=== PATIENT | female | born 1975 | race Caucasian/White ===

== ENCOUNTER 2024-04-24 01:15 | Emergency (ER) | payer SELFPAY ==
[2024-04-24 01:18] VITALS: BP 183/123; PULSE 108; RESP 22; TEMP 37; O2SAT 94; BMI 33.6
[2024-04-24 01:28] VITALS: BP 186/123; PULSE 107; RESP 18; O2SAT 96
[2024-04-24] MEDS: ipratropium-albuterol 3 mL Neb INHALATION (01:40)
[2024-04-24 01:41] VITALS: PULSE 102; RESP 18; O2SAT 93
[2024-04-24] MEDS: dexamethasone 10 mg/mL INJ IM (01:41)
--- NOTE | 2024-04-24 01:45 | XRR_ITS ---
PROCEDURE INFORMATION: Exam: XR Chest Exam date and time: 04/24/2024 1:47 AM Age: 49 years old Clinical indication: Shortness of breath; Additional info: Cough TECHNIQUE: Imaging protocol: Radiologic exam of the chest. Views: 1 view. COMPARISON: No relevant prior studies available. FINDINGS: Lungs: Subtle opacities in the right lung base. Pleural spaces: Unremarkable. No pleural effusion. No pneumothorax. Heart/Mediastinum: Unremarkable. No cardiomegaly. Bones/joints: Unremarkable. XR/XR chest 1V portable [id number] IMPRESSION: Subtle opacities in the right lung base.
--- NOTE | 2024-04-24 01:48 | ED_ITS ---
HPI - SOB/Dyspnea 2 General: Chief Complaint: Shortness of Breath/Dyspnea Stated Complaint: SOB\Cough\Fever Time Seen by Provider: 04/24/24 01:18 History of Present Illness: HPI Narrative: Patient is emergency department with complaints of shortness of breath and cough. Patient had the symptoms for couple weeks. She says her son brought home from school and gave it to her. About 1 week ago she went to her PCP was prescribed antibiotics and steroids she says this has not helped. Patient continues to get worse. Related Data Home Medications Medication Instructions Recorded Confirmed citalopram 40 mg tablet (Celexa) 40 mg PO DAILY 11/13/23 04/17/24 levothyroxine 75 mcg capsule 75 mcg PO DAILY 11/13/23 04/17/24 lisinopril 20 1 tab PO DAILY 11/13/23 04/17/24 mg-hydrochlorothiazide 12.5 mg tablet bupropion HCl 300 mg 24 hr tablet, 300 mg PO QAM 12/22/23 04/17/24 extended release (Wellbutrin XL) Previous Rx's Medication Instructions Recorded albuterol sulfate 2.5 mg/3 mL 2.5 mg (3 mL) inhalation Q6H #180 12/22/23 (0.083 %) solution for nebulization mL albuterol sulfate 90 mcg/actuation 2 puff inhalation Q6H PRN 12/22/23 aerosol inhaler shortness of breath or wheezing #8.5 grams guaifenesin 600 mg tablet, 600 mg PO Q12H #20 tabs 01/20/24 extended release 12 hr fluticasone 250 mcg-salmeterol 50 1 - 2 inh inhalation BID #60 ea 02/26/24 mcg/dose blistr powdr for inhalation (Advair Diskus) amoxicillin 875 mg-potassium 1 tab PO BID #14 tabs 04/17/24 clavulanate 125 mg tablet prednisone 50 mg tablet 50 mg PO DAILY #5 tabs 04/24/24 Allergies Allergy/AdvReac Type Severity Reaction Status Date / Time No Known Allergies Allergy Verified 04/24/24 01:21 Review of Systems 2 General: Reports: 10 or more systems reviewed and unremarkable except in HPI and below PFSH ED 2 PFSH: Social History Smoking and tobacco/nicotine status: never used tobacco/nicotine Physical Exam 2 Const: COMMON NORMALS: no acute distress, average body habitus, patient oriented x3, no limitations, healthy appearing, alert and well nourished HENMT: COMMON NORMALS: normocephalic, atraumatic, hearing grossly normal bilaterally, external ears normal, Normal external nose present and moist oral mucous membranes HEAD & SCALP: normocephalic and atraumatic NOSE: Normal external nose present EXTERNAL EAR: Yes external ears normal Neck/C-Spine: COMMON NORMALS: full ROM, no lymphadenopathy, supple, no meningeal signs, no JVD and Thyroid normal THYROID: Thyroid normal Chest: COMMONS NORMALS: normal inspection of the chest and normal palpation of entire chest wall Resp: COMMON NORMALS: normal respiratory effort, No retractions and No use of accessory muscles; negative for clear to auscultation bilaterally (Decreased breath sounds bilaterally with occasional wheeze) AUSCULTATION: not clear to auscultation bilaterally (Decreased breath sounds bilaterally with occasional wheeze) Cardio: COMMON NORMALS: no JVD, regular rate, regular rhythm, S1 normal heart sound present, S2 normal heart sound present, No gallops present (Cardio), No clicks present (Cardio), No murmurs present (Cardio) and No rub (Cardio) R ATE: regular rate RHYTHM: regular rhythm HEART SOUNDS: S1 normal heart sound present and S2 normal heart sound present GI: COMMON NORMALS: Normal to inspection, nondistended, normoactive bowel sounds present, Soft to palpation, non-tender, No hepatosplenomegaly present and no masses PALPATION: Yes Soft to palpation and Yes No hepatosplenomegaly present Neuro: COMMON NORMALS: patient oriented x3 SENSORIUM/ORIENTATION: Yes alert MENINGEAL SIGNS: Yes no meningeal signs Course 2 Vital Signs: Vital signs: Vital Signs Temperature 98.6 F 04/24/24 01:18 Pulse Rate 102 H 04/24/24 01:41 Respiratory Rate 18 04/24/24 01:41 Blood Pressure 186/123 04/24/24 01:28 Pulse Oximetry 93 04/24/24 01:41 Oxygen Delivery Me thod Room Air 04/24/24 01:41 MDM - SOB/Dyspnea Medical Decision Making Physical exam was performed, lab pain as well as chest x-ray and nasal swab. Were essentially benign. White count was slightly elevated 15.68 this may be due to steroids though subtle opacities in the right lung base may be due to viral illness because patient only has 1 day left of her Augmentin. Patient states she feels better after the DuoNeb and Decadron. We will prescribe prednisone 50 mg 1 pill daily and have her follow back up with her PCP. Medical Records I reviewed the patient's medical records. Lab Data I reviewed the patient's lab results. 04/24/24 02:07 04/24/24 01:45 Labs/Radiology: Radiology Impressions Chest X-Ray 04/24/24 01:45 IMPRESSION: Subtle opacities in the right lung base. Laboratory Results WBC 15.68 10^3/uL (3.29-11.43) H 04/24/24 02:07 Corrected WBC Cancelled 04/24/24 01:45 RBC 4.02 10^6/uL (3.85-5.65) 04/24/24 02:07 Hgb 12.00 g/dL (11.27-16.99) 04/24/24 02:07 Hct 37.4 % (36-47) 04/24/24 02:07 MCV 93.0 fl (85-98) 04/24/24 02:07 MCH 29.9 pg (27-33) 04/24/24 02:07 MCHC 32.1 g/dL (30-55) 04/24/24 02:07 RDW 13.8 % (12.1-15.1) 04/24/24 02:07 Plt Count 283 10^3/cmm (157-399) 04/24/24 02:07 MPV 9.8 fL (7.4-10.4) 04/24/24 02:07 Gran % Cancelled 04/24/24 01:45 Neut % (Auto) 86.4 % 04/24/24 02:07 Lymph % (Auto) 3.9 % 04/24/24 02:07 [place] % (Auto) 2.7 % 04/24/24 02:07 Eos % (Auto) 6.1 % 04/24/24 02:07 Baso % (Auto) 0.4 % 04/24/24 02:07 Neut # (Auto) 13.56 10^3/uL (1.8-7.7) H 04/24/24 02:07 Lymph # (Auto) 0.6 10^3/uL (0.8-4.8) L 04/24/24 02:07 [place] # (Auto) 0.4 10^3/uL (0.2-0.9) 04/24/24 02:07 Eos # (Auto) 1.0 10^3/uL (0.0-0.8) H 04/24/24 02:07 Baso # (Auto) 0.1 10^3/uL (0.0-0.1) 04/24/24 02:07 Absolute Gran (auto) Cancelled 04/24/24 01:45 Nucleated RBC % (auto) 0 % 04/24/24 02:07 Nucleated RBCs # 0.0 /100WBC 04/24/24 02:07 Sodium 135 mmol/L (136-145) L 04/24/24 01:45 Potassium 4.3 mmol/L (3.5-5.1) 04/24/24 01:45 Chloride 104 mmol/L (98-107) 04/24/24 01:45 Carbon Dioxide 22 mmol/L (22-29) 04/24/24 01:45 Anion Gap 13.3 (5-19) 04/24/24 01:45 BUN 23 mg/dL (6-20) H 04/24/24 01:45 Creatinine 0.9 mg/dL (0.5-0.9) 04/24/24 01:45 GFR Calculation 66.5 mL/min (90-130) L 04/24/24 01:45 Glucose 154 mg/dL (65-115) H 04/24/24 01:45 Calculated Osmolality 287 mOsm/kg (285-295) 04/24/24 01:45 Calcium 8.7 mg/dL (8.5-10.5) 04/24/24 01:45 Total Bilirubin 0.2 mg/dL (0.15-1.2) 04/24/24 01:45 AST 20 U/L (0-32) 04/24/24 01:45 ALT 10 U/L (0-33) 04/24/24 01:45 Alkaline Phosphatase 110 U/L (35-105) H 04/24/24 01:45 Total Protein 6.3 g/dL (6.6-8.7) L 04/24/24 01:45 Albumin 3.7 g/dL (3.5-5.2) 04/24/24 01:45 Globulin 2.6 g/dL (1.3-4.6) 04/24/24 01:45 Coronavirus (PCR) Negative (Negative) 04/24/24 01:30 Influenza A (PCR) Negative (Negative) 04/24/24 01:30 Influenza Type B (PCR) Negative (Negative) 04/24/24 01:30 RSV (PCR) Negative (Negative) 04/24/24 01:30 All radiology interpretation(s) finalized by discharge Discharge Plan Discharge Patient Disposition: Home Clinical Impression: Shortness of breath Condition: Stable Prescriptions: New prednisone 50 mg tablet 50 mg PO DAILY Qty: 5 0RF Discontinued prednisone 20 mg tablet 20 mg PO DAILY Qty: 5 0RF No Action lisinopril-hydrochlorothiazide 20-12.5 mg tablet 1 tab PO DAILY levothyroxine 75 mcg capsule 75 mcg PO DAILY citalopram [Celexa] 40 mg tablet 40 mg PO DAILY fluticasone propion-salmeterol [Advair Diskus] 250-50 mcg/dose blister with device 1 - 2 inh inhalation BID Qty: 60 1RF amoxicillin-pot clavulanate 875-125 mg tablet 1 tab PO BID Qty: 14 0RF bupropion HCl [Wellbutrin XL] 300 mg tablet extended release 24 hr 300 mg PO QAM albuterol sulfate 90 mcg/actuation HFA aerosol inhaler 2 puff inhalation Q6H PRN (Reason: shortness of breath or wheezing) Qty: 8.5 4RF albuterol sulfate 2.5 mg /3 mL (0.083 %) solution for nebulization 2.5 mg inhalation Q6H Qty: 180 4RF Rx Instructions: Use every 4-6 hours as needed guaifenesin 600 mg tablet extended release 12hr 600 mg PO Q12H Qty: 20 0RF Discharge Orders: Discharge ED (Routine); Ordered 04/24/24 Ordered By: Shayne Rasmussen Patient Instructions: Shortness of Breath (ED) Activity Restrictions/Additional Instructions: Please finish antibiotics you are prescribed previously on a higher dose of prednisone has been called into your pharmacy. Please take it as directed. Please follow-up with your family practitioner in the next 7 days as needed for further evaluation treatment. Coding Level of Care Code ED Quilting Machine Operator for Roxie Juan
[2024-04-24 02:12] LABS: Basophils # 0.1 10^3/uL (0.0-0.1); Basophils % 0.4 %; Eosinophils % 6.1 %; Hematocrit 37.4 % (36-47); Lymphocytes # 0.6 10^3/uL (0.8-4.8); Lymphocytes % 3.9 %; Mean Corpuscular HGB Conc 32.1 g/dL (30-55); Mean Corpuscular Hemoglobin 29.9 pg (27-33); Mean Platelet Volume 9.8 fL (7.4-10.4); Monocytes # 0.4 10^3/uL (0.2-0.9); Monocytes % 2.7 %; Neutrophils # 13.56 10^3/uL (1.8-7.7); Neutrophils % 86.4 %; Nucleated Red Blood Cells % 0 %; Platelet Count 283 10^3/cmm (157-399); Red Blood Count 4.02 10^6/uL (3.85-5.65); Red Cell Distribution Width 13.8 % (12.1-15.1); White Blood Count 15.68 10^3/uL (3.29-11.43)
[2024-04-24 02:13] LABS: Covid PCR NEGATIVE (Negative); Influenza A NEGATIVE (Negative); Influenza B NEGATIVE (Negative); Respiratory Syncytial Virus Ce NEGATIVE (Negative)
[2024-04-24 02:14] LABS: Alanine Aminotransferase 10 U/L (0-33); Albumin Level 3.7 g/dL (3.5-5.2); Alkaline Phosphatase 110 U/L (35-105); Blood Urea Nitrogen 23 mg/dL (6-20); Calcium 8.7 mg/dL (8.5-10.5); Carbon Dioxide 22 mmol/L (22-29); Chloride 104 mmol/L (98-107); Creatinine Clr Calc Pharmacy 78.6788; Globulin 2.6 g/dL (1.3-4.6); Glomerular Filtration Rate 66.5 mL/min (90-130); Glucose 154 mg/dL (65-115); Osmolality Calculated 287 mOsm/kg (285-295); Sodium 135 mmol/L (136-145); Total Bilirubin 0.2 mg/dL (0.15-1.2); Total Protein 6.3 g/dL (6.6-8.7)
[2024-04-24 02:23] LABS: Anion Gap 13.3 (5-19); Aspartate Amino Transferase 20 U/L (0-32); Potassium 4.3 mmol/L (3.5-5.1)
[2024-04-24 02:43] VITALS: BP 148/109; PULSE 98; O2SAT 96
== END 2024-04-24 02:46 | disposition home or self-care (01) ==
PROVIDERS: Emergency Provider Emergency Medicine
DX: R06.02 Shortness of breath (principal); Z11.52 Encounter for screening for COVID-19
CPT/HCPCS: 0241U; 36415; 71045; 80053; 85025; 94640; 96372; 99284; J1100

== ENCOUNTER 2024-05-25 21:45 | Inpatient (IN) | payer SELFPAY ==
[2024-05-25 21:55] VITALS: BP 152/87; PULSE 107; RESP 24; TEMP 36.9; O2SAT 92; BMI 31.8
--- NOTE | 2024-05-25 22:06 | XRR_ITS ---
PROCEDURE INFORMATION: Exam: XR Chest Exam date and time: 05/25/2024 10:11 PM Age: 49 years old Clinical indication: Cough and shortness of breath; Patient HX: Cough with SOB TECHNIQUE: Imaging protocol: Radiologic exam of the chest. Views: 1 view. COMPARISON: CR (CHEST, ) 04/24/2024 1:47 AM FINDINGS: Lungs: Increasing opacities in the bilateral lung bases, right worse than left suspicious for progression of pneumonia. Clinical correlation and follow-up after treatment should be obtained to ensure resolution. Pleural spaces: Unremarkable. No pleural effusion. No pneumothorax. Heart/Mediastinum: No cardiomegaly. Bones/joints: No acute findings. Small faintly sclerotic focus in the right humeral head, measuring 6 mm. This is nonspecific and may represent bone island. However follow-up/comparison prior study should be considered if there is a concern for metastatic disease. XR/XR chest 1V portable [id number] IMPRESSION: 1. Bibasilar opacities as described. 2. Osseous findings as above.
--- NOTE | 2024-05-25 22:06 | ECG_ITS ---
[facility] [employer] Test Date: 2024-05-25 Pat Name: Yen Harding Department: Room: Gender: Female Environmental Adviser: : 1975 Requested By: Noel Pedersen Order Number: [id number] Shaquille MD: Matthew Sahni M.D. Measurements Intervals [place] Rate: 100 P: 45 AL: 116 QRS: 52 QRSD: 72 T: 55 QT: 338 QTc: 437 Interpretive Statements SINUS TACHYCARDIA OTHERWISE NO SIGNIFICANT ABNORMALITY NOTED ABNORMAL RHYTHM ECG No previous ECG available for comparison Electronically Signed On 05-26-2024 14:04:37 SALES REVIEW CLERK by Matthew Sahni M.D. [id number]
[2024-05-25] MEDS: ipratropium 0.5 mg/2.5 mL Neb INHALATION (22:16)
[2024-05-25 22:17] VITALS: PULSE 99; RESP 22; O2SAT 91
[2024-05-25 22:25] VITALS: PULSE 98; RESP 24; O2SAT 96
[2024-05-25 22:29] LABS: ABG PH Result 7.45 (7.35-7.45); Arterial Blood Gas Hematocrit 38.5 % (37-47); Base Excess ABG -0.1 mmol/L (-2.0-2.0); Blood Gas Sample Type Arterial; Carboxyhemoglobin 1.3 %THgb (0.4-20.1); HCO3 ABG 23.5 mmol/L (22-26); HGB O2 Sat 91.6 % (95-100); Methemoglobin 0.4 % (0.4-1.5); PO2 ABG 58.6 mmHg (80.0-100.0); Total Hemoglobin 12.6 g/dL (12-16)
[2024-05-25 22:30] LABS: Blood Gas Operator Identificat ED; Blood Gas Sample Site Brachial, right; Oxygen Device ROOM AIR; PO2 FiO2 Ratio Arterial Blood 279
[2024-05-25 22:31] LABS: Basophils % 0.3 %; Eosinophils # 0.3 10^3/uL (0.0-0.8); Eosinophils % 2.2 %; Lymphocytes # 0.9 10^3/uL (0.8-4.8); Lymphocytes % 6.9 %; Mean Corpuscular HGB Conc 32.1 g/dL (30-55); Mean Corpuscular Hemoglobin 29.2 pg (27-33); Mean Corpuscular Volume 90.9 fl (85-98); Mean Platelet Volume 10.1 fL (7.4-10.4); Monocytes # 0.6 10^3/uL (0.2-0.9); Monocytes % 4.9 %; Neutrophils % 85.3 %; Nucleated Red Blood Cells % 0 %; Platelet Count 303 10^3/cmm (157-399); Red Blood Count 4.18 10^6/uL (3.85-5.65); Red Cell Distribution Width 14.3 % (12.1-15.1)
[2024-05-25 22:49] LABS: D Dimer 1.08 ug/mLFEU (0-0.59)
[2024-05-25] MEDS: methylPREDNISolone sod succ 125 mg/2 mL INJ IVP (22:50)
[2024-05-25 22:55] LABS: Lactic Sepsis W/Reflex 1.6 mmol/L (0.5-2.2)
--- NOTE | 2024-05-25 23:03 | CTR_ITS ---
PROCEDURE INFORMATION: Exam: CTA Chest With Contrast Exam date and time: 05/25/2024 11:15 PM Age: 49 years old Clinical indication: Cough and shortness of breath and other: Tachycardia; Cough with hemorrhage; Patient HX: Hemoptysis with SOB and tachycardia; Additional info: SOB, tachycardia, hemoptysis TECHNIQUE: Imaging protocol: Computed tomographic angiography of the chest with contrast. Exam focused on the arteries. 3D rendering (Not supervised by radiologist): MIP and/or 3D reconstructed images were created by the technologist. Radiation optimization: All CT scans at this facility use at least one of these dose optimization techniques: automated exposure control; mA and/or kV adjustment per patient size (includes targeted exams where dose is matched to clinical indication); or iterative reconstruction. Contrast material: OMNI 350; Contrast volume: 69 ml; Contrast route: INTRAVENOUS (IV); COMPARISON: CR (CHEST, ) 05/25/2024 10:11 PM RADIATION DOSE METRICS: Total DLP (mGy-cm): 419.13 FINDINGS: Pulmonary arteries: There is no pulmonary embolism in the central-proximal segmental branches. Assessment of the peripheral subsegmental small branches is limited. Aorta: No aortic aneurysm. No aortic dissection. Lungs: Bilateral patchy non round ground-glass opacities, some demonstrating crazy paving pattern. No significant peribronchial thickening. Pleural spaces: Unremarkable. No pneumothorax. No pleural effusion. Heart: No cardiomegaly. No pericardial effusion. Lymph nodes: Unremarkable. No enlarged lymph nodes. Diaphragm: Probable small hiatal hernia. Liver: Somewhat low hepatic parenchymal density suggesting steatosis. Bones/joints: No acute fracture. Soft tissues: Unremarkable. CT/CT angio chest PE protcl [id number] IMPRESSION: 1. No acute PE. 2. Bilateral ground-glass opacities as described. Commonly reported imaging features of COVID-19 pneumonia are present. Other processes such as influenza pneumonia and organizing pneumonia, as can be seen with drug toxicity and connective tissue disease, can cause a similar imaging pattern. (Reference: Naveen) additionally, given history of hemoptysis, interval imaging follow-up exam should also be considered. 3. Probable small hiatal hernia and mild hepatic steatosis. REFERENCES: Naveen Vaughn et al., Radiological Society of [place] Expert Consensus Statement on Reporting Chest CT Findings Related to COVID-19. Endorsed by the Society of Thoracic Radiology, the [employer], and RSNA. Published October 16, 2019.
[2024-05-25 23:06] LABS: Alanine Aminotransferase 7 U/L (0-33); Albumin Level 3.8 g/dL (3.5-5.2); Alkaline Phosphatase 108 U/L (35-105); Anion Gap 16.2 (5-19); Aspartate Amino Transferase 21 U/L (0-32); Blood Urea Nitrogen 16 mg/dL (6-20); Calcium 8.9 mg/dL (8.5-10.5); Carbon Dioxide 22 mmol/L (22-29); Chloride 103 mmol/L (98-107); Globulin 2.9 g/dL (1.3-4.6); Glomerular Filtration Rate 66.5 mL/min (90-130); Glucose 133 mg/dL (65-115); NT Pro B Type Natriuretic Pept 1051 pg/mL (0-125); Osmolality Calculated 289 mOsm/kg (285-295); Potassium 3.2 mmol/L (3.5-5.1); Sodium 138 mmol/L (136-145); Total Bilirubin 0.6 mg/dL (0.15-1.2); Total Protein 6.7 g/dL (6.6-8.7)
[2024-05-25] MEDS: iohexol 350 mg/mL 500 mL Btl (per mL) IV (23:19)
[2024-05-25 23:44] LABS: Covid PCR NEGATIVE (Negative); Influenza A NEGATIVE (Negative); Influenza B NEGATIVE (Negative); Respiratory Syncytial Virus Ce NEGATIVE (Negative)
[2024-05-25 23:47] VITALS: BP 162/106; PULSE 103; RESP 30; O2SAT 96
[2024-05-26] VITALS (19 sets, daily range): BP systolic 137–161; BP diastolic 87–97; PULSE 75–106; RESP 15–39; TEMP 36.6–37.2; O2SAT 90–96
[2024-05-26 00:02] LABS: Bilirubin Urine Negative (Negative); Blood Urine Negative (Negative); Glucose Urine UA Negative (Normal); Ketones Urine 1+ (Negative); Leukocyte Esterase Urine Negative (Negative); Nitrate Urine Negative (Negative); Protein Urine 1+ (Negative); Urine Appearance Clear (CLEAR); Urine Color Yellow (Yellow); pH Urine 5.5 (5-7)
[2024-05-26] MEDS: cefTRIAXone 1,000 mg SDV 1000 MG IVP (00:03)
[2024-05-26] MEDS: AZITHROMYCIN ADD-Vantage 500 MG in 0.9% NaCl ADD-Vantage 250 ML 250 MG IV (00:03)
[2024-05-26 00:08] LABS: Add Urine Microscopic? YES; Bacteria Urine None Seen /hpf; RBC Urine 0-2 /hpf (0-2); Squamous Epithelial Cell Urine 0-5 /hpf (0-5); WBC Urine 0-5 /hpf (0-5)
[2024-05-26 00:09] LABS: Amphetamines Screen Urine Positive (Negative); Barbiturates Screen Urine Negative (Negative); Benzodiazepines Screen Urine Negative (Negative); Cocaine Screen Urine Negative (Negative); Opiate Screen Urine Negative (Negative); PCP Screen Urine Negative (Negative); THC Screen Urine Negative (Negative)
[2024-05-26 00:11] LABS: Specific Gravity, Urine 1.033 (1.005-1.030)
--- NOTE | 2024-05-26 00:31 | ED_ITS ---
HPI - SOB/Dyspnea 2 General: Chief Complaint: Shortness of Breath/Dyspnea Stated Complaint: sob, coughing up blood Time Seen by Provider: 05/25/24 22:01 History of Present Illness: HPI Narrative: 49-year-old female with a 4-day history of increasing shortness of breath cough and congestion. She notes that congestion started in her upper airway and is moved down to her lower airway. She is coughed up some blood today which worries her. She has been quite weak and in bed at home the last 2 days she believes she ran a fever today. Related Data Previous Rx's Medication Instructions Recorded albuterol sulfate 2.5 mg/3 mL 2.5 mg (3 mL) inhalation Q6H #180 12/22/23 (0.083 %) solution for nebulization mL albuterol sulfate 90 mcg/actuation 2 puff inhalation Q6H PRN 12/22/23 aerosol inhaler shortness of breath or wheezing #8.5 grams guaifenesin 600 mg tablet, 600 mg PO Q12H #20 tabs 01/20/24 extended release 12 hr Allergies Allergy/AdvReac Type Severity Reaction Status Date / Time No Known Allergies Allergy Verified 04/24/24 01:21 PFS ED 2 PFSH: Medical History (Updated 05/26/24 @ 01:58 CDT by Jay Rodriguez MD) Hypertension Depression Social History Smoking and tobacco/nicotine status: never used tobacco/nicotine Physical Exam 2 Const: GENERAL APPEARANCE: cooperative, anxious and ill appearing; not frail appearing HENMT: COMMON NORMALS: normocephalic, atraumatic and Normal external nose present HEAD & SCALP: normocephalic and atraumatic FACE & SINUS: normal facial exam and face symmetric NOSE: Normal external nose present Eye: COMMON NORMALS: Equal, round and reactive pupils present and EOMs intact bilaterally PUPIL: Yes Equal, round and reactive pupils present Neck/C-Spine: GENERAL: Yes trachea midline Chest: CHEST: Yes Symmetrical chest wall rise Resp: EFFORT & INSPECTION: Yes symmetric chest movement, Yes tachypneic and Yes labored AUSCULTATION: rhonchi and wheezes Cardio: COMMON NORMALS: regular rhythm RATE: tachycardic RHYTHM: regular rhythm GI: COMMON NORMALS: Normal to inspection, nondistended, normoactive bowel sounds present Extremity: COMMON NORMALS: no pedal edema Neuro: [place] COMA SCALE: document GCS findings [place] coma scale eye opening: Spontaneous [place] coma scale verbal response: Orientated [place] coma scale motor response: Obey commands [place] coma scale total score: 15 S ENSORY EXAM: Yes extremities (intact) Psych: COMMON NORMALS: speech normal SPEECH: Yes normal speech Skin: COMMON NORMALS: no rashes or lesions noted GENERAL SKIN EXAM: no rashes or lesions noted Course 2 Vital Signs: Vital signs: Vital Signs Temperature 98.9 F 05/26/24 01:55 CD T Pulse Rate 101 H 05/26/24 01:55 CD T Respiratory Rate 36 H 05/26/24 01:55 CD T Blood Pressure 153/93 05/26/24 01:55 CD T Pulse Oximetry 95 05/26/24 01:55 CD T Oxygen Delivery Me thod Nasal Cannula 05/26/24 01:56 CD T Oxygen Flow Rate 4 05/26/24 01:05 CD T MDM - SOB/Dyspnea Medical Decision Making Patient was hypoxic on arrival. She is placed on nasal cannula oxygen after blood gas shows a pO2 of 58 on room air. pH is 7.45 with a pCO2 of 34. Potassium is 3.2. Chest x-ray shows bilateral infiltrates. D-dimer is elevated, so CTA was completed showing atypical pneumonia features. No PE present. Potassium is repleted. Urine drug screen is positive for amphetamines. Lactic acid is 1.6. Since she is requiring a significant amount of oxygen, she will be admitted. She has received Rocephin and Zithromax after blood cultures in the ER. COVID/flu/RSV PCR is negative. Lab Data 05/25/24 22:23 05/25/24 22:23 Labs/Radiology: Radiology Impressions Chest X-Ray 05/25/24 22:06 IMPRESSION: 1. Bibasilar opacities as described. 2. Osseous findings as above. Chest CTA 05/25/24 23:03 IMPRESSION: 1. No acute PE. 2. Bilateral ground-glass opacities as described. Commonly reported imaging features of COVID-19 pneumonia are present. Other processes such as influenza pneumonia and organizing pneumonia, as can be seen with drug toxicity and connective tissue disease, can cause a similar imaging pattern. (Reference: Naveen) additionally, given history of hemoptysis, interval imaging follow-up exam should also be considered. 3. Probable small hiatal hernia and mild hepatic steatosis. REFERENCES: Naveen S, et al., Radiological Society of [place] Expert Consensus Statement on Reporting Chest CT Findings Related to COVID-19. Endorsed by the Society of Thoracic Radiology, the [place] [employer], and RSNA. Published October 16, 2019. Laboratory Results WBC 12.90 10^3/uL (3.29-11.43) H 05/25/24 22: RBC 4.18 10^6/uL (3.85-5.65) 05/25/24 22:23 Hgb 12.20 g/dL (11.27-16.99) 05/25/24 22: Hct 38.0 % (36-47) 05/25/24: MCV 90.9 fl (85-98) 05/25/24 22: MCH 29.2 pg (27-33) 05/25/24 22: MCHC 32.1 g/dL (30-55) 05/25/24 22: RDW 14.3 % (12.1-15.1) 05/25/24 22: Plt Count 303 10^3/cmm (157-399) 05/25/24 22: MPV 10.1 fL (7.4-10.4) 05/25/24 22: Neut % (Auto) 85.3 % 05/25/24:23 Lymph % (Auto) 6.9 % 05/25/24 22:23 [place] % (Auto) 4.9 % 05/25/24 22:23 Eos % (Auto) 2.2 % 05/25/24 22:23 Baso % (Auto) 0.3 % 05/25/24:23 Neut # (Auto) 11.00 10^3/uL (1.8-7.7) H 05/25/24 22: Lymph # (Auto) 0.9 10^3/uL (0.8-4.8) 05/25/24 22:23 [place] # (Auto) 0.6 10^3/uL (0.2-0.9) 05/25/24 22:23 Eos # (Auto) 0.3 10^3/uL (0.0-0.8) 05/25/24 22:23 Baso # (Auto) 0.0 10^3/uL (0.0-0.1) 05/25/24 22:23 Nucleated RBC % (auto) 0 % 05/25/24 22:23 Nucleated RBCs # 0.0 /100WBC 05/25/24 22:23 D-Dimer 1.08 ug/mLFEU (0-0.59) H 05/25/24 22:23 Specimen Type Arterial 05/25/24 22:19 Sample Site Brachial, right 05/25/24 22:19 ABG pH 7.45 (7.35-7.45) 05/25/24 22:19 ABG pCO2 34.0 mmHg (35-45) L 05/25/24 22:19 ABG pO2 58.6 mmHg (80.0-100.0) L 05/25/24 22:19 ABG PO2/FiO2 Ratio 279 05/25/24 22:19 ABG HCO3 23.5 mmol/L (22-26) 05/25/24 22:19 ABG Base Excess -0.1 mmol/L (-2.0-2.0) 05/25/24 22:19 Sean Test N/a 05/25/24 22:19 Hematocrit 38.5 % (37-47) 05/25/24 22:19 Hgb O2 Saturation 91.6 % (95-100) L 05/25/24 22:19 Carboxyhemoglobin 1.3 %THgb (0.4-20.1) 05/25/24 22:19 Methemoglobin 0.4 % (0.4-1.5) 05/25/24 22:19 Total Hemoglobin 12.6 g/dL (12-16) 05/25/24 22:19 O2 Delivery Device Room air 05/25/24 22:19 FiO2 21.0 % 05/25/24 22:19 Form Grader Operator ID Ed 05/25/24 22:19 Sodium 138 mmol/L (136-145) 05/25/24 22:23 Potassium 3.2 mmol/L (3.5-5.1) L 05/25/24 22:23 Chloride 103 mmol/L (98-107) 05/25/24 22:23 Carbon Dioxide 22 mmol/L (22-29) 05/25/24 22:23 Anion Gap 16.2 (5-19) 05/25/24 22:23 BUN 16 mg/dL (6-20) 05/25/24 22:23 Creatinine 0.9 mg/dL (0.5-0.9) 05/25/24 22:23 GFR Calculation 66.5 mL/min (90-130) L 05/25/24 22:23 Glucose 133 mg/dL (65-115) H 05/25/24 22:23 Calculated Osmolality 289 mOsm/kg (285-295) 05/25/24 22:23 Lactic Acid 1.6 mmol/L (0.5-2.2) 05/25/24 22:23 Calcium 8.9 mg/dL (8.5-10.5) 05/25/24 22:23 Total Bilirubin 0.6 mg/dL (0.15-1.2) 05/25/24 22:23 AST 21 U/L (0-32) 05/25/24 22:23 ALT 7 U/L (0-33) 05/25/24 22:23 Alkaline Phosphatase 108 U/L (35-105) H 05/25/24 22:23 NT-Pro-B Natriuret Pep 1051 pg/mL (0-125) H 05/25/24 22:23 Total Protein 6.7 g/dL (6.6-8.7) 05/25/24 22:23 Albumin 3.8 g/dL (3.5-5.2) 05/25/24 22:23 Globulin 2.9 g/dL (1.3-4.6) 05/25/24 22:23 Urine Color Yellow (Yellow) 05/25/24 23:45 Urine Appearance Clear (CLEAR) 05/25/24 23:45 Urine pH 5.5 (5-7) 05/25/24 23:45 Ur Specific [place] 1.033 (1.005-1.030) H 05/25/24 23:45 Urine Protein 1+ (Negative) A 05/25/24 23:45 Urine Glucose (UA) Negative (Normal) 05/25/24 23:45 Urine Ketones 1+ (Negative) H 05/25/24 23:45 Urine Blood Negative (Negative) 05/25/24 23:45 Urine Nitrate Negative (Negative) 05/25/24 23:45 Urine Bilirubin Negative (Negative) 05/25/24 23:45 Urine Urobilinogen 1.0 mg/dL (Negative) 05/25/24 23:45 Ur Leukocyte Esterase Negative (Negative) 05/25/24 23:45 Urine RBC 0-2 /hpf (0-2) 05/25/24 23:45 Urine WBC 0-5 /hpf (0-5) 05/25/24 23:45 Ur Squamous Epith Cells 0-5 /hpf (0-5) 05/25/24 23:45 Amorphous Sediment Not Reportable 05/25/24 23:45 Urine Bacteria None seen /hpf (NONE) 05/25/24 23:45 Hyaline Casts 0.40 /lpf 05/25/24 23:45 Urine Opiates Screen Negative ng/mL (Negative) 05/25/24 23:45 Ur Barbiturates Screen Negative ng/mL (Negative) 05/25/24 23:45 Ur Phencyclidine Scrn Negative ng/mL (Negative) 05/25/24 23:45 Ur Amphetamines Screen Positive ng/mL (Negative) H 05/25/24 23:45 U Benzodiazepines Scrn Negative ng/mL (Negative) 05/25/24 23:45 Urine Cocaine Screen Negative ng/mL (Negative) 05/25/24 23:45 U Marijuana (THC) Screen Negative ng/mL (Negative) 05/25/24 23:45 Coronavirus (PCR) Negative (Negative) 05/25/24 23:01 Influenza A (PCR) Negative (Negative) 05/25/24 23:01 Influenza Type B (PCR) Negative (Negative) 05/25/24 23:01 RSV (PCR) Negative (Negative) 05/25/24 23:01 All radiology interpretation(s) finalized by discharge Discharge Plan Discharge Patient Disposition: Admitted As Inpatient Admit Provider: Jay Rodriguez Clinical Impression: Community acquired pneumonia, Acute hypoxemic respiratory failure Condition: Stable Coding Level of Care Code ED Bottler for Roxie Juan
[2024-05-26] MEDS: potassium chloride ER 20 mEq Tablet 40 MEQ PO (01:02)
--- NOTE | 2024-05-26 01:07 | P.HP_ITS ---
Providers/Chief Complaint 2 Admitting Physician: Jay Rodriguez MD Chief Complaint: sob, coughing up blood History of Present Illness Yen Harding is a 49 year old female Medications/Allergies Home Medications Medication Instructions Recorded Confirmed Last Taken Type albuterol sulfate 2.5 mg/3 mL 2.5 mg (3 mL) inhalation Q6H #180 12/22/23 05/26/24 Unknown Rx (0.083 %) solution for nebulization mL albuterol sulfate 90 mcg/actuation 2 puff inhalation Q6H PRN 12/22/23 05/26/24 Unknown Rx aerosol inhaler shortness of breath or wheezing #8.5 grams guaifenesin 600 mg tablet, 600 mg PO Q12H #20 tabs 01/20/24 05/26/24 Unknown Rx extended release 12 hr Allergies Allergy/AdvReac Type Severity Reaction Status Date / Time No Known Allergies Allergy Verified 04/24/24 01:21 PFSH Acute 2 PFSH: Medical History (Updated 05/26/24 @ 01:58 CDT by Jay Rodriguez MD) Hypertension Depression Social History Smoking and tobacco/nicotine status: never used tobacco/nicotine Vitals/I&O/Wt Last Vital Signs Temp 98.9 F 05/26/24 01:55 CDT Pulse 101 H 05/26/24 01:55 CDT Resp 36 H 05/26/24 01:55 CDT BP 153/93 05/26/24 01:55 CDT Pulse Ox 95 05/26/24 01:55 CDT O2 Del Method Nasal Cannula 05/26/24 01:55 CDT O2 Flow Rate 4 05/26/24 01:05 CDT 05/25/24 05/25/24 05/26/24 14:59 22:59 05:59 Intake Total 250 / 250 Balance 250 / 250 Weight last 48 hrs Weight 81.647 kg Data 05/25/24 22:23 05/25/24 22:23 Micro: Microbiology 05/25/24 22:26 Blood Culture - Preliminary Blood SPECIMEN COLLECTED 05/25/24 22:23 Blood Culture - Preliminary Blood SPECIMEN COLLECTED Coding Level of Care Code Acute Code for Chg Fwd
[2024-05-26] MEDS: guaiFENesin 600 mg Tablet PO (01:09)
[2024-05-26] MEDS: citalopram 20 mg Tablet 40 MG PO (01:09)
[2024-05-26] MEDS: enoxaparin 40 mg/0.4 mL Syringe SUBCUT (01:09)
--- NOTE | 2024-05-26 01:45 | P.HP_ITS ---
Providers/Chief Complaint 2 Admitting Physician: Jay Rodriguez MD Primary Care Provider: None local Last PCP in [place] Chief Complaint: sob, coughing up blood History of Present Illness Yen Harding is a 49 year old female who has been sick for 3 days with cough and asthma attack. She has been coughing up blood. Patient denies asthma as a child but states that since she developed COVID about 4 years ago contracted just before the vaccine came out she has had reactive airways, asthma attacks exacerbated by communicable respiratory illness and or anxiety. She has typically required steroids to improve. Patient moved here from [place] approximately 1 year ago having met a man and and moved locally. He is a contractor. Patient reports that they have marital problems and he moved out 2 days ago and she is filing for divorce. Patient has no car away into the hospital. He has a 16-year-old son that is being cared for by a friend currently. Patient states that she is distressed and unable to breathe. She has been unable to refill her medications having [place] Medicaid for insurance. She has filed for local insurance in [place] but has not been enrolled or assigned PCP. Patient states that she has recently been depressed and out of her citalopram. She has taken that for years since age 16. She admits that she has developed a tic from that which they told her would not develop but only with taking antipsychotics which she has not been on. I addressed her recurrent respiratory illness and drug screen positive for amphetamines suspicious that she was smoking methamphetamine. Patient states that she has been using methamphetamines for about 1 month she and her were using this for increasing sexual libido. She says that she does not feel well and is also overweight now running out of her medications and he had suggested that she use meth. She states she does not smoke it but is only taking capsules. does smoke meth. 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 or discharge Neuro no seizures or strokes Psychiatric patient admits to depression she has been thinking that her life is over with his divorce but has not been suicidal Medications/Allergies Home Medications Medication Instructions Recorded Confirmed Last Taken Type albuterol sulfate 2.5 mg/3 mL 2.5 mg (3 mL) inhalation Q6H #180 12/22/23 05/26/24 Unknown Rx (0.083 %) solution for nebulization mL albuterol sulfate 90 mcg/actuation 2 puff inhalation Q6H PRN 12/22/23 05/26/24 Unknown Rx aerosol inhaler shortness of breath or wheezing #8.5 grams guaifenesin 600 mg tablet, 600 mg PO Q12H #20 tabs 01/20/24 05/26/24 Unknown Rx extended release 12 hr Allergies Allergy/AdvReac Type Severity Reaction Status Date / Time No Known Allergies Allergy Verified 04/24/24 01:21 PFSH Acute 2 PFSH: Medical History (Updated 05/26/24 @ 01:58 CDT by Jay Rodriguez MD) Hypertension Depression Social History Smoking and tobacco/nicotine status: never used tobacco/nicotine Female Reproductive History: Other female reproductive history: RICARDO/BSO at age 39 not on hormone replacement Vitals/I&O/Wt Last Vital Signs Temp 98.4 F 05/25/24 21:55 Pulse 101 H 05/26/24 01:05 CDT Resp 19 H 05/26/24 01:05 CDT BP 138/97 05/26/24 01:05 CDT Pulse Ox 95 05/26/24 01:05 CDT O2 Del Method Nasal Cannula 05/26/24 01:05 CDT O2 Flow Rate 4 05/26/24 01:05 CDT Weight last 48 hrs Weight 81.647 kg Physical Exam 2 Narrative: General Well-developed well-nourished white female with central obesity she is in mild respiratory distress with tachypnea and anxious mood CV regular rate and rhythm Lungs prolonged respiratory phase with wheezing but good air movement Abdomen positive bowel sounds soft obese nontender Calves no tenderness cords appreciable edema Mood and affect anxious and depressed Skin warm and dry Hygiene some body odor Oral Mallampati 1 dentition intact Neck no bruits Data 05/25/24 22:23 05/25/24 22:23 Micro: Microbiology 05/25/24 22:26 Blood Culture - Preliminary Blood SPECIMEN COLLECTED 05/25/24 22:23 Blood Culture - Preliminary Blood SPECIMEN COLLECTED A&P Assessment and plan (1) Acute hypoxemic respiratory failure: X-ray and CT show bilateral pneumonia. Patient denies methamphetamine smoking just taking orally. Start Decadron 4 mg twice a day continue Rocephin and azithromycin. Patient will be admitted to the hospital and anticipate greater than 2 midnights (2) Community acquired pneumonia: As above (3) Surgical menopause, symptomatic: Patient had surgical menopause at age 39. She is reporting some sexual dysfunction. She should establish with PCP and consider hormone replacement with estrogen progesterone and low-dose testosterone (4) Methamphetamine use disorder, mild: Patient is counseled that methamphetamines unhealthy and appears to be worsening her nervous tic as well as her breathing and anxiety. Patient is agreeable to this evaluation and intends to quit (5) Depression: Resume citalopram and bupropion. Patient denies suicidal ideation. Patient is very concerned about getting her SSRI prescription refilled. I have referred her to social work supervisor for help with enrolling in Medicaid and establishing with a local physician (6) Hypothyroidism: Resume levothyroxine. Patient has been out for 2 weeks (7) Hypertension: Resume lisinopril hold HCTZ portion Attestations 2 Medical Necessity Statement*: Anticipate the patient's hospitalization will cross 2 midnights Coding Level of Care Code 45043 Diagnoses Acute hypoxemic respiratory failure J96.01 Community acquired pneumonia J18.9 Surgical menopause, symptomatic E89.41 Methamphetamine use disorder, mild F15.10 Depression F32.A Hypothyroidism E03.9 Hypertension I10 Time Spent (min) 70
[2024-05-26] MEDS: LORazepam 0.5 mg Tablet PO ×2 (01:48→21:11)
--- NOTE | 2024-05-26 02:25 | PM.HP ---
Providers/Chief Complaint Admitting Physician: Jay Rodriguez MD Primary Care Provider: Physician in [place] none local Chief Complaint: sob, coughing up blood History of Present Illness Yen Harding is a 49 year old female who I saw in the emergency department and dictated a full note which was lost. I think it was lost due to time change and [employer] glitch. I started dictating within the 1 AM to 2 AM time. And saved a full note but when we open none of the boxes were filled in. This will represent a redictation of what I can recall 49-year-old female reports 3 days of progressive respiratory illness. This is characterized by cough wheezing and now productive of blood. She states that 4 years ago she had contracted COVID and since then has been afflicted with reactive airway disease needing steroids and antibiotics. Prior to that illness as a child and adolescent she did not have asthma. The last 6 months the reactive airways seem to be exacerbated also by anxiety. She reports going through anxiety currently due to break-up and starting divorce with her . Patient states she knows her for 2 years but he has proven to be a different person than she a year ago. She has a 16-year-old son that lives with her and currently cared for by a friend while patient is in the hospital. has moved out 2 days ago and declined to drive her to the hospital. Reviewing her cough recurrent ER visits for respiratory illness and amphetamine positive urine I question her regarding methamphetamine smoking and she states she has been taking methamphetamine capsules concomitant with her 's methamphetamine use via smoking to try and improve her sexual libido. She states it is done nothing for that but has caused her anxiety. Patient reports RICARDO/BSO for 18 pound right ovarian mass at age 39 Patient moved here from [place]. 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 She denies tobacco use or weed. She has used meth capsules for a month about 6 times. She wants full CODE STATUS. Review of Systems Narrative: General Positive for weight gain she has been out of her medications for 2 weeks. Patient reports anxiety and depression without suicidal plan or intent she has been feeling hopeless with her life currently. 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 She she says was told that only occurred with antipsychotics but occurred with her SSRI Currently stressed out over separation and intended divorce from her also financially struggling and has no car Medications/Allergies Home Medications Medication Instructions Recorded Confirmed Last Taken Type albuterol sulfate 2.5 mg/3 mL 2.5 mg (3 mL) inhalation Q6H #180 12/22/23 05/26/24 Unknown Rx (0.083 %) solution for nebulization mL albuterol sulfate 90 mcg/actuation 2 puff inhalation Q6H PRN 12/22/23 05/26/24 Unknown Rx aerosol inhaler shortness of breath or wheezing #8.5 grams guaifenesin 600 mg tablet, 600 mg PO Q12H #20 tabs 01/20/24 05/26/24 Unknown Rx extended release 12 hr Allergies Allergy/AdvReac Type Severity Reaction Status Date / Time No Known Allergies Allergy Verified 04/24/24 01:21 PFSH Acute PFSH: Medical History (Updated 05/26/24 @ 01:58 CDT by Jay Rodriguez MD) Hypertension Depression Social History Smoking and tobacco/nicotine status: never used tobacco/nicotine Vitals/I&O/Wt Last Vital Signs Temp 98.9 F 05/26/24 01:55 CDT Pulse 101 H 05/26/24 01:55 CDT Resp 36 H 05/26/24 01:55 CDT BP 153/93 05/26/24 01:55 CDT Pulse Ox 95 05/26/24 01:55 CDT O2 Del Method Nasal Cannula 05/26/24 01:56 CDT O2 Flow Rate 4 05/26/24 01:05 CDT 05/25/24 05/25/24 05/26/24 14:59 22:59 05:59 Intake Total 250 / 250 Balance 250 / 250 Weight last 48 hrs Weight 87.175 kg Weight 81.647 kg Physical Exam Narrative: General Well-developed well-nourished female with central obesity CV regular rate and rhythm Lungs prolong expiratory phase with wheezing air movement is good Abdomen positive bowel sounds soft nontender Calves no tenderness or pedal edema dorsal pedal pulses 2+ Mood and affect depressed and anxious Neuro she has recurrent jerky take like head movements pupils are equally round and reactive speech is clear patient is alert and oriented and pleasant Hygiene diminished with some body odor Data 05/25/24 22:23 05/25/24 22:23 Micro: Microbiology 05/25/24 22:26 Blood Culture - Preliminary Blood SPECIMEN COLLECTED 05/25/24 22:23 Blood Culture - Preliminary Blood SPECIMEN COLLECTED A&P Assessment and plan (1) Acute hypoxemic respiratory failure: Patient with bilateral infiltrates seen on x-ray and very evident on CT scan with some dense stranding infiltrates. Will continue Rocephin and azithromycin started in the emergency department. Start Decadron 4 mg twice a day. He received 1 dose of Solu-Medrol 125 mg in the ER. I was concerned that she might be smoking methamphetamines and having a bad reaction but she denies smoking meth and does admit to oral capsules. She is not a smoker of weed or tobacco. She reports propensity for illness subsequent to COVID infection 4 years ago. (2) Community acquired pneumonia: As above (3) Methamphetamine use disorder, mild: Patient is counseled to discontinue methamphetamines. (4) Surgical menopause, symptomatic: I did not get a chance to address hormone replacement with her and that should be undertaken outpatient but given her decreased libido and sexual function consider estrogen, progesterone and testosterone in hormonal therapy (5) Depression: Patient reports her depression typically well-controlled exacerbated by marital problems and no local insurance to obtain medications and no car. I have consulted psychiatric social worker supervisor. I think she should also be referred to mental health outpatient if not inpatient depending on how she is doing in 1 to 2 days. (6) Hypothyroidism: Patient has been out of levothyroxine 2 weeks. I reinstated that today (7) Hypertension: Hold HCTZ resume lisinopril monitor blood pressure Attestations Medical Necessity Statement*: Anticipate the patient's hospitalization will span greater than 2 midnights. Coding Level of Care Code 07869 Diagnoses Acute hypoxemic respiratory failure J96.01 Community acquired pneumonia J18.9 Methamphetamine use disorder, mild F15.10 Surgical menopause, symptomatic E89.41 Depression F32.A Hypothyroidism E03.9 Hypertension I10 Time Spent (min) 70
[2024-05-26] MEDS: benzonatate 100 mg Capsule 200 MG PO ×3 (02:47→18:10)
[2024-05-26] MEDS: albuterol 2.5 mg/3 mL Neb INHALATION (04:20)
[2024-05-26] MEDS: levothyroxine 75 mcg Tablet PO (05:14)
[2024-05-26] MEDS: ipratropium-albuterol 3 mL Neb INHALATION ×5 (08:11→23:33)
[2024-05-26 09:13] LABS: HIV 1 & 2 Antibody Non-Reactive (Non-Reactiv); HIV 1 & 2 Antigen Non-Reactive (Non-Reactiv)
[2024-05-26 09:17] LABS: Hepatitis A Antibody IgM Non-Reactive (Nonreactive); Hepatitis B Core IgM Non-Reactive (Nonreactive); Hepatitis B Surface Antigen Non-Reactive (Nonreactive); Hepatitis C Virus Antibody Non-Reactive (Nonreactive)
[2024-05-26] MEDS: buPROPion XL (24 HR) 300 mg Tablet PO (10:06)
[2024-05-26] MEDS: BuSPIRONE 10 mg Tablet PO ×2 (10:06→18:11)
[2024-05-26] MEDS: lisinopril 20 mg Tablet PO (10:07)
[2024-05-26] MEDS: fluticasone nasal spray 16gm Btl 1 SPRAY NASAL ×2 (10:09→18:11)
[2024-05-26] MEDS: budesonide 0.5 mg/2 mL Neb INHALATION ×2 (11:24→20:29)
[2024-05-26] MEDS: methylPREDNISolone sod succ 40 mg/mL INJ IVP ×2 (11:41→18:11)
--- NOTE | 2024-05-26 15:13 | P.PN_ITS ---
Subjective 2 Subjective: Was seen this morning, she is actively wheezing, has a nonproductive cough, no fevers, no chills, mild nasal flaring, mild intercostal retractions, tachypnea, short of breath with a few words, denies any chest pain, Vitals/I&O/Wt Last Vital Signs Temp 98.2 F 05/26/24 11:52 Pulse 92 05/26/24 11:52 Resp 21 H 05/26/24 11:52 BP 137/92 05/26/24 11:52 Pulse Ox 96 05/26/24 11:52 O2 Del Method Nasal Cannula 05/26/24 11:52 O2 Flow Rate 2 05/26/24 11:25 05/26/24 05/26/24 05/26/24 06:59 14:59 22:59 Intake Total 480 / 480 Balance 480 / 480 Weight last 48 hrs Weight 87.09 kg Weight 87.175 kg Weight 81.647 kg Physical Exam 2 Const: COMMON NORMALS: no acute distress and patient oriented x3 Resp: OTHER: Wheezing in all lung rehman, tachypnea, tachycardia, mild nasal flaring, mild intercostal retractions Cardio: COMMON NORMALS: regular rhythm, S1 normal heart sound present and S2 normal heart sound present RATE: tachycardic RHYTHM: regular rhythm H EART SOUNDS: S1 normal heart sound present and S2 normal heart sound present GI: COMMON NORMALS: Normal to inspection, nondistended, normoactive bowel sounds present and non-tender Extremity: COMMON NORMALS: no pedal edema Neuro: COMMON NORMALS: patient oriented x3 Psych: COMMON NORMALS: mental status grossly normal Data 05/25/24 22:23 05/25/24 22:23 Micro: Microbiology 05/25/24 22:26 Blood Culture - Preliminary Blood SPECIMEN COLLECTED 05/25/24 22:23 Blood Culture - Preliminary Blood SPECIMEN COLLECTED A&P Assessment and plan (1) Acute hypoxemic respiratory failure: (2) Community acquired pneumonia: (3) Methamphetamine use disorder, mild: Patient is counseled to discontinue methamphetamines. (4) Surgical menopause, symptomatic: (5) Depression: (6) Hypothyroidism: Patient has been out of levothyroxine 2 weeks. I reinstated that today (7) Hypertension: Hold HCTZ resume lisinopril monitor blood pressure (8) Asthma exacerbation: Plan Acute hypoxic respiratory failure -Secondary to pneumonia -Secondary to asthma exacerbation -CTA chest CT/CT angio chest PE protcl [id number] IMPRESSION: 1. No acute PE. 2. Bilateral ground-glass opacities as described. Commonly reported imaging features of COVID-19 pneumonia are present. Other processes such as influenza pneumonia and organizing pneumonia, as can be seen with drug toxicity and connective tissue disease, can cause a similar imaging pattern. (Reference: Naveen) additionally, given history of hemoptysis, interval imaging follow-up exam should also be considered. 3. Probable small hiatal hernia and mild hepatic steatosis. Plan -Monitor respiratory status closely -DuoNeb -Budesonide -Continue Rocephin -Continue azithromycin -Prednisone 40 mg IV push every 8 hours -Sputum cultures -Shiraz Bee for cough -Full code -Lovenox for DVT prophylaxis Attestations 2 Medical Necessity Statement*: Patient requires hospitalization, inpatient, greater than 2 midnights, for acute hypoxic respiratory failure secondary to pneumonia, exacerbation of her asthma exacerbation Diagnoses Acute hypoxemic respiratory failure J96.01 Community acquired pneumonia J18.9 Methamphetamine use disorder, mild F15.10 Surgical menopause, symptomatic E89.41 Depression F32.A Hypothyroidism E03.9 Hypertension I10 Asthma exacerbation J45.901
[2024-05-27] VITALS (12 sets, daily range): BP systolic 140–154; BP diastolic 82–96; PULSE 82–110; RESP 16–28; TEMP 36.6–36.8; O2SAT 92–97
[2024-05-27] MEDS: cefTRIAXone 1,000 mg SDV 1000 MG IVP (00:40)
[2024-05-27] MEDS: benzonatate 100 mg Capsule 200 MG PO ×3 (00:41→22:28)
[2024-05-27] MEDS: enoxaparin 40 mg/0.4 mL Syringe SUBCUT (00:52)
[2024-05-27] MEDS: methylPREDNISolone sod succ 40 mg/mL INJ IVP ×3 (02:16→16:56)
[2024-05-27] MEDS: ipratropium-albuterol 3 mL Neb INHALATION ×5 (03:02→20:41)
[2024-05-27 05:53] LABS: Basophils % 0.1 %; Hematocrit 38.1 % (36-47); Lymphocytes # 0.7 10^3/uL (0.8-4.8); Lymphocytes % 3.9 %; Mean Corpuscular HGB Conc 31.5 g/dL (30-55); Mean Corpuscular Hemoglobin 29.1 pg (27-33); Mean Corpuscular Volume 92.5 fl (85-98); Mean Platelet Volume 10.8 fL (7.4-10.4); Monocytes # 0.3 10^3/uL (0.2-0.9); Monocytes % 1.8 %; Neutrophils # 16.24 10^3/uL (1.8-7.7); Neutrophils % 93.5 %; Nucleated Red Blood Cells % 0 %; Platelet Count 316 10^3/cmm (157-399); Red Blood Count 4.12 10^6/uL (3.85-5.65); Red Cell Distribution Width 14.5 % (12.1-15.1); White Blood Count 17.38 10^3/uL (3.29-11.43)
[2024-05-27 06:18] LABS: Anion Gap 14.8 (5-19); Blood Urea Nitrogen 26 mg/dL (6-20); Calcium 8.9 mg/dL (8.5-10.5); Carbon Dioxide 23 mmol/L (22-29); Chloride 104 mmol/L (98-107); Creatinine Clr Calc Pharmacy 90.6821; Glomerular Filtration Rate 76.2 mL/min (90-130); Glucose 164 mg/dL (65-115); Osmolality Calculated 294 mOsm/kg (285-295); Potassium 3.8 mmol/L (3.5-5.1); Sodium 138 mmol/L (136-145)
[2024-05-27] MEDS: levothyroxine 75 mcg Tablet PO (06:28)
[2024-05-27] MEDS: lisinopril 20 mg Tablet PO (08:32)
[2024-05-27] MEDS: citalopram 20 mg Tablet 40 MG PO (08:32)
[2024-05-27] MEDS: BuSPIRONE 10 mg Tablet PO ×2 (08:32→16:56)
[2024-05-27] MEDS: buPROPion XL (24 HR) 300 mg Tablet PO (08:33)
[2024-05-27] MEDS: azithromycin 250 mg Tablet 500 MG PO (08:33)
[2024-05-27] MEDS: fluticasone nasal spray 16gm Btl 1 SPRAY NASAL ×2 (08:33→16:56)
[2024-05-27] MEDS: budesonide 0.5 mg/2 mL Neb INHALATION ×2 (08:41→20:41)
--- NOTE | 2024-05-27 09:56 | PC.CHAP ---
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 [] Patient/Family/Request visit [] Outpatient visit [] Follow-up visit [] Physician referral [] Code/Alert [x] Routine visit [] Staff referral [] Actively dying [x] Patient sleeping [] Family support [] [] Out of room [] Palliative care [] [] Receiving care in room [] Pre-surgical visit [] Trauma [] Long length of stay [] ICU visit [] Other: Relational/Emotional Strength [] Patient feels connected with others/family/visitors/staff [] Distress [] Loneliness/isolation [] Abandonment Spirituality of Patient [] Person of Manisha [] Attends Judaism of their Manisha [] Believes in Prayer [] Reads Bible or Advent materials [] There are Spiritual issues to be addressed Neurology Nurse Interventions [x] Prayer [] Active listening [] Non-anxious presence [] Spiritual/emotional support [] Crisis/trauma care [] Spiritual counseling [] Bereavement support [] Provided bereavement packet [] Provided Bible/devotional materials [] Provided toy/stuffed animal, coloring book to patient or family member [] Provided Communion [] Anointing/[place] [] Salvation [] Completed spiritual assessment [] Other: Impact on Illness or Injury [] Angry [] Fearful [] Anxious [] Often cries [] Exhaustion [] Unable to work [] Unable to attend zoroastrianism [] Unable to walk/stand [] Unable to read [] Unable to drive [] Unable to eat/drink [] Unable to sleep [] Unable to be with family [] Patient intubated [] Other: Summary Time spent with patient
--- NOTE | 2024-05-27 16:20 | P.PN_ITS ---
Subjective 2 Subjective: Patient was seen this morning, continues to complain of wheezing, shortness of breath, tachypnea, but overall she tells me that she is better compared to yesterday she is able to speak a full sentence without feeling short of breath, does have a cough, no fevers Vitals/I&O/Wt Last Vital Signs Temp 98.1 F 05/27/24 16:00 Pulse 110 H 05/27/24 16:00 Resp 18 05/27/24 16:00 BP 154/89 05/27/24 16:00 Pulse Ox 96 05/27/24 16:00 O2 Del Method Nasal Cannula 05/27/24 16:00 O2 Flow Rate 2 05/27/24 15:32 05/27/24 05/27/24 05/27/24 06:59 14:59 22:59 Intake Total 720 / 720 Balance 720 / 720 Weight last 48 hrs Weight 90.22 kg Weight 87.09 kg Weight 87.175 kg Weight 81.647 kg Physical Exam 2 Const: COMMON NORMALS: no acute distress and patient oriented x3 Resp: COMMON NORMALS: normal respiratory effort and No use of accessory muscles AUSCULTATION: wheezes OTHER: Tachypnea Cardio: COMMON NORMALS: regular rhythm, S1 normal heart sound present and S2 normal heart sound present RATE: tachycardic RHYTHM: regular rhythm H EART SOUNDS: S1 normal heart sound present and S2 normal heart sound present GI: COMMON NORMALS: Normal to inspection, nondistended, normoactive bowel sounds present and non-tender Extremity: COMMON NORMALS: no pedal edema Neuro: COMMON NORMALS: patient oriented x3 Psych: COMMON NORMALS: mental status grossly normal Data 05/27/24 04:50 05/27/24 04:50 Micro: Microbiology 05/25/24 22:26 Blood Culture - Preliminary Blood NEGATIVE TO DATE 05/25/24 22:23 Blood Culture - Preliminary Blood NEGATIVE TO DATE A&P Assessment and plan (1) Acute hypoxemic respiratory failure: (2) Community acquired pneumonia: (3) Methamphetamine use disorder, mild: Patient is counseled to discontinue methamphetamines. (4) Surgical menopause, symptomatic: (5) Depression: (6) Hypothyroidism: Patient has been out of levothyroxine 2 weeks. I reinstated that today (7) Hypertension: Hold HCTZ resume lisinopril monitor blood pressure (8) Asthma exacerbation: Plan Acute hypoxic respiratory failure -Secondary to pneumonia -Secondary to asthma exacerbation -CTA chest CT/CT angio chest PE protcl [id number] IMPRESSION: 1. No acute PE. 2. Bilateral ground-glass opacities as described. Commonly reported imaging features of COVID-19 pneumonia are present. Other processes such as influenza pneumonia and organizing pneumonia, as can be seen with drug toxicity and connective tissue disease, can cause a similar imaging pattern. (Reference: Naveen) additionally, given history of hemoptysis, interval imaging follow-up exam should also be considered. 3. Probable small hiatal hernia and mild hepatic steatosis. Plan -Monitor respiratory status closely -DuoNeb -Budesonide -Continue Rocephin -Continue azithromycin -Prednisone 40 mg IV push every 8 hours -Sputum cultures -Tessalon Cristal for cough -Full code -Lovenox for DVT prophylaxis Patient appears to be in mild respiratory distress, still active wheezing, tachypnea, tachycardia, continue to monitor closely IV antibiotics, steroids Attestations 2 Medical Necessity Statement*: Patient requires hospitalization for acute hypoxic respiratory failure, secondary to pneumonia, asthma Diagnoses Acute hypoxemic respiratory failure J96.01 Community acquired pneumonia J18.9 Methamphetamine use disorder, mild F15.10 Surgical menopause, symptomatic E89.41 Depression F32.A Hypothyroidism E03.9 Hypertension I10 Asthma exacerbation J45.901
[2024-05-27] MEDS: acetaminophen 325 mg Tablet 650 MG PO (19:41)
[2024-05-27] MEDS: LORazepam 0.5 mg Tablet PO (21:52)
[2024-05-28] VITALS (20 sets, daily range): BP systolic 147–169; BP diastolic 85–110; PULSE 89–114; RESP 15–20; TEMP 36.7–36.8; O2SAT 91–98
[2024-05-28] MEDS: ipratropium-albuterol 3 mL Neb INHALATION ×7 (00:38→23:48)
[2024-05-28] MEDS: enoxaparin 40 mg/0.4 mL Syringe SUBCUT (00:58)
[2024-05-28] MEDS: cefTRIAXone 1,000 mg SDV 1000 MG IVP ×2 (00:58→23:18)
[2024-05-28] MEDS: guaiFENesin 600 mg Tablet PO (01:01)
[2024-05-28] MEDS: methylPREDNISolone sod succ 40 mg/mL INJ IVP ×3 (01:46→16:51)
[2024-05-28] MEDS: levothyroxine 75 mcg Tablet PO (05:26)
[2024-05-28 06:01] LABS: Basophils % 0.2 %; Lymphocytes # 0.7 10^3/uL (0.8-4.8); Lymphocytes % 3.7 %; Mean Corpuscular HGB Conc 31.1 g/dL (30-55); Mean Corpuscular Hemoglobin 29.2 pg (27-33); Mean Corpuscular Volume 94.1 fl (85-98); Mean Platelet Volume 10.8 fL (7.4-10.4); Monocytes # 0.6 10^3/uL (0.2-0.9); Monocytes % 3.1 %; Neutrophils # 17.62 10^3/uL (1.8-7.7); Neutrophils % 91.6 %; Nucleated Red Blood Cells % 0 %; Platelet Count 347 10^3/cmm (157-399); Red Blood Count 4.04 10^6/uL (3.85-5.65); Red Cell Distribution Width 14.7 % (12.1-15.1); White Blood Count 19.24 10^3/uL (3.29-11.43)
[2024-05-28 06:18] LABS: Alanine Aminotransferase 8 U/L (0-33); Albumin Level 3.7 g/dL (3.5-5.2); Alkaline Phosphatase 102 U/L (35-105); Anion Gap 16.7 (5-19); Aspartate Amino Transferase 14 U/L (0-32); Blood Urea Nitrogen 27 mg/dL (6-20); Calcium 8.9 mg/dL (8.5-10.5); Carbon Dioxide 24 mmol/L (22-29); Chloride 103 mmol/L (98-107); Creatinine Clr Calc Pharmacy 80.1298; Globulin 2.7 g/dL (1.3-4.6); Glomerular Filtration Rate 66.5 mL/min (90-130); Glucose 174 mg/dL (65-115); Osmolality Calculated 299 mOsm/kg (285-295); Potassium 3.7 mmol/L (3.5-5.1); Sodium 140 mmol/L (136-145); Total Bilirubin 0.2 mg/dL (0.15-1.2); Total Protein 6.4 g/dL (6.6-8.7)
[2024-05-28 06:27] LABS: NT Pro B Type Natriuretic Pept 446 pg/mL (0-125)
[2024-05-28] MEDS: azithromycin 250 mg Tablet 500 MG PO (08:27)
[2024-05-28] MEDS: lisinopril 20 mg Tablet PO (08:27)
[2024-05-28] MEDS: citalopram 20 mg Tablet 40 MG PO (08:27)
[2024-05-28] MEDS: BuSPIRONE 10 mg Tablet PO ×2 (08:27→16:51)
[2024-05-28] MEDS: fluticasone nasal spray 16gm Btl 1 SPRAY NASAL ×2 (08:28→16:51)
[2024-05-28] MEDS: buPROPion XL (24 HR) 300 mg Tablet PO (08:34)
[2024-05-28] MEDS: budesonide 0.5 mg/2 mL Neb INHALATION ×2 (08:38→20:08)
[2024-05-28] MEDS: benzonatate 100 mg Capsule 200 MG PO ×2 (09:14→19:02)
--- NOTE | 2024-05-28 12:28 | USCV_ITS ---
Yen Harding Age: 49 Gender: F : 1975 Exam Date: 05/28/2024 14:12 Ordering Phys: Tavo Negrete MD Technologist: Exam Location: [facility] – [place], [place] Indication: chf BP: 134 / 75 HR: 96 Rhythm: Sinus Technical Quality: Adequate MEASUREMENTS (Male / Female) Normal Values 2D ECHO LV Diastolic Diameter PLAX 4.0 cm 4.2 - 5.9 / 3.9 - 5.3 cm IVS Diastolic Thickness 1.2 cm 0.6 - 1.0 / 0.6 - 0.9 cm IVS Systolic Thickness 1.6 cm LVPW Diastolic Thickness 0.9 cm 0.6 - 1.0 / 0.6 - 0.9 cm LVPW Systolic Thickness 1.9 cm LVOT Diameter 2.0 cm LV Ejection Fraction 2D Teich 67.3 % LV Ejection Fraction MOD 4C 69.2 % LV Ejection Fraction MOD 2C 70.7 % LV Ejection Fraction 2C AL 71.2 % LA Diameter 2.7 cm RA Systolic Volume 4C AL 59.6 ml RA Systolic Volume 4C MOD 57.3 ml Aorta at Sinotubular Diameter 2.7 cm IVC Diameter 1.4 cm M-MODE LA Ao Ratio MM 1.2 AV Cusp Separation MM 2.2 cm DOPPLER AV Peak Velocity 145.0 cm/s LVOT Peak Velocity 127.0 cm/s AV Area Cont Eq vti 3.2 cm squared AV Area Cont Eq pk 2.8 cm squared MV Area PHT 7.9 cm squared TV Peak Velocity 124.0 cm/s TR Peak Velocity 141.0 cm/s TR Peak Gradient 8.0 mmHg TV Peak E Velocity 98.0 cm/s Right Atrial Pressure 3.0 mmHg Pulmonary Artery Systolic Pressu 11.0 mmHg PV Peak Velocity 101.0 cm/s FINDINGS Left Ventricle Normal left ventricular size, systolic function and wall thickness, with no regional wall motion abnormalities. Left ventricular ejection fraction is estimated at 60 %. Normal left ventricular filling pressure. Right Ventricle The right ventricle is normal in size and function. Right Atrium The right atrium is normal in size. Left Atrium The left atrium is normal in size. Mitral Valve Structurally normal mitral valve. No mitral valve stenosis. Mild mitral valve regurgitation. Aortic Valve Moderate aortic valve calcification. Aortic valve sclerosis without stenosis, trace regurgitation. Tricuspid Valve Structurally normal tricuspid valve without significant stenosis or regurgitation. Pulmonary artery systolic pressure is normal. Pulmonic Valve Structurally normal pulmonic valve without significant stenosis. There is no pulmonic regurgitation. Pericardium Normal pericardium without effusion. Aorta Normal ascending aorta dimension. IVC The inferior vena cava appears normal. CONCLUSIONS Normal left ventricular size, systolic function and wall thickness, with no regional wall motion abnormalities. Left ventricular ejection fraction is estimated at 60 %. Normal left ventricular filling pressure. Structurally normal mitral valve. No mitral valve stenosis. Mild mitral valve regurgitation. Moderate aortic valve calcification. Aortic valve sclerosis without stenosis, trace regurgitation. There is no pericardial effusion. Right atrial pressure is around 5 mm of mercury. Oswaldo Mendez MD (Electronically Signed) Final Date: 28 May 2024 21:32 S
[2024-05-28] MEDS: chlorthalidone 25 mg Tablet 12.5 MG PO (13:43)
--- NOTE | 2024-05-28 14:02 | P.PN_ITS ---
Subjective 2 Subjective: Patient was seen this morning, she continues to have wheezing, does have a cough, no fevers, no chills, Vitals/I&O/Wt Last Vital Signs Temp 98.3 F 05/28/24 11:30 Pulse 100 05/28/24 11:53 Resp 18 05/28/24 11:43 BP 162/104 05/28/24 11:30 Pulse Ox 95 05/28/24 11:43 O2 Del Method Nasal Cannula 05/28/24 11:43 O2 Flow Rate 2 05/28/24 11:43 05/27/24 05/28/24 05/28/24 22:59 06:59 14:59 Intake Total 360 / 1080 236 / 236 Balance 360 / 1080 236 / 236 Weight last 48 hrs Weight 89.222 kg Weight 90.22 kg Physical Exam 2 Const: COMMON NORMALS: no acute distress and patient oriented x3 Resp: COMMON NORMALS: normal respiratory effort, No retractions and No use of accessory muscles AUSCULTATION: wheezes Cardio: COMMON NORMALS: regular rate, regular rhythm, S1 normal heart sound present and S2 normal heart sound present RATE: regular rate RHYTHM: r egular rhythm HEART SOUNDS: S1 normal heart sound present and S2 normal heart sound present GI: COMMON NORMALS: Normal to inspection, nondistended, normoactive bowel sounds present and non-tender Extremity: COMMON NORMALS: no pedal edema Neuro: COMMON NORMALS: patient oriented x3 Psych: COMMON NORMALS: mental status grossly normal Data 05/28/24 04:29 05/28/24 04:29 A&P Assessment and plan (1) Acute hypoxemic respiratory failure: (2) Community acquired pneumonia: (3) Methamphetamine use disorder, mild: Patient is counseled to discontinue methamphetamines. (4) Surgical menopause, symptomatic: (5) Depression: (6) Hypothyroidism: Patient has been out of levothyroxine 2 weeks. I reinstated that today (7) Hypertension: Hold HCTZ resume lisinopril monitor blood pressure (8) Asthma exacerbation: Plan Acute hypoxic respiratory failure -Secondary to pneumonia -Secondary to asthma exacerbation -CTA chest CT/CT angio chest PE protcl [id number] IMPRESSION: 1. No acute PE. 2. Bilateral ground-glass opacities as described. Commonly reported imaging features of COVID-19 pneumonia are present. Other processes such as influenza pneumonia and organizing pneumonia, as can be seen with drug toxicity and connective tissue disease, can cause a similar imaging pattern. (Reference: Naveen) additionally, given history of hemoptysis, interval imaging follow-up exam should also be considered. 3. Probable small hiatal hernia and mild hepatic steatosis. Plan -Monitor respiratory status closely -DuoNeb -Budesonide -Continue Rocephin -Continue azithromycin -solumedrol 40 mg IV push every 8 hours -Sputum cultures -Tessalon Cristal for cough -Full code -Lovenox for DVT prophylaxis Will order echo, continue IV steroids, IV antibiotics Attestations 2 Medical Necessity Statement*: Patient requires hospitalization for pneumonia, asthma exacerbation, with active wheezing, will do cardiac echocardiogram given complaints of lower extremity edema Diagnoses Acute hypoxemic respiratory failure J96.01 Community acquired pneumonia J18.9 Methamphetamine use disorder, mild F15.10 Surgical menopause, symptomatic E89.41 Depression F32.A Hypothyroidism E03.9 Hypertension I10 Asthma exacerbation J45.901
[2024-05-28] MEDS: cloNIDine 0.1 mg Tablet PO (16:51)
[2024-05-28] MEDS: LORazepam 0.5 mg Tablet PO (16:54)
[2024-05-29] VITALS (19 sets, daily range): BP systolic 148–171; BP diastolic 90–120; PULSE 84–106; RESP 16–20; TEMP 36.4–37.3; O2SAT 93–99
[2024-05-29] MEDS: LORazepam 0.5 mg Tablet PO ×2 (01:57→22:32)
[2024-05-29] MEDS: enoxaparin 40 mg/0.4 mL Syringe SUBCUT (01:57)
[2024-05-29] MEDS: guaiFENesin 600 mg Tablet PO (01:57)
[2024-05-29] MEDS: methylPREDNISolone sod succ 40 mg/mL INJ IVP (01:57)
[2024-05-29 03:54] LABS: C.Diff PCR (Lab) NEGATIVE (Negative)
[2024-05-29] MEDS: benzonatate 100 mg Capsule 200 MG PO ×3 (04:53→15:29)
[2024-05-29] MEDS: levothyroxine 75 mcg Tablet PO (04:59)
[2024-05-29 05:25] LABS: Basophils % 0.2 %; Hematocrit 39.2 % (36-47); Lymphocytes # 0.8 10^3/uL (0.8-4.8); Lymphocytes % 4.1 %; Mean Corpuscular HGB Conc 31.1 g/dL (30-55); Mean Corpuscular Volume 93.1 fl (85-98); Mean Platelet Volume 10.8 fL (7.4-10.4); Monocytes # 1.1 10^3/uL (0.2-0.9); Monocytes % 5.8 %; Neutrophils % 87.8 %; Nucleated Red Blood Cells % 0 %; Platelet Count 312 10^3/cmm (157-399); Red Blood Count 4.21 10^6/uL (3.85-5.65); Red Cell Distribution Width 14.5 % (12.1-15.1)
[2024-05-29 05:48] LABS: Alanine Aminotransferase 11 U/L (0-33); Albumin Level 3.6 g/dL (3.5-5.2); Alkaline Phosphatase 90 U/L (35-105); Blood Urea Nitrogen 22 mg/dL (6-20); Calcium 8.9 mg/dL (8.5-10.5); Carbon Dioxide 26 mmol/L (22-29); Chloride 100 mmol/L (98-107); Creatinine Clr Calc Pharmacy 90.4871; Globulin 2.2 g/dL (1.3-4.6); Glomerular Filtration Rate 76.2 mL/min (90-130); Glucose 148 mg/dL (65-115); Osmolality Calculated 290 mOsm/kg (285-295); Sodium 137 mmol/L (136-145); Total Bilirubin 0.2 mg/dL (0.15-1.2); Total Protein 5.8 g/dL (6.6-8.7)
[2024-05-29 05:50] LABS: Anion Gap 15.4 (5-19); Aspartate Amino Transferase 17 U/L (0-32); Potassium 4.4 mmol/L (3.5-5.1)
[2024-05-29 05:53] LABS: NT Pro B Type Natriuretic Pept 434 pg/mL (0-125)
[2024-05-29] MEDS: azithromycin 250 mg Tablet 500 MG PO (08:11)
[2024-05-29] MEDS: BuSPIRONE 10 mg Tablet PO ×2 (08:12→17:21)
[2024-05-29] MEDS: buPROPion XL (24 HR) 300 mg Tablet PO (08:12)
[2024-05-29] MEDS: chlorthalidone 25 mg Tablet 12.5 MG PO ×2 (08:13→09:50)
[2024-05-29] MEDS: cloNIDine 0.1 mg Tablet PO ×2 (08:15→17:21)
[2024-05-29] MEDS: citalopram 20 mg Tablet 40 MG PO (08:15)
[2024-05-29] MEDS: fluticasone nasal spray 16gm Btl 1 SPRAY NASAL ×2 (08:16→17:21)
[2024-05-29] MEDS: lisinopril 20 mg Tablet PO ×2 (08:16→17:21)
[2024-05-29] MEDS: budesonide 0.5 mg/2 mL Neb INHALATION ×2 (08:59→20:39)
[2024-05-29] MEDS: ipratropium-albuterol 3 mL Neb INHALATION ×5 (09:00→23:51)
[2024-05-29 11:28] LABS: Glucose Point of Care 167 mg/dL (70-110)
--- NOTE | 2024-05-29 15:59 | P.PN_ITS ---
Subjective 2 Subjective: Patient was seen this morning, she feels better but continues to have diffuse wheezing, has a nonproductive cough, no fevers, no chills Vitals/I&O/Wt Last Vital Signs Temp 97.5 F L 05/29/24 15:42 Pulse 90 05/29/24 15:42 Resp 19 H 05/29/24 15:42 BP 153/104 05/29/24 15:42 Pulse Ox 93 05/29/24 15:42 O2 Del Method Nasal Cannula 05/29/24 15:42 O2 Flow Rate 1 05/29/24 15:17 05/29/24 05/29/24 05/29/24 06:59 14:59 22:59 Intake Total 1200 / 1200 Balance 1200 / 1200 Weight last 48 hrs Weight 89.857 kg Weight 89.222 kg Physical Exam 2 Const: COMMON NORMALS: no acute distress and patient oriented x3 Resp: COMMON NORMALS: normal respiratory effort, No retractions and No use of accessory muscles AUSCULTATION: crackles and wheezes Cardio: COMMON NORMALS: regular rate, regular rhythm, S1 normal heart sound present and S2 normal heart sound present RATE: regular rate RHYTHM: r egular rhythm HEART SOUNDS: S1 normal heart sound present and S2 normal heart sound present GI: COMMON NORMALS: Normal to inspection, nondistended, normoactive bowel sounds present and non-tender Extremity: COMMON NORMALS: no pedal edema Neuro: COMMON NORMALS: patient oriented x3 Psych: COMMON NORMALS: mental status grossly normal Data 05/29/24 04:38 05/29/24 04:38 Micro: Microbiology 05/29/24 00:30 Gram Stain - Final Sputum - Expectorated Sputum Sputum Culture - Preliminary A&P Assessment and plan (1) Acute hypoxemic respiratory failure: (2) Community acquired pneumonia: (3) Methamphetamine use disorder, mild: Patient is counseled to discontinue methamphetamines. (4) Surgical menopause, symptomatic: (5) Depression: (6) Hypothyroidism: Patient has been out of levothyroxine 2 weeks. I reinstated that today (7) Hypertension: Hold HCTZ resume lisinopril monitor blood pressure (8) Asthma exacerbation: Plan Acute hypoxic respiratory failure -Secondary to pneumonia -Secondary to asthma exacerbation -CTA chest CT/CT angio chest PE protcl [id number] IMPRESSION: 1. No acute PE. 2. Bilateral ground-glass opacities as described. Commonly reported imaging features of COVID-19 pneumonia are present. Other processes such as influenza pneumonia and organizing pneumonia, as can be seen with drug toxicity and connective tissue disease, can cause a similar imaging pattern. (Reference: Naveen) additionally, given history of hemoptysis, interval imaging follow-up exam should also be considered. 3. Probable small hiatal hernia and mild hepatic steatosis. Plan -Monitor respiratory status closely -DuoNeb -Budesonide -Continue Rocephin -Continue azithromycin -De-escalate to prednisone 40 mg daily -Sputum cultures -Tessalon Perles for cough -Full code -Lovenox for DVT prophylaxis Hypertension ? Add clonidine 0.1 twice daily # Chlorthalidone 25 mg daily # Lisinopril 20 twice daily Attestations 2 Medical Necessity Statement*: Patient requires hospitalization for acute hypoxic respiratory failure sec to pneumonia, asthma, with persistent wheezing, requiring inpatient monitoring Diagnoses Acute hypoxemic respiratory failure J96.01 Community acquired pneumonia J18.9 Methamphetamine use disorder, mild F15.10 Surgical menopause, symptomatic E89.41 Depression F32.A Hypothyroidism E03.9 Hypertension I10 Asthma exacerbation J45.901
[2024-05-29 16:47] LABS: Estmated Average Glucose 123; Hemoglobin A1C 5.9 % (4.0-6.0)
[2024-05-30] VITALS (14 sets, daily range): BP systolic 125–150; BP diastolic 77–92; PULSE 81–102; RESP 16–22; TEMP 36.4–36.8; O2SAT 90–98
[2024-05-30] MEDS: cefTRIAXone 1,000 mg SDV 1000 MG IVP (01:00)
[2024-05-30] MEDS: enoxaparin 40 mg/0.4 mL Syringe SUBCUT (01:01)
[2024-05-30] MEDS: benzonatate 100 mg Capsule 200 MG PO ×2 (02:22→21:01)
[2024-05-30] MEDS: guaiFENesin 600 mg Tablet PO ×2 (02:22→13:56)
[2024-05-30] MEDS: ipratropium-albuterol 3 mL Neb INHALATION ×5 (03:08→21:09)
[2024-05-30] MEDS: loperamide 2 mg Capsule PO ×3 (04:02→21:01)
[2024-05-30] MEDS: levothyroxine 75 mcg Tablet PO (05:06)
[2024-05-30 05:37] LABS: Basophils # 0.1 10^3/uL (0.0-0.1); Basophils % 0.4 %; Eosinophils # 0.3 10^3/uL (0.0-0.8); Eosinophils % 2.2 %; Hematocrit 40.7 % (36-47); Lymphocytes # 3.2 10^3/uL (0.8-4.8); Lymphocytes % 23.4 %; Mean Corpuscular HGB Conc 31.4 g/dL (30-55); Mean Corpuscular Hemoglobin 29.1 pg (27-33); Mean Corpuscular Volume 92.5 fl (85-98); Mean Platelet Volume 10.4 fL (7.4-10.4); Monocytes # 1.4 10^3/uL (0.2-0.9); Monocytes % 9.9 %; Neutrophils # 8.33 10^3/uL (1.8-7.7); Neutrophils % 61.3 %; Nucleated Red Blood Cells % 0 %; Platelet Count 326 10^3/cmm (157-399); Red Cell Distribution Width 14.2 % (12.1-15.1); White Blood Count 13.61 10^3/uL (3.29-11.43)
[2024-05-30 06:09] LABS: NT Pro B Type Natriuretic Pept 139 pg/mL (0-125); Procalcitonin 0.05 ng/mL (0-0.5)
[2024-05-30 06:20] LABS: Alanine Aminotransferase 9 U/L (0-33); Albumin Level 3.5 g/dL (3.5-5.2); Alkaline Phosphatase 88 U/L (35-105); Anion Gap 16.4 (5-19); Aspartate Amino Transferase 14 U/L (0-32); Blood Urea Nitrogen 21 mg/dL (6-20); C Reactive Protein 5.9 mg/L (0.0-4.9); Calcium 8.4 mg/dL (8.5-10.5); Carbon Dioxide 25 mmol/L (22-29); Chloride 98 mmol/L (98-107); Creatinine Clr Calc Pharmacy 79.3282; Globulin 2.5 g/dL (1.3-4.6); Glomerular Filtration Rate 66.5 mL/min (90-130); Glucose 129 mg/dL (65-115); Osmolality Calculated 287 mOsm/kg (285-295); Potassium 3.4 mmol/L (3.5-5.1); Sodium 136 mmol/L (136-145); Total Bilirubin 0.2 mg/dL (0.15-1.2)
--- NOTE | 2024-05-30 07:00 | XR_ITS ---
WS: [id number] XR chest 1V portable [id number] REASON FOR EXAM: sob FINDINGS: Compared to the examination of 05/25/2024, the interstitial lung opacities in both lower lung rehman a re undergoing resolution. Some residual abnormality remains. There are no new findings compared to the previous examination. XR/XR chest 1V portable [id number] IMPRESSION: Improving abnormal chest with no new findings.
[2024-05-30] MEDS: budesonide 0.5 mg/2 mL Neb INHALATION ×2 (07:45→21:09)
[2024-05-30] MEDS: citalopram 20 mg Tablet 40 MG PO (09:00)
[2024-05-30] MEDS: BuSPIRONE 10 mg Tablet PO ×2 (09:00→16:57)
[2024-05-30] MEDS: buPROPion XL (24 HR) 300 mg Tablet PO (09:00)
[2024-05-30] MEDS: azithromycin 250 mg Tablet 500 MG PO (09:00)
[2024-05-30] MEDS: cloNIDine 0.1 mg Tablet PO ×2 (09:00→16:58)
[2024-05-30] MEDS: potassium chloride ER 20 mEq Tablet 40 MEQ PO (09:00)
[2024-05-30] MEDS: predniSONE 20 mg Tablet 40 MG PO (09:01)
[2024-05-30] MEDS: lisinopril 20 mg Tablet PO ×2 (09:01→16:57)
[2024-05-30] MEDS: chlorthalidone 25 mg Tablet PO (09:01)
--- NOTE | 2024-05-30 15:34 | P.PN_ITS ---
Subjective 2 Subjective: Patient was seen this morning, she reports persistent wheezing, Vitals/I&O/Wt Last Vital Signs Temp 97.7 F 05/30/24 11:29 Pulse 89 05/30/24 15:13 Resp 16 05/30/24 15:13 BP 133/86 05/30/24 11:29 Pulse Ox 90 05/30/24 15:13 O2 Del Method Room Air 05/30/24 15:13 O2 Flow Rate 1 05/30/24 11:27 05/30/24 05/30/24 05/30/24 06:59 14:59 22:59 Intake Total 1160 / 1160 Balance 1160 / 1160 Weight last 48 hrs Weight 87.543 kg Weight 89.857 kg Physical Exam 2 Const: COMMON NORMALS: no acute distress and patient oriented x3 Resp: COMMON NORMALS: normal respiratory effort, No retractions and No use of accessory muscles AUSCULTATION: wheezes Cardio: COMMON NORMALS: regular rate, regular rhythm, S1 normal heart sound present and S2 normal heart sound present RATE: regular rate RHYTHM: r egular rhythm HEART SOUNDS: S1 normal heart sound present and S2 normal heart sound present GI: COMMON NORMALS: Normal to inspection, nondistended, normoactive bowel sounds present and non-tender Extremity: COMMON NORMALS: no pedal edema Neuro: COMMON NORMALS: patient oriented x3 Psych: COMMON NORMALS: mental status grossly normal Data 05/30/24 04:52 05/30/24 04:52 Micro: Microbiology 05/29/24 00:30 Gram Stain - Final Sputum - Expectorated Sputum Sputum Culture - Final A&P Assessment and plan (1) Acute hypoxemic respiratory failure: (2) Community acquired pneumonia: (3) Methamphetamine use disorder, mild: Patient is counseled to discontinue methamphetamines. (4) Surgical menopause, symptomatic: (5) Depression: (6) Hypothyroidism: Patient has been out of levothyroxine 2 weeks. I reinstated that today (7) Hypertension: Hold HCTZ resume lisinopril monitor blood pressure (8) Asthma exacerbation: Plan Acute hypoxic respiratory failure -Secondary to pneumonia -Secondary to asthma exacerbation -CTA chest CT/CT angio chest PE protcl [id number] IMPRESSION: 1. No acute PE. 2. Bilateral ground-glass opacities as described. Commonly reported imaging features of COVID-19 pneumonia are present. Other processes such as influenza pneumonia and organizing pneumonia, as can be seen with drug toxicity and connective tissue disease, can cause a similar imaging pattern. (Reference: Naveen) additionally, given history of hemoptysis, interval imaging follow-up exam should also be considered. 3. Probable small hiatal hernia and mild hepatic steatosis. Plan -Monitor respiratory status closely -DuoNeb -Budesonide -Continue Rocephin -Continue azithromycin -De-escalate to prednisone 40 mg daily -Sputum cultures -Tessalon Cristal for cough -Full code -Lovenox for DVT prophylaxis Hypertension ? Add clonidine 0.1 twice daily # Chlorthalidone 25 mg daily # Lisinopril 20 twice daily Patient requires hospitalization for persistent wheezing, asthma exacerbation, pneumonia current IV antibiotics Attestations 2 Medical Necessity Statement*: Patient requires hospitalization for asthma exacerbation, pneumonia Diagnoses Acute hypoxemic respiratory failure J96.01 Community acquired pneumonia J18.9 Methamphetamine use disorder, mild F15.10 Surgical menopause, symptomatic E89.41 Depression F32.A Hypothyroidism E03.9 Hypertension I10 Asthma exacerbation J45.901
[2024-05-30] MEDS: fluticasone nasal spray 16gm Btl 1 SPRAY NASAL (16:57)
[2024-05-30] MEDS: LORazepam 0.5 mg Tablet PO (21:01)
[2024-05-31] VITALS (12 sets, daily range): BP systolic 118–143; BP diastolic 77–98; PULSE 79–102; RESP 16–18; TEMP 36.5–36.8; O2SAT 91–95
[2024-05-31] MEDS: ipratropium-albuterol 3 mL Neb INHALATION ×3 (00:47→12:08)
[2024-05-31] MEDS: enoxaparin 40 mg/0.4 mL Syringe SUBCUT (00:48)
[2024-05-31] MEDS: benzonatate 100 mg Capsule 200 MG PO (02:07)
[2024-05-31] MEDS: loperamide 2 mg Capsule PO (03:12)
[2024-05-31 04:57] LABS: Basophils # 0.1 10^3/uL (0.0-0.1); Basophils % 0.5 %; Eosinophils # 0.4 10^3/uL (0.0-0.8); Eosinophils % 2.4 %; Lymphocytes # 3.5 10^3/uL (0.8-4.8); Lymphocytes % 20.6 %; Mean Corpuscular HGB Conc 31.9 g/dL (30-55); Mean Corpuscular Hemoglobin 28.8 pg (27-33); Mean Corpuscular Volume 90.5 fl (85-98); Monocytes # 1.4 10^3/uL (0.2-0.9); Monocytes % 8.6 %; Neutrophils # 10.69 10^3/uL (1.8-7.7); Nucleated Red Blood Cells % 0 %; Platelet Count 358 10^3/cmm (157-399); Red Blood Count 4.75 10^6/uL (3.85-5.65); Red Cell Distribution Width 14.1 % (12.1-15.1); White Blood Count 16.71 10^3/uL (3.29-11.43)
[2024-05-31] MEDS: levothyroxine 75 mcg Tablet PO (05:10)
[2024-05-31 05:17] LABS: Anion Gap 13.8 (5-19); Blood Urea Nitrogen 27 mg/dL (6-20); Carbon Dioxide 27 mmol/L (22-29); Chloride 99 mmol/L (98-107); Creatinine Clr Calc Pharmacy 64.9049; Glomerular Filtration Rate 52.8 mL/min (90-130); Glucose 133 mg/dL (65-115); Osmolality Calculated 289 mOsm/kg (285-295); Potassium 3.8 mmol/L (3.5-5.1); Sodium 136 mmol/L (136-145)
[2024-05-31 05:20] LABS: C Reactive Protein 5.2 mg/L (0.0-4.9)
[2024-05-31 05:22] LABS: Procalcitonin 0.06 ng/mL (0-0.5)
--- NOTE | 2024-05-31 07:34 | XR_ITS ---
WS: [id number] XR chest 1V portable [id number] REASON FOR EXAM: increase cough FINDINGS: Compared to the examination of the previous day, the reticular interstitial lung opacities in the low er lung rehman, most notably the right have partially resolved. Residual abnormality remains. No other interval change or new finding. XR/XR chest 1V portable [id number] IMPRESSION: Improvement in lower lung field lung opacities. No new findings.
[2024-05-31] MEDS: budesonide 0.5 mg/2 mL Neb INHALATION (07:59)
[2024-05-31] MEDS: acetaminophen 325 mg Tablet 650 MG PO (09:34)
[2024-05-31] MEDS: predniSONE 20 mg Tablet 40 MG PO (09:35)
[2024-05-31] MEDS: cloNIDine 0.1 mg Tablet PO (09:35)
[2024-05-31] MEDS: chlorthalidone 25 mg Tablet PO (09:35)
[2024-05-31] MEDS: azithromycin 250 mg Tablet 500 MG PO (09:35)
[2024-05-31] MEDS: lisinopril 20 mg Tablet PO (09:35)
[2024-05-31] MEDS: buPROPion XL (24 HR) 300 mg Tablet PO (09:35)
[2024-05-31] MEDS: potassium chloride ER 20 mEq Tablet 40 MEQ PO (09:36)
[2024-05-31] MEDS: citalopram 20 mg Tablet 40 MG PO (09:37)
[2024-05-31] MEDS: BuSPIRONE 10 mg Tablet PO (09:37)
[2024-05-31] MEDS: guaiFENesin 100 mg/5 mL UDC 10 mL 200 MG PO (09:37)
[2024-05-31] MEDS: fluticasone nasal spray 16gm Btl 1 SPRAY NASAL (09:38)
[2024-05-31 10:03] LABS: Adenovirus Not Detected (NOT DETECT); Chlamydia Pneumoniae Not Detected (NOT DETECT); Coronavirus 229E,HKU1,NL63,OC4 Not Detected (NOT DETECT); Human Metapneumovirus Not Detected (NOT DETECT); Human Rhinovirus/Enterovirus Detected (NOT DETECT); Influenza A Not Detected (NOT DETECT); Influenza A H1 Not Detected (NOT DETECT); Influenza A H1-2009 Not Detected (NOT DETECT); Influenza A H3 Not Detected (NOT DETECT); Influenza B Not Detected (NOT DETECT); Mycoplasma Pneumoniae Not Detected (NOT DETECT); Parainfluenza Virus Type 1 Not Detected (NOT DETECT); Parainfluenza Virus Type 2 Not Detected (NOT DETECT); Parainfluenza Virus Type 3 Not Detected (NOT DETECT); Parainfluenza Virus Type 4 Not Detected (NOT DETECT); Respiratory Syncytial Virus A Not Detected (NOT DETECT); Respiratory Syncytial Virus B Not Detected (NOT DETECT); SARS-COV-2 Not Detected (NOT DETECT)
--- NOTE | 2024-05-31 10:31 | PM.DCS ---
Discharge Providers Date of Admission: 05/26/24 00:35 Date of Discharge: May 31, 2024 Attending Provider at Admission: Jay Rodriguez MD Attending Provider at Discharge: Tavo Negrete MD Diagnoses at Discharge Discharge Diagnosis (1) Acute hypoxemic respiratory failure: Status: Acute (2) Community acquired pneumonia: Status: Acute (3) Methamphetamine use disorder, mild: Status: Acute (4) Surgical menopause, symptomatic: Status: Acute (5) Depression: Status: Acute (6) Hypothyroidism: Status: Acute (7) Hypertension: Status: Acute (8) Asthma exacerbation: Status: Acute Reason for Visit Reason for Visit: sob, coughing up blood Hospital Course Hospital Course This is a 49-year-old female, with a past medical history of hypothyroidism, depression, hypertension, possible asthma who presents [facility] for shortness of breath and wheezing Patient was admitted to [facility] for acute hypoxic respiratory failure secondary to asthma exacerbation, community-acquired pneumonia. Patient required prolonged hospitalization to control her wheezing and her shortness of breath required IV antibiotics, IV steroids, oxygen therapy. Overall patient clinically improved, discharge she does not have any wheezing, no shortness of breath complaint is on room air. Will be discharged on Levaquin for 5 days, a long steroid taper, albuterol, she has Symbicort at home, follow-up with primary care provider as outpatient, follow-up with pulmonary in 1 month For her hypertension, she was discharged on chlorthalidone 25 mg daily, lisinopril 20 mg twice daily, clonidine 0.1 mg twice daily For her depression, advised her to follow-up with primary care provider as outpatient, she can walk-in to [facility], continue her home medications, she needed refills of her medication so I provided them to her Advised to abstain from methamphetamine use Physical Exam Const: COMMON NORMALS: no acute distress and patient oriented x3 Resp: COMMON NORMALS: normal respiratory effort, No retractions, No use of accessory muscles and clear to auscultation bilaterally AUSCULTATION: clear to auscultation bilaterally Cardio: COMMON NORMALS: regular rate, regular rhythm, S1 normal heart sound present and S2 normal heart sound present RATE: regular rate RHYTHM: regular rhythm HEART SOUNDS: S1 normal heart sound present and S2 normal heart sound present GI: COMMON NORMALS: Normal to inspection, nondistended, normoactive bowel sounds present and non-tender Extremity: COMMON NORMALS: no pedal edema Neuro: COMMON NORMALS: patient oriented x3 Psych: COMMON NORMALS: mental status grossly normal Discharge Data Studies Completed and Pending Completed Studies During Hospitalization Category Date Time Status CT angio chest PE protcl [id number] Urgent Cat Scan 05/25/24 23:03 Completed XR chest 1V portable [id number] Routine Exams 05/30/24 07:00 Completed XR chest 1V portable [id number] Stat Exams 05/25/24 22:06 Completed XR chest 1V portable [id number] Urgent Exams 05/31/24 07:34 Completed CV. echo complete* [id number] Routine Ultrasound 05/28/24 12:28 Completed Pending at discharge Category Date Time Status Basic Metabolic Panel AM LABS Lab 06/01/24 04:00 Ordered Basic Metabolic Panel AM LABS Lab 06/02/24 04:00 Ordered C Reactive Protein AM LABS Lab 06/01/24 04:00 Ordered Complete Blood Count w/Auto AM LABS Lab 06/01/24 04:00 Ordered Complete Blood Count w/Auto AM LABS Lab 06/02/24 04:00 Ordered Procalcitonin AM LABS Lab 06/01/24 04:00 Ordered Respiratory Panel 2 Routine Lab 05/31/24 07:45 Received Radiology Impressions Chest CTA 05/25/24 23:03 IMPRESSION: 1. No acute PE. 2. Bilateral ground-glass opacities as described. Commonly reported imaging features of COVID-19 pneumonia are present. Other processes such as influenza pneumonia and organizing pneumonia, as can be seen with drug toxicity and connective tissue disease, can cause a similar imaging pattern. (Reference: Naveen) additionally, given history of hemoptysis, interval imaging follow-up exam should also be considered. 3. Probable small hiatal hernia and mild hepatic steatosis. REFERENCES: Naveen Vaughn et al., Radiological Society of [place] Expert Consensus Statement on Reporting Chest CT Findings Related to COVID-19. Endorsed by the Society of Thoracic Radiology, the [place] [employer], and RSNA. Published October 16, 2019. Chest X-Ray 05/31/24 07:34 IMPRESSION: Improvement in lower lung field lung opacities. No new findings. Laboratory Results WBC 16.71 10^3/uL (3.29-11.43) H 05/31/24 04:28 RBC 4.75 10^6/uL (3.85-5.65) 05/31/24 04: Hgb 13.70 g/dL (11.27-16.99) 05/31/24 04: Hct 43.0 % (36-47) 05/31/24 04: MCV 90.5 fl (85-98) 05/31/24 04: MCH 28.8 pg (27-33) 05/31/24 04: MCHC 31.9 g/dL (30-55) 05/31/24 04: RDW 14.1 % (12.1-15.1) 05/31/24 04: Plt Count 358 10^3/cmm (157-399) 05/31/24: MPV 10.0 fL (7.4-10.4) 05/31/24 04: Neut % (Auto) 64.0 % 05/31/24 04: Lymph % (Auto) 20.6 % 05/31/24 04: [place] % (Auto) 8.6 % 05/31/24 04: Eos % (Auto) 2.4 % 05/31/24 04: Baso % (Auto) 0.5 % 05/31/24 04: Neut # (Auto) 10.69 10^3/uL (1.8-7.7) H 05/31/24 04: Lymph # (Auto) 3.5 10^3/uL (0.8-4.8) 05/31/24 04: [place] # (Auto) 1.4 10^3/uL (0.2-0.9) H 05/31/24: Eos # (Auto) 0.4 10^3/uL (0.0-0.8) 05/31/24 04: Baso # (Auto) 0.1 10^3/uL (0.0-0.1) 05/31/24 04: Nucleated RBC % (auto) 0 % 05/31/24 04: Nucleated RBCs # 0.0 /100WBC 05/31/24 04: D-Dimer 1.08 ug/mLFEU (0-0.59) H 05/25/24 22:23 Specimen Type Arterial 05/25/24 22:19 Sample Site Brachial, right 05/25/24 22:19 ABG pH 7.45 (7.35-7.45) 05/25/24 22:19 ABG pCO2 34.0 mmHg (35-45) L 05/25/24 22:19 ABG pO2 58.6 mmHg (80.0-100.0) L 05/25/24 22:19 ABG PO2/FiO2 Ratio 279 05/25/24 22:19 ABG HCO3 23.5 mmol/L (22-26) 05/25/24 22:19 ABG Base Excess -0.1 mmol/L (-2.0-2.0) 05/25/24 22:19 Sean Test N/a 05/25/24 22:19 Hematocrit 38.5 % (37-47) 05/25/24 22:19 Hgb O2 Saturation 91.6 % (95-100) L 05/25/24 22:19 Carboxyhemoglobin 1.3 %THgb (0.4-20.1) 05/25/24 22:19 Methemoglobin 0.4 % (0.4-1.5) 05/25/24 22:19 Total Hemoglobin 12.6 g/dL (12-16) 05/25/24 22:19 O2 Delivery Device Room air 05/25/24 22:19 FiO2 21.0 % 05/25/24 22:19 Typesetting Supervisor ID Ed 05/25/24 22:19 Sodium 136 mmol/L (136-145) 05/31/24 04:28 Potassium 3.8 mmol/L (3.5-5.1) 05/31/24 04:28 Chloride 99 mmol/L (98-107) 05/31/24 04:28 Carbon Dioxide 27 mmol/L (22-29) 05/31/24 04:28 Anion Gap 13.8 (5-19) 05/31/24 04:28 BUN 27 mg/dL (6-20) H 05/31/24 04:28 Creatinine 1.1 mg/dL (0.5-0.9) H 05/31/24 04:28 GFR Calculation 52.8 mL/min (90-130) L 05/31/24 04:28 Glucose 133 mg/dL (65-115) H 05/31/24 04:28 POC Glucose 167 mg/dL (70-110) H 05/29/24 10:52 Estimat Average Glucose 123 05/29/24 04:38 Hemoglobin A1c 5.9 % (4.0-6.0) 05/29/24 04:38 Calculated Osmolality 289 mOsm/kg (285-295) 05/31/24 04:28 Lactic Acid 1.6 mmol/L (0.5-2.2) 05/25/24 22:23 Calcium 9.0 mg/dL (8.5-10.5) 05/31/24 04:28 Magnesium 2.0 mg/dL (1.7-2.3) 05/27/24 04:50 Total Bilirubin 0.2 mg/dL (0.15-1.2) 05/30/24 04:52 AST 14 U/L (0-32) 05/30/24 04:52 ALT 9 U/L (0-33) 05/30/24 04:52 Alkaline Phosphatase 88 U/L (35-105) 05/30/24 04:52 C-Reactive Protein 5.2 mg/L (0.0-4.9) H 05/31/24 04:28 NT-Pro-B Natriuret Pep 139 pg/mL (0-125) H 05/30/24 04:52 NT-Pro-B Natriuret Pep Cancelled 05/30/24 04:52 Total Protein 6.0 g/dL (6.6-8.7) L 05/30/24 04:52 Albumin 3.5 g/dL (3.5-5.2) 05/30/24 04:52 Globulin 2.5 g/dL (1.3-4.6) 05/30/24 04:52 Procalcitonin 0.06 ng/mL (0-0.5) 05/31/24 04:28 Urine Color Yellow (Yellow) 05/25/24 23:45 Urine Appearance Clear (CLEAR) 05/25/24 23:45 Urine pH 5.5 (5-7) 05/25/24 23:45 Ur Specific [place] 1.033 (1.005-1.030) H 05/25/24 23:45 Urine Protein 1+ (Negative) A 05/25/24 23:45 Urine Glucose (UA) Negative (Normal) 05/25/24 23:45 Urine Ketones 1+ (Negative) H 05/25/24 23:45 Urine Blood Negative (Negative) 05/25/24 23:45 Urine Nitrate Negative (Negative) 05/25/24 23:45 Urine Bilirubin Negative (Negative) 05/25/24 23:45 Urine Urobilinogen 1.0 mg/dL (Negative) 05/25/24 23:45 Ur Leukocyte Esterase Negative (Negative) 05/25/24 23:45 Urine RBC 0-2 /hpf (0-2) 05/25/24 23:45 Urine WBC 0-5 /hpf (0-5) 05/25/24 23:45 Ur Squamous Epith Cells 0-5 /hpf (0-5) 05/25/24 23:45 Amorphous Sediment Not Reportable 05/25/24 23:45 Urine Bacteria None seen /hpf (NONE) 05/25/24 23:45 Hyaline Casts 0.40 /lpf 05/25/24 23:45 Urine Opiates Screen Negative ng/mL (Negative) 05/25/24 23:45 Ur Barbiturates Screen Negative ng/mL (Negative) 05/25/24 23:45 Ur Phencyclidine Scrn Negative ng/mL (Negative) 05/25/24 23:45 Ur Amphetamines Screen Positive ng/mL (Negative) H 05/25/24 23:45 U Benzodiazepines Scrn Negative ng/mL (Negative) 05/25/24 23:45 Urine Cocaine Screen Negative ng/mL (Negative) 05/25/24 23:45 U Marijuana (THC) Screen Negative ng/mL (Negative) 05/25/24 23:45 C. difficile (PCR) Negative (Negative) 05/29/24 03:00 Coronavirus (PCR) Negative (Negative) 05/25/24 23:01 Hepatitis A IgM Ab Non-reactive (Nonreactive) 05/25/24 02:23 Hep Bs Antigen Non-reactive (Nonreactive) 05/25/24 02:23 Hep B Core IgM Ab Non-reactive (Nonreactive) 05/25/24 02:23 Hepatitis C Antibody Non-reactive (Nonreactive) 05/25/24 02:23 HIV 1&2 Ab & HIV 1 Ag Non-reactive (Non-Reactiv) 05/25/24 02:23 HIV 1&2 Antibody Non-reactive (Non-Reactiv) 05/25/24 02:23 Influenza A (PCR) Negative (Negative) 05/25/24 23:01 Influenza Type B (PCR) Negative (Negative) 05/25/24 23:01 RSV (PCR) Negative (Negative) 05/25/24 23:01 Vitals Last Vital Signs Temp 98.2 F 05/31/24 08:00 Pulse 95 05/31/24 08:01 Resp 16 05/31/24 08:00 BP 134/98 05/31/24 09:35 Pulse Ox 91 05/31/24 08:00 O2 Del Method Room Air 05/31/24 08:00 O2 Flow Rate 1 05/30/24 11:27 Discharge Plan Discharge Patient Disposition: Home Condition: Stable Prescriptions: New clonidine HCl 0.1 mg Tablet 0.1 mg PO BID 30 Days Qty: 60 0RF lisinopril 20 mg Tablet 20 mg PO BID 30 Days Qty: 60 0RF chlorthalidone 25 mg Tablet 25 mg PO DAILY 30 Days Qty: 30 0RF levothyroxine 75 mcg Tablet 75 mcg PO QAM 30 Days Qty: 30 0RF citalopram 20 mg Tablet 40 mg PO DAILY 30 Days Qty: 60 0RF buspirone 10 mg Tablet 10 mg PO BID 30 Days Qty: 60 0RF bupropion HCl 300 mg Tablet Extended Release 24 Hr 300 mg PO DAILY 30 Days Qty: 30 0RF levofloxacin 750 mg tablet 750 mg PO DAILY 5 Days Qty: 5 0RF prednisone 10 mg tablet See Rx Instructions .ROUTE .COMPLEX Qty: 53 0RF Rx Instructions: 4tabs(40mg) for 5 days, 3tabs(30mg) for 5 days, 2tabs(20mg) for 5 days, 1tab(10mg) for 5, 0.5mg(5mg) for 5 days Continued albuterol sulfate 2.5 mg /3 mL (0.083 %) solution for nebulization 2.5 mg inhalation Q6H Qty: 75 0RF Rx Instructions: Use every 4-6 hours as needed Changed albuterol sulfate 90 mcg/actuation HFA aerosol inhaler 1 puff inhalation Q6H PRN (Reason: shortness of breath or wheezing) 30 Days Qty: 8.5 0RF guaifenesin 600 mg tablet extended release 12hr 600 mg PO Q12H PRN (Reason: congestion) 7 Days Qty: 14 0RF Discharge Orders: Discharge Order (Routine); Ordered 05/31/24 Ordered By: Tavo Negrete Referrals: Cynthia Glvoer FNP [Nurse Practitioner] - 06/04/24 1:00 pm Leonard Martinez MD, MBBS, MPH [Referring] - 2 weeks Discharge Diet: Cardiac Discharge Activity: Resume usual activity Patient Instructions: Opioid Safety Activity Restrictions/Additional Instructions: - Please continue to hydrate well, -Please abstain from drug use -Please take steroids and antibiotics as prescribed -See primary care provider in the next few weeks Discharge Attestations Time Spent in Discharge Care*: greater than 30 min Quality Metrics Clinical Quality Measures [ No reported AMI, CVA or VTE this stay] Coding Level of Care Code 44675 Total time (in minutes) for Discharge: 45 Diagnoses Acute hypoxemic respiratory failure J96.01 Community acquired pneumonia J18.9 Methamphetamine use disorder, mild F15.10 Surgical menopause, symptomatic E89.41 Depression F32.A Hypothyroidism E03.9 Hypertension I10 Asthma exacerbation J45.901
== END 2024-05-31 15:00 | disposition home or self-care (01) | DRG 193 ==
LOC: ER 05-26 00:35 → MEDSURG 05-26 00:50
PROVIDERS: Internal Medicine; Admitting Provider Internal Medicine; Emergency Provider Emergency Medicine; Visit Provider Family Medicine
DX: J18.9 Pneumonia, unspecified organism (principal); J96.01 Acute respiratory failure with hypoxia; J45.901 Unspecified asthma with (acute) exacerbation; I47.10 Supraventricular tachycardia, unspecified; F32.A Depression, unspecified; T43.226A Underdosing of selective serotonin reuptake inhibitors, initial encounter; F15.90 Other stimulant use, unspecified, uncomplicated; E66.3 Overweight; R68.82 Decreased libido; E03.9 Hypothyroidism, unspecified; B97.10 Unspecified enterovirus as the cause of diseases classified elsewhere; Z68.34 Body mass index [BMI] 34.0-34.9, adult; Z86.16 Personal history of COVID-19; Z79.51 Long term (current) use of inhaled steroids; Z78.0 Asymptomatic menopausal state; Z11.52 Encounter for screening for COVID-19; Z90.710 Acquired absence of both cervix and uterus; Z91.128 Patient's intentional underdosing of medication regimen for other reason
CPT/HCPCS: 0241U; 36415; 36416; 36600; 71045; 71275; 80048; 80053; 80074; 80306; 81001; 82805; 82962; 83036; 83605; 83735; 83880; 84145; 85025; 85378; 86140; 87040; 87070; 87205; 87486; 87493; 87581; 87633; 87806; 93005; 93306; 94640; 94664; 96365; 96372; 96375; 99285; J0456; J0696; J1650; J1940; J2919; J7050; J7512; J7613; J7626; J7644; Q0144

== ENCOUNTER 2024-07-16 19:00 | Emergency (ER) | payer SELFPAY ==
[2024-07-16] VITALS (8 sets, daily range): BP systolic 129–154; BP diastolic 81–101; PULSE 89–107; RESP 18–32; TEMP 36.9; O2SAT 87–97
--- NOTE | 2024-07-16 19:03 | ECG_ITS ---
[facility] 2024[facility]16 Pat Name: Yen Harding Department: Room: Gender: Female Cw Operator: : 1975 Requested By: Martine Landin Order Number: [id number] Shaquille MD: Gonzales Monge M.D. Measurements Intervals [place] Rate: 106 P: 13 MN: 131 QRS: 48 QRSD: 78 T: 56 QT: 333 QTc: 444 Interpretive Statements SINUS TACHYCARDIA LOW QRS VOLTAGE IN PRECORDIAL LEADS [QRS DEFLECTION < 1.0 mV IN CHEST LEADS] poor R wave progression Compared to ECG 05/25/2024 22:05:27 Low QRS voltage now present Myocardial infarct finding now present Electronically Signed On 07-16-2024 21:44:39 BUZZSAW OPERATOR by Gonzales Monge M.D. [email or web address]
--- NOTE | 2024-07-16 19:03 | XRR_ITS ---
PROCEDURE INFORMATION: Exam: XR Chest Exam date and time: 07/16/2024 7:29 PM Age: 49 years old Clinical indication: Shortness of breath; Additional info: SOB TECHNIQUE: Imaging protocol: Radiologic exam of the chest. Views: 1 view. COMPARISON: CR XR chest 1V portable [id number] 05/31/2024 8:07 AM FINDINGS: Lungs: Patchy areas of infiltrate involve both lung bases. The upper lung rehman are clear. Pleural spaces: Unremarkable. No pleural effusion. No pneumothorax. Heart/Mediastinum: Unremarkable. No cardiomegaly. Bones/joints: Unremarkable. XR/XR chest 1V portable [id number] IMPRESSION: Bibasilar pneumonia
--- NOTE | 2024-07-16 19:25 | PC.NURSE ---
Patients spo2 sats on ra 80% post ambulation. Placed on 2lnc. Sat improvement to 94% on 2lnc less than 5mins.
[2024-07-16] MEDS: methylPREDNISolone sod succ 125 mg/2 mL INJ IVP (19:36)
--- NOTE | 2024-07-16 19:40 | W.ED.SOB ---
Documented by User: [email or web address] Lucia 07/16/24 21:06 HPI - SOB/Dyspnea General: Chief Complaint: Shortness of Breath/Dyspnea Stated Complaint: sob Time Seen by Provider: 07/16/24 19:15 Source: patient Mode of arrival: ambulatory Limitations: no limitations History of Present Illness: HPI Narrative: Patient is a 49-year-old female with past medical history of asthma who presents to the emergency department complaining of shortness of breath for the past 4 days. States it is specifically worsened over the past day, she has used numerous albuterol inhalers as well as nebulized breathing treatments. She arrives actively wheezing and 87% SpO2 on room air, she does not use oxygen at home and denies history of COPD. She also states that she has been coughing, states that in the past she has felt like this after hitting sick with an upper respiratory infection, and eventually was diagnosed with asthma exacerbations. She is stating this feels identical. She is denying any fever, chest pain, urinary symptoms, or other symptoms at this time. She does specifically note that her breathing is worse with movement or exertion of any kind, does not state that it is specifically positionally exacerbated other than she feels better with sitting up. She does state that it is worse with the eating. Patient states that she gets tired after breathing hard and when she wakes up she feels like she cannot catch her breath, and this is when she uses a breathing treatment. MD elicited complaint: shortness of breath and cough Pertinent past history: asthma Onset (ago): day(s) (4) Context: recent illness Timing: constant and progressively worsening Severity: severe Exacerbating factors: exertion and movement Relieving factors: rest Known history of: asthma Associated symptoms: Deny abdominal pain, chest pain, fever(s), lightheadedness, nausea, palpitations or vomiting Treatment prior to arrival: bronchodilator Related Data Previous Rx's Medication Instructions Recorded albuterol sulfate 2.5 mg/3 mL 2.5 mg (3 mL) inhalation Q6H #75 mL 05/31/24 (0.083 %) solution for nebulization albuterol sulfate 90 mcg/actuation 1 puff inhalation Q6H PRN 05/31/24 aerosol inhaler shortness of breath or wheezing 30 days #8.5 grams guaifenesin 600 mg tablet, 600 mg PO Q12H PRN congestion 7 05/31/24 extended release 12 hr days #14 tabs prednisone 10 mg tablet See Rx Instructions .Route 05/31/24 .COMPLEX #53 tabs doxycycline hyclate 100 mg tablet 100 mg PO BID 9 days #18 tabs 07/16/24 prednisone 20 mg tablet 60 mg (3 x 20 mg) PO ONCE 4 days 07/16/24 #12 tabs Allergies Allergy/AdvReac Type Severity Reaction Status Date / Time No Known Allergies Allergy Verified 07/16/24 19:14 Review of Systems General: Reports: 10 or more systems reviewed and unremarkable except in HPI and below Const: Denies: fever(s), chills or fatigue Eyes: Denies: change in vision ENMT: Denies: throat pain, ear or mastoid pain or nasal discharge Card: Denies: chest pain, palpitations, swelling of feet/ankles or lightheadedness Resp: Reports: dyspnea, productive cough and wheezing GI: Denies: abdominal pain, nausea, vomiting, diarrhea or constipation : Denies: flank pain, difficulty voiding, dysuria or urinary frequency Musc: Denies: neck pain, back pain or joint pain Skin/Breast: Denies: rash Neuro: Denies: headache(s), numbness in extremities or weakness in extremities PFSH ED PFSH: Medical History Asthma Hypertension Depression Social History Smoking and tobacco/nicotine status: never used tobacco/nicotine Physical Exam Const: COMMON NORMALS: no acute distress, patient oriented x3 and no limitations GENERAL APPEARANCE: cooperative, comfortable and well developed ORIENTATION/CONSCIOUSNESS: Yes awake, Yes oriented to person, Yes oriented to place and Yes oriented to time HENMT: COMMON NORMALS: normocephalic, atraumatic, hearing grossly normal bilaterally, external ears normal, EAC's normal and TM's normal bilaterally HEAD & SCALP: normocephalic and atraumatic EXTERNAL EAR: Yes external ears normal EXTERNAL AUDITORY CANAL: EAC's normal TYMPANIC MEMBRANE: TM's normal bilaterally THROAT: posterior oropharynx normal and tonsils normal OTHER: Dry oral mucosa Eye: COMMON NORMALS: Equal, round and reactive pupils present, EOMs intact bilaterally and conjunctivae normal CONJUNCTIVA: Yes conjunctivae normal PUPIL: Yes Equal, round and reactive pupils present Neck/C-Spine: COMMON NORMALS: full ROM, supple and no JVD Chest: COMMONS NORMALS: normal inspection of the chest Resp: COMMON NORMALS: No retractions EFFORT & INSPECTION: Yes respiratory distress, Yes Actively coughing, Yes uses accessory muscles and Yes audible wheezes AUSCULTATION: wheezes expiratory wheezes, inspiratory wheezes and throughout Cardio: COMMON NORMALS: no JVD, regular rate, regular rhythm, No clicks present (Cardio), No murmurs present (Cardio) and No rub (Cardio) RATE: regular rate RHYTHM: regular rhythm GI: COMMON NORMALS: Normal to inspection, nondistended, normoactive bowel sounds present, Soft to palpation and non-tender AUSCULTATION: Yes normoactive bowel sounds PALPATION: Yes Soft to palpation RECTAL EXAM: deferred Extremity: COMMON NORMALS: normal to inspection, full ROM and capillary refill normal Neuro: COMMON NORMALS: patient oriented x3, CN's II-XII intact bilaterally, moves all extremities, no focal motor deficits and no sensory deficits noted SENSORIUM/ORIENTATION: Yes oriented to person, Yes oriented to place and Yes oriented to time Psych: COMMON NORMALS: mental status grossly normal and Normal thought process present THOUGHT PROCESS: Normal thought process present Skin: COMMON NORMALS: no rashes or lesions noted GENERAL SKIN EXAM: no rashes or lesions noted Course Vital Signs: Vital signs: Vital Signs Temperature 98.4 F 07/16/24 21:19 Pulse Rate 101 H 07/16/24 21:19 Respiratory Rate 18 07/16/24 21:19 Blood Pressure 134/81 07/16/24 21:19 Pulse Oximetry 96 07/16/24 21:19 Oxygen Delivery Me thod Nasal Cannula 07/16/24 20:35 Oxygen Flow Rate 2 07/16/24 20:35 MDM - SOB/Dyspnea Medical Decision Making Patient has history of asthma presented to the emergency department complaining of shortness of breath for the past 4 days. In May she was here and admitted to the hospital after being diagnosed with COVID-pneumonia. She arrived 87% on room air, was placed on 2 L of oxygen. After 2 DuoNeb treatments and Solu-Medrol through IV, she was weaned off of oxygen and has maintained 94 to 96% and states that she is feeling much better. All of her lab work compared to prior, seems to be improved as her white count was unremarkable and metabolic panel essentially unchanged from prior labs. COVID and flu swab was negative. Chest x-ray did show evidence of a by basilar pneumonia for which we will begin treating with doxycycline. I did offer the patient admission for observation and to continue monitoring her oxygen, however is adamant that she wants to treat at home and does state that she will come back if her breathing worsens. She is stating that she feels much better now and is ready to go home. Will give her first doses here in the emergency department. Discussed case briefly with Dr. Sumner. Lab Data 07/16/24 19:23 07/16/24 19:23 Labs/Radiology: Radiology Impressions Chest X-Ray 07/16/24 19:03 IMPRESSION: Bibasilar pneumonia Laboratory Results WBC 11.59 10^3/uL (3.29-11.43) H 07/16/24 19:23 RBC 4.18 10^6/uL (3.85-5.65) 07/16/24 19:23 Hgb 12.30 g/dL (11.27-16.99) 07/16/24 19:23 Hct 38.5 % (36-47) 07/16/24 19:23 MCV 92.1 fl (85-98) 07/16/24 19:23 MCH 29.4 pg (27-33) 07/16/24 19:23 MCHC 31.9 g/dL (30-55) 07/16/24 19:23 RDW 13.8 % (12.1-15.1) 07/16/24 19:23 Plt Count 301 10^3/cmm (157-399) 07/16/24 19:23 MPV 10.0 fL (7.4-10.4) 07/16/24 19:23 Neut % (Auto) 73.2 % 07/16/24 19:23 Lymph % (Auto) 10.9 % 07/16/24 19:23 Linn % (Auto) 6.3 % 07/16/24 19:23 Eos % (Auto) 8.8 % 07/16/24 19:23 Baso % (Auto) 0.5 % 07/16/24 19:23 Neut # (Auto) 8.48 10^3/uL (1.8-7.7) H 07/16/24 19:23 Lymph # (Auto) 1.3 10^3/uL (0.8-4.8) 07/16/24 19:23 Linn # (Auto) 0.7 10^3/uL (0.2-0.9) 07/16/24 19:23 Eos # (Auto) 1.0 10^3/uL (0.0-0.8) H 07/16/24 19:23 Baso # (Auto) 0.1 10^3/uL (0.0-0.1) 07/16/24 19:23 Nucleated RBC % (auto) 0 % 07/16/24 19:23 Nucleated RBCs # 0.0 /100WBC 07/16/24 19:23 Sodium 134 mmol/L (136-145) L 07/16/24 19:23 Potassium 4.0 mmol/L (3.5-5.1) 07/16/24 19:23 Chloride 96 mmol/L (98-107) L 07/16/24 19:23 Carbon Dioxide 29 mmol/L (22-29) 07/16/24 19:23 Anion Gap 13.0 (5-19) 07/16/24 19:23 BUN 19 mg/dL (6-20) 07/16/24 19:23 Creatinine 0.9 mg/dL (0.5-0.9) 07/16/24 19:23 GFR Calculation 66.5 mL/min (90-130) L 07/16/24 19:23 Glucose 148 mg/dL (65-115) H 07/16/24 19:23 Calculated Osmolality 283 mOsm/kg (285-295) L 07/16/24 19:23 Calcium 9.8 mg/dL (8.5-10.5) 07/16/24 19:23 Total Bilirubin 0.4 mg/dL (0.15-1.2) 07/16/24 19:23 AST 19 U/L (0-32) 07/16/24 19:23 ALT 7 U/L (0-33) 07/16/24 19:23 Alkaline Phosphatase 108 U/L (35-105) H 07/16/24 19:23 NT-Pro-B Natriuret Pep 399 pg/mL (0-125) H 07/16/24 19:23 Total Protein 7.2 g/dL (6.6-8.7) 07/16/24 19:23 Albumin 3.9 g/dL (3.5-5.2) 07/16/24 19:23 Globulin 3.3 g/dL (1.3-4.6) 07/16/24 19:23 Coronavirus (PCR) Negative (Negative) 07/16/24 19:19 Influenza A (PCR) Negative (Negative) 07/16/24 19:19 Influenza Type B (PCR) Negative (Negative) 07/16/24 19:19 RSV (PCR) Negative (Negative) 07/16/24 19:19 All radiology interpretation(s) finalized by discharge EKG Data EKG 1: I personally reviewed and interpreted this EKG as follows: EKG Interpretation Date: 07/16/24 EKG interpretation time: 19:21 Prior EKG tracings: available for review Interpretation: 192: Sinus tachycardia. No significant change from prior EKG on 05/25 of this year. No STEMI. Discharge Plan Discharge Patient Disposition: Home Clinical Impression: Pneumonia Qualifiers: Pneumonia type: due to unspecified organism Laterality: bilateral Lung location: lower lobe of lung Qualified Code(s): J18.9 - Pneumonia, unspecified organism Acute asthma exacerbation Qualifiers: Asthma severity: unspecified severity Asthma persistence: unspecified Qualified Code(s): J45.901 - Unspecified asthma with (acute) exacerbation Condition: Stable Prescriptions: New prednisone 20 mg tablet 60 mg PO ONCE 4 Days Qty: 12 0RF doxycycline hyclate 100 mg tablet 100 mg PO BID 9 Days Qty: 18 0RF No Action albuterol sulfate 2.5 mg /3 mL (0.083 %) solution for nebulization 2.5 mg inhalation Q6H Qty: 75 0RF Rx Instructions: Use every 4-6 hours as needed albuterol sulfate 90 mcg/actuation HFA aerosol inhaler 1 puff inhalation Q6H PRN (Reason: shortness of breath or wheezing) 30 Days Qty: 8.5 0RF prednisone 10 mg tablet See Rx Instructions .ROUTE .COMPLEX Qty: 53 0RF Rx Instructions: 4tabs(40mg) for 5 days, 3tabs(30mg) for 5 days, 2tabs(20mg) for 5 days, 1tab(10mg) for 5, 0.5mg(5mg) for 5 days guaifenesin 600 mg tablet extended release 12hr 600 mg PO Q12H PRN (Reason: congestion) 7 Days Qty: 14 0RF Discharge Orders: Discharge ED (Routine); Ordered 07/16/24 Ordered By: Geronimo Woodall Patient Instructions: Pneumonia (ED) Activity Restrictions/Additional Instructions: Please take antibiotics and steroids as prescribed. Continue using your inhaler and nebulized albuterol treatments at home. Please note that if your breathing worsens or you develop any other new concerning symptoms, return to the emergency department as we discussed. See attached patient instructions for further education. Please follow-up with your primary care provider later this week as discussed. Coding Level of Care Code ED [employer] Book Writer for [employer]g Fwd Documented by User: Noel Sumner, 07/17/24 00:00 HPI - SOB/Dyspnea General: Chief Complaint: Shortness of Breath/Dyspnea Stated Complaint: sob Time Seen by Provider: 07/16/24 19:15 Related Data Previous Rx's Medication Instructions Recorded albuterol sulfate 2.5 mg/3 mL 2.5 mg (3 mL) inhalation Q6H #75 mL 05/31/24 (0.083 %) solution for nebulization albuterol sulfate 90 mcg/actuation 1 puff inhalation Q6H PRN 05/31/24 aerosol inhaler shortness of breath or wheezing 30 days #8.5 grams guaifenesin 600 mg tablet, 600 mg PO Q12H PRN congestion 7 05/31/24 extended release 12 hr days #14 tabs prednisone 10 mg tablet See Rx Instructions .Route 05/31/24 .COMPLEX #53 tabs doxycycline hyclate 100 mg tablet 100 mg PO BID 9 days #18 tabs 07/16/24 prednisone 20 mg tablet 60 mg (3 x 20 mg) PO ONCE 4 days 07/16/24 #12 tabs Allergies Allergy/AdvReac Type Severity Reaction Status Date / Time No Known Allergies Allergy Verified 07/16/24 19:14 [facility] ED [facility]: Medical History Asthma Hypertension Depression Social History Smoking and tobacco/nicotine status: never used tobacco/nicotine Course Vital Signs: Vital signs: Vital Signs Temperature 98.4 F 07/16/24 21:19 Pulse Rate 101 H 07/16/24 21:19 Respiratory Rate 18 07/16/24 21:19 Blood Pressure 134/81 07/16/24 21:19 Pulse Oximetry 96 07/16/24 21:19 Oxygen Delivery Me thod Nasal Cannula 07/16/24 20:35 Oxygen Flow Rate 2 07/16/24 20:35 MDM - SOB/Dyspnea Medical Decision Making Patient has history of asthma presented to the emergency department complaining of shortness of breath for the past 4 days. In May she was here and admitted to the hospital after being diagnosed with COVID-pneumonia. She arrived 87% on room air, was placed on 2 L of oxygen. After 2 DuoNeb treatments and Solu-Medrol through IV, she was weaned off of oxygen and has maintained 94 to 96% and states that she is feeling much better. All of her lab work compared to prior, seems to be improved as her white count was unremarkable and metabolic panel essentially unchanged from prior labs. COVID and flu swab was negative. Chest x-ray did show evidence of a by basilar pneumonia for which we will begin treating with doxycycline. I did offer the patient admission for observation and to continue monitoring her oxygen, however is adamant that she wants to treat at home and does state that she will come back if her breathing worsens. She is stating that she feels much better now and is ready to go home. Will give her first doses here in the emergency department. Discussed case briefly with Dr. Sumner. This patient was originally seen by Mr. Talisha PA-C.? I agree with his history, evaluation, and treatment. Lab Data 07/16/24 19:23 07/16/24 19:23 Labs/Radiology: Radiology Impressions Chest X-Ray 07/16/24 19:03 IMPRESSION: Bibasilar pneumonia Laboratory Results WBC 11.59 10^3/uL (3.29-11.43) H 07/16/24 19:23 RBC 4.18 10^6/uL (3.85-5.65) 07/16/24 19:23 Hgb 12.30 g/dL (11.27-16.99) 07/16/24 19:23 Hct 38.5 % (36-47) 07/16/24 19:23 MCV 92.1 fl (85-98) 07/16/24 19:23 MCH 29.4 pg (27-33) 07/16/24 19:23 MCHC 31.9 g/dL (30-55) 07/16/24 19:23 RDW 13.8 % (12.1-15.1) 07/16/24 19:23 Plt Count 301 10^3/cmm (157-399) 07/16/24 19:23 MPV 10.0 fL (7.4-10.4) 07/16/24 19:23 Neut % (Auto) 73.2 % 07/16/24 19:23 Lymph % (Auto) 10.9 % 07/16/24 19:23 Linn % (Auto) 6.3 % 07/16/24 19:23 Eos % (Auto) 8.8 % 07/16/24 19:23 Baso % (Auto) 0.5 % 07/16/24 19:23 Neut # (Auto) 8.48 10^3/uL (1.8-7.7) H 07/16/24 19:23 Lymph # (Auto) 1.3 10^3/uL (0.8-4.8) 07/16/24 19:23 Linn # (Auto) 0.7 10^3/uL (0.2-0.9) 07/16/24 19:23 Eos # (Auto) 1.0 10^3/uL (0.0-0.8) H 07/16/24 19:23 Baso # (Auto) 0.1 10^3/uL (0.0-0.1) 07/16/24 19:23 Nucleated RBC % (auto) 0 % 07/16/24 19:23 Nucleated RBCs # 0.0 /100WBC 07/16/24 19:23 Sodium 134 mmol/L (136-145) L 07/16/24 19:23 Potassium 4.0 mmol/L (3.5-5.1) 07/16/24 19:23 Chloride 96 mmol/L (98-107) L 07/16/24 19:23 Carbon Dioxide 29 mmol/L (22-29) 07/16/24 19:23 Anion Gap 13.0 (5-19) 07/16/24 19:23 BUN 19 mg/dL (6-20) 07/16/24 19:23 Creatinine 0.9 mg/dL (0.5-0.9) 07/16/24 19:23 GFR Calculation 66.5 mL/min (90-130) L 07/16/24 19:23 Glucose 148 mg/dL (65-115) H 07/16/24 19:23 Calculated Osmolality 283 mOsm/kg (285-295) L 07/16/24 19:23 Calcium 9.8 mg/dL (8.5-10.5) 07/16/24 19:23 Total Bilirubin 0.4 mg/dL (0.15-1.2) 07/16/24 19:23 AST 19 U/L (0-32) 07/16/24 19:23 ALT 7 U/L (0-33) 07/16/24 19:23 Alkaline Phosphatase 108 U/L (35-105) H 07/16/24 19:23 NT-Pro-B Natriuret Pep 399 pg/mL (0-125) H 07/16/24 19:23 Total Protein 7.2 g/dL (6.6-8.7) 07/16/24 19:23 Albumin 3.9 g/dL (3.5-5.2) 07/16/24 19:23 Globulin 3.3 g/dL (1.3-4.6) 07/16/24 19:23 Coronavirus (PCR) Negative (Negative) 07/16/24 19:19 Influenza A (PCR) Negative (Negative) 07/16/24 19:19 Influenza Type B (PCR) Negative (Negative) 07/16/24 19:19 RSV (PCR) Negative (Negative) 07/16/24 19:19 Discharge Plan Discharge Patient Disposition: Home Clinical Impression: Pneumonia Qualifiers: Pneumonia type: due to unspecified organism Laterality: bilateral Lung location: lower lobe of lung Qualified Code(s): J18.9 - Pneumonia, unspecified organism Acute asthma exacerbation Qualifiers: Asthma severity: unspecified severity Asthma persistence: unspecified Qualified Code(s): J45.901 - Unspecified asthma with (acute) exacerbation Condition: Stable Prescriptions: New prednisone 20 mg tablet 60 mg PO ONCE 4 Days Qty: 12 0RF doxycycline hyclate 100 mg tablet 100 mg PO BID 9 Days Qty: 18 0RF No Action albuterol sulfate 2.5 mg /3 mL (0.083 %) solution for nebulization 2.5 mg inhalation Q6H Qty: 75 0RF Rx Instructions: Use every 4-6 hours as needed albuterol sulfate 90 mcg/actuation HFA aerosol inhaler 1 puff inhalation Q6H PRN (Reason: shortness of breath or wheezing) 30 Days Qty: 8.5 0RF prednisone 10 mg tablet See Rx Instructions .ROUTE .COMPLEX Qty: 53 0RF Rx Instructions: 4tabs(40mg) for 5 days, 3tabs(30mg) for 5 days, 2tabs(20mg) for 5 days, 1tab(10mg) for 5, 0.5mg(5mg) for 5 days guaifenesin 600 mg tablet extended release 12hr 600 mg PO Q12H PRN (Reason: congestion) 7 Days Qty: 14 0RF Discharge Orders: Discharge ED (Routine); Ordered 07/16/24 Ordered By: Geronimo Woodall Patient Instructions: Pneumonia (ED) Activity Restrictions/Additional Instructions: Please take antibiotics and steroids as prescribed. Continue using your inhaler and nebulized albuterol treatments at home. Please note that if your breathing worsens or you develop any other new concerning symptoms, return to the emergency department as we discussed. See attached patient instructions for further education. Please follow-up with your primary care provider later this week as discussed. Coding Level of Care Code ED Sports Book Writer for Roxie Juan
[2024-07-16 19:51] LABS: Basophils # 0.1 10^3/uL (0.0-0.1); Basophils % 0.5 %; Eosinophils % 8.8 %; Hematocrit 38.5 % (36-47); Lymphocytes # 1.3 10^3/uL (0.8-4.8); Lymphocytes % 10.9 %; Mean Corpuscular HGB Conc 31.9 g/dL (30-55); Mean Corpuscular Hemoglobin 29.4 pg (27-33); Mean Corpuscular Volume 92.1 fl (85-98); Monocytes # 0.7 10^3/uL (0.2-0.9); Monocytes % 6.3 %; Neutrophils # 8.48 10^3/uL (1.8-7.7); Neutrophils % 73.2 %; Nucleated Red Blood Cells % 0 %; Platelet Count 301 10^3/cmm (157-399); Red Blood Count 4.18 10^6/uL (3.85-5.65); Red Cell Distribution Width 13.8 % (12.1-15.1); White Blood Count 11.59 10^3/uL (3.29-11.43)
[2024-07-16 19:58] LABS: Alanine Aminotransferase 7 U/L (0-33); Albumin Level 3.9 g/dL (3.5-5.2); Alkaline Phosphatase 108 U/L (35-105); Aspartate Amino Transferase 19 U/L (0-32); Blood Urea Nitrogen 19 mg/dL (6-20); Calcium 9.8 mg/dL (8.5-10.5); Carbon Dioxide 29 mmol/L (22-29); Chloride 96 mmol/L (98-107); Creatinine Clr Calc Pharmacy 77.5959; Globulin 3.3 g/dL (1.3-4.6); Glomerular Filtration Rate 66.5 mL/min (90-130); Glucose 148 mg/dL (65-115); NT Pro B Type Natriuretic Pept 399 pg/mL (0-125); Osmolality Calculated 283 mOsm/kg (285-295); Sodium 134 mmol/L (136-145); Total Bilirubin 0.4 mg/dL (0.15-1.2); Total Protein 7.2 g/dL (6.6-8.7)
[2024-07-16] MEDS: ipratropium-albuterol 3 mL Neb INHALATION ×2 (20:00→20:35)
[2024-07-16 20:05] LABS: Covid PCR NEGATIVE (Negative); Influenza A NEGATIVE (Negative); Influenza B NEGATIVE (Negative); Respiratory Syncytial Virus Ce NEGATIVE (Negative)
[2024-07-16] MEDS: predniSONE 20 mg Tablet 60 MG PO (21:10)
[2024-07-16] MEDS: doxycycline 100 mg Tablet PO ×3 (21:11)
== END 2024-07-16 21:21 | disposition home or self-care (01) ==
PROVIDERS: Emergency Medicine; Emergency Provider Physician Assistant
DX: J18.9 Pneumonia, unspecified organism (principal); J45.901 Unspecified asthma with (acute) exacerbation; Z11.52 Encounter for screening for COVID-19; I10 Essential (primary) hypertension
CPT/HCPCS: 71045; 80053; 83880; 85025; 87637; 93005; 94640; 96374; 99285; J2919; J7512

== ENCOUNTER 2024-11-05 09:51 | Inpatient (IN) | payer SELFPAY ==
[2024-11-05] VITALS (88 sets, daily range): BP systolic 133–185; BP diastolic 78–142; PULSE 55–122; RESP 16–35; TEMP 36.6; O2SAT 93–100; BMI 30.9
--- NOTE | 2024-11-05 10:01 | ECG_ITS ---
[facility]: [facility]24[facility]05 Pat Name: Yen Harding Department: Room: Gender: Female Care Management Associate: : 1975 Requested By: Arnel Cherry Order Number: [id number] Shaquille MD: Gonzales Monge M.D. Measurements Intervals Mcneal Rate: 97 P: 6 NM: 126 QRS: 55 QRSD: 80 T: 46 QT: 351 QTc: 447 Interpretive Statements SINUS RHYTHM Compared to ECG 07/16/2024 19:20:21 Sinus tachycardia no longer present Poor R-wave progression no longer present Electronically Signed On 11-06-2024 21:35:24 CDT by Gonzales Monge M.D. [email or web address]
[2024-11-05 10:04] LABS: ABG PCO2 46.8 mmHg (35-45); ABG PH Result 7.35 (7.35-7.45); Alveolar-Arterial Oxygen Gradi 64.5 mmHg (5-10); Arterial Blood Gas Hematocrit 39.5 % (37-47); Base Excess ABG -0.2 mmol/L (-2.0-2.0); Blood Gas Allen Test Pos; Blood Gas Operator Identificat MONRO; Blood Gas Sample Site Radial, right; Blood Gas Sample Type Arterial; Carboxyhemoglobin 0.8 %THgb (0.4-20.1); HCO3 ABG 25.9 mmol/L (22-26); HGB O2 Sat 97.8 % (95-100); Ionized Calcium Level - ABG 1.2 mmol/L (1.1-1.4); Methemoglobin 1.1 % (0.4-1.5); Oxygen Device NRB; Oxygen Saturation ABG > 99.1; PO2 FiO2 Ratio Arterial Blood 163; Potassium Level - ABG 3.7 mmol/L (3.5-5.0); Total Hemoglobin 12.9 g/dL (12-16)
--- NOTE | 2024-11-05 10:09 | ED_ITS ---
HPI - SOB/Dyspnea 2 General: Chief Complaint: Shortness of Breath/Dyspnea Stated Complaint: Resp Distress Time Seen by Provider: 11/05/24 10:00 History of Present Illness: HPI Narrative: 49-year-old female presents to the emerg ency room with complaint of shortness of breath difficulty breathing. She arrives by EMS. Patient reports a history of asthma she was given multiple breathing treatments and route as well as epinephrine. She is also been given a sublingual nitro. She denies any chest pain at this time. Symptoms have been getting progressively worse over the last 3 to 4 days. No vomiting no diarrhea cough nonproductive. On arrival patient is on a nonrebreather mask at 12 L/min satting in the upper 90s. Associated symptoms: Deny abdominal pain, chest pain or fever(s) Related Data Home Medications ?Medication ?Instructions ?Recorded ?Confirmed albuterol sulfate 2.5 mg/3 mL 2.5 mg inhalation .Q4-6H PRN 11/05/24 11/05/24 (0.083 %) solution for nebulization Shortness Of Breat h Previous Rx's ?Medication ?Instructions ?Recorded albuterol sulfate 90 mcg/actuation 1 puff inhalation Q 6H PRN 05/31/24 aerosol inhaler shortness of breath or wheez ing 30 days #8.5 grams guaifenesin 600 mg tablet, 600 mg PO Q12H PRN congesti on 7 05/31/24 extended release 12 hr days #14 tabs Allergies Allergy/AdvReac Type Severity Reaction Status Date / Time No Known Allergies Allergy Verified 07/16/24 19:14 Review of Systems 2 Const: Denies: fever(s) or chills Card: Denies: chest pain Resp: Denies: dyspnea GI: Denies: abdominal pain : Denies: dysuria, urinary frequency or urinary urgency Musc: Denies: neck pain or back pain Skin/Breast: Denies: rash PFSH ED 2 PFSH: Medical History Asthma Hypertension Depression Social History Smoking and tobacco/nicotine status: never used tobacco/nicotine Physical Exam 2 Const: GENERAL APPEARANCE: cooperative ORIENTATION/CONSCIOUSNESS: Yes awake, Yes oriented to person, Yes oriented to place and Yes oriented to time HENMT: COMMON NORMALS: normocephalic, atraumatic and hearing grossly normal bilaterally HEAD & SCALP: normocephalic and atraumatic Resp: EFFORT & INSPECTION: Yes tachypneic and Yes audible wheezes A USCULTATION: wheezes and diminished lung sounds Cardio: COMMON NORMALS: regular rhythm and No murmurs present (Cardio) R ATE: tachycardic RHYTHM: regular rhythm GI: COMMON NORMALS: Soft to palpation and No hepatosplenomegaly present A USCULTATION: Yes normoactive bowel sounds PALPATION: Yes Soft to palpation, No Tenderness to palpation present (GI), No Guarding due to palpation present (GI) and Yes No hepatosplenomegaly present Extremity: COMMON NORMALS: normal to inspection, capillary refill normal, no clubbing, cyanosis or edema, no calf tenderness and no pedal edema Neuro: SENSORIUM/ORIENTATION: Yes oriented to person, Yes oriented to place and Yes oriented to time Skin: COMMON NORMALS: no rashes or lesions noted GENERAL SKIN EXAM: no rashes or lesions noted Course 2 Vital Signs: Vital signs: Vital Signs Pulse Rate 101 H 11/05/24 11:55 Respiratory Rate 24 H 11/05/24 10:29 Blood Pressure 171/108 11/05/24 11:55 Pulse Oximetry 97 11/05/24 11:55 Oxygen Delivery Me thod Nasal Cannula 11/05/24 10:29 Oxygen Flow Rate 6 11/05/24 10:29 MDM - SOB/Dyspnea Medical Decision Making Acute asthma exacerbation improved with nebulizers and steroids here. Chest x- ray questionable right lower lobe pneumonia and started on antibiotics and her white count is elevated. She did get some albuterol which may have caused some peripheral demargination. She does states she is feeling much better discussed with the patient she would be willing to undergo intubation if her situation worsening in the past she states she is responded well to steroids. Discussed with hospitalist orders written Medical Records I reviewed the patient's medical records. Lab Data I reviewed the patient's lab results. 11/05/24 10:12 11/05/24 10:12 Labs/Radiology: Radiology Impressions Chest X-Ray 11/05/24 11:36 IMPRESSION: 1. Linear atelectasis or scarring suspected at the lung bases worse on the right. No definite consolidation noted. Laboratory Results WBC 15.48 10^3/uL (3.29-11.43) H 11/05/24 10:12 RBC 4.21 10^6/uL (3.85-5.65) 11/05/24 10:12 Hgb 12.20 g/dL (11.27-16.99) 11/05/24 10:12 Hct 38.9 % (36-47) 11/05/24 10:12 MCV 92.4 fl (85-98) 11/05/24 10:12 MCH 29.0 pg (27-33) 11/05/24 10:12 MCHC 31.4 g/dL (30-55) 11/05/24 10:12 RDW 14.4 % (12.1-15.1) 11/05/24 10:12 Plt Count 301 10^3/cmm (157-399) 11/05/24 10:12 MPV 10.2 fL (7.4-10.4) 11/05/24 10:12 Neut % (Auto) 76.4 % 11/05/24 10:12 Lymph % (Auto) 7.2 % 11/05/24 10:12 Dickens % (Auto) 5.1 % 11/05/24 10:12 Eos % (Auto) 10.3 % 11/05/24 10:12 Baso % (Auto) 0.5 % 11/05/24 10:12 Neut # (Auto) 11.84 10^3/uL (1.8-7.7) H 11/05/24 10:12 Lymph # (Auto) 1.1 10^3/uL (0.8-4.8) 11/05/24 10:12 Dickens # (Auto) 0.8 10^3/uL (0.2-0.9) 11/05/24 10:12 Eos # (Auto) 1.6 10^3/uL (0.0-0.8) H 11/05/24 10:12 Baso # (Auto) 0.1 10^3/uL (0.0-0.1) 11/05/24 10:12 Nucleated RBC % (auto) 0 % 11/05/24 10:12 Nucleated RBCs # 0.0 /100WBC 11/05/24 10:12 Specimen Type Arterial 11/05/24 09:50 Sample Site Radial, right 11/05/24 09:50 ABG pH 7.35 (7.35-7.45) 11/05/24 09:50 ABG pCO2 46.8 mmHg (35-45) H 11/05/24 09:50 ABG pO2 163.0 mmHg (80.0-100.0) H 11/05/24 09:50 ABG PO2/FiO2 Ratio 163 11/05/24 09:50 ABG HCO3 25.9 mmol/L (22-26) 11/05/24 09:50 ABG O2 Saturation > 99.1 11/05/24 09:50 ABG Base Excess -0.2 mmol/L (-2.0-2.0) 11/05/24 09:50 Sean Test Pos 11/05/24 09:50 A-a O2 Gradient 64.5 mmHg (5-10) H 11/05/24 09:50 Hematocrit 39.5 % (37-47) 11/05/24 09:50 Hgb O2 Saturation 97.8 % (95-100) 11/05/24 09:50 Carboxyhemoglobin 0.8 %THgb (0.4-20.1) 11/05/24 09:50 Methemoglobin 1.1 % (0.4-1.5) 11/05/24 09:50 Total Hemoglobin 12.9 g/dL (12-16) 11/05/24 09:50 Sodium 139.0 mmol/L (131-143) 11/05/24 09:50 Potassium 3.7 mmol/L (3.5-5.0) 11/05/24 09:50 Glucose 175.0 mg/dL (70-115) H 11/05/24 09:50 Ionized Calcium 1.2 mmol/L (1.1-1.4) 11/05/24 09:50 O2 Delivery Device Nrb 11/05/24 09:50 O2 Liters/Min 12.0 % 11/05/24 09:50 FiO2 100.0 % 11/05/24 09:50 Urogynaecologist ID Monro 11/05/24 09:50 Sodium 138 mmol/L (136-145) 11/05/24 10:12 Potassium 3.9 mmol/L (3.5-5.1) 11/05/24 10:12 Chloride 102 mmol/L (98-107) 11/05/24 10:12 Carbon Dioxide 24 mmol/L (22-29) 11/05/24 10:12 Anion Gap 15.9 (5-19) 11/05/24 10:12 BUN 13 mg/dL (6-20) 11/05/24 10:12 Creatinine 0.9 mg/dL (0.5-0.9) 11/05/24 10:12 GFR Calculation 66.5 mL/min (90-130) L 11/05/24 10:12 Glucose 169 mg/dL (65-115) H 11/05/24 10:12 Calculated Osmolality 290 mOsm/kg (285-295) 11/05/24 10:12 Lactic Acid 1.2 mmol/L (0.5-2.2) 11/05/24 10:12 Calcium 9.3 mg/dL (8.5-10.5) 11/05/24 10:12 Magnesium 1.6 mg/dL (1.7-2.3) L 11/05/24 10:12 Total Bilirubin 0.4 mg/dL (0.15-1.2) 11/05/24 10:12 AST 15 U/L (0-32) 11/05/24 10:12 ALT 6 U/L (0-33) 11/05/24 10:12 Alkaline Phosphatase 112 U/L (35-105) H 11/05/24 10:12 Troponin T Baseline 34 ng/L (0-10) H 11/05/24 10:12 Total Protein 6.6 g/dL (6.6-8.7) 11/05/24 10:12 Albumin 4.1 g/dL (3.5-5.2) 11/05/24 10:12 Globulin 2.5 g/dL (1.3-4.6) 11/05/24 10:12 Influenza A (PCR) Negative (Negative) 11/05/24 11:05 Influenza Type B (PCR) Negative (Negative) 11/05/24 11:05 RSV (PCR) Negative (Negative) 11/05/24 11:05 SARS-CoV-2 (PCR) Negative (Negative) 11/05/24 11:05 All radiology interpretation(s) finalized by discharge Discharge Plan Discharge Patient Disposition: Admitted As Inpatient Admit Provider: Liborio Crawford Clinical Impression: Asthma with exacerbation, RLL pneumonia Condition: Stable Coding Level of Care Code ED Still Operator for Roxie Juan
[2024-11-05] MEDS: ipratropium-albuterol 3 mL Neb 6 ML INHALATION (10:16)
[2024-11-05 10:19] LABS: Basophils # 0.1 10^3/uL (0.0-0.1); Basophils % 0.5 %; Eosinophils # 1.6 10^3/uL (0.0-0.8); Eosinophils % 10.3 %; Hematocrit 38.9 % (36-47); Lymphocytes # 1.1 10^3/uL (0.8-4.8); Lymphocytes % 7.2 %; Mean Corpuscular HGB Conc 31.4 g/dL (30-55); Mean Corpuscular Volume 92.4 fl (85-98); Mean Platelet Volume 10.2 fL (7.4-10.4); Monocytes # 0.8 10^3/uL (0.2-0.9); Monocytes % 5.1 %; Neutrophils # 11.84 10^3/uL (1.8-7.7); Neutrophils % 76.4 %; Nucleated Red Blood Cells % 0 %; Platelet Count 301 10^3/cmm (157-399); Red Blood Count 4.21 10^6/uL (3.85-5.65); Red Cell Distribution Width 14.4 % (12.1-15.1); White Blood Count 15.48 10^3/uL (3.29-11.43)
--- NOTE | 2024-11-05 10:19 | PC.PHAR ---
Addendum entered by Amanda Torres 11/05/24 10:22: Pt in resp distress and working with PT. verified current med list with Marlene. Original Note: Pts' most recent medications verified with Marlene Flores. [facility] states pt has several rx's on hold-never picked up. All approximately 6 months old. I asked what type of meds and he stated Lisinopril, Citalopram, Bupropion, etc.
[2024-11-05 10:35] LABS: Lactic Sepsis W/Reflex 1.2 mmol/L (0.5-2.2)
[2024-11-05 10:42] LABS: Alanine Aminotransferase 6 U/L (0-33); Albumin Level 4.1 g/dL (3.5-5.2); Alkaline Phosphatase 112 U/L (35-105); Anion Gap 15.9 (5-19); Aspartate Amino Transferase 15 U/L (0-32); Blood Urea Nitrogen 13 mg/dL (6-20); Calcium 9.3 mg/dL (8.5-10.5); Carbon Dioxide 24 mmol/L (22-29); Chloride 102 mmol/L (98-107); Creatinine Clr Calc Pharmacy 75.4301; Globulin 2.5 g/dL (1.3-4.6); Glomerular Filtration Rate 66.5 mL/min (90-130); Glucose 169 mg/dL (65-115); Magnesium 1.6 mg/dL (1.7-2.3); Osmolality Calculated 290 mOsm/kg (285-295); Potassium 3.9 mmol/L (3.5-5.1); Sodium 138 mmol/L (136-145); Total Bilirubin 0.4 mg/dL (0.15-1.2); Total Protein 6.6 g/dL (6.6-8.7)
[2024-11-05] MEDS: dexamethasone 10 mg/mL INJ IM (10:45)
[2024-11-05 10:59] LABS: Troponin(5th) Baseline 34 ng/L (0-10)
--- NOTE | 2024-11-05 11:36 | XRR_ITS ---
PROCEDURE INFORMATION: Exam: XR Chest Exam date and time: 11/05/2024 11:37 AM Age: 49 years old Clinical indication: Cough and dyspnea; Additional info: Dyspnea/cough TECHNIQUE: Imaging protocol: Radiologic exam of the chest. Views: 1 view. COMPARISON: CR XR chest 1V portable [id number] 07/16/2024 7:29 PM FINDINGS: Lungs: There are linear type opacities at the lung bases worse on the right than on the left. Findings may reflect areas of scarring or atelectasis. No consolidated infiltrates are appreciated. Pleural spaces: Unremarkable. No pleural effusion. No pneumothorax. Heart/Mediastinum: Unremarkable. No cardiomegaly. Bones/joints: Unremarkable. XR/XR chest 1V portable [id number] IMPRESSION: 1. Linear atelectasis or scarring suspected at the lung bases worse on the right. No definite consolidation noted.
[2024-11-05] MEDS: magnesium sulfate premix 2 GM/50 ML PIGGYBACK IV ×2 (11:44→16:17)
--- NOTE | 2024-11-05 12:08 | ECG_ITS ---
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 Measurements Intervals [place] Rate: 95 P: 22 LA: 128 QRS: 56 QRSD: 98 T: 61 QT: 354 QTc: 446 Interpretive Statements SINUS RHYTHM Compared to ECG 11/05/2024 10:25:10 No significant changes Electronically Signed On 11-06-2024 21:50:08 CDT by Gonzales Monge M.D. [email or web address] [id number]
[2024-11-05] MEDS: methylPREDNISolone sod succ 125 mg/2 mL INJ 60 MG IVP ×3 (12:11→23:59)
[2024-11-05 12:13] LABS: Influenza A NEGATIVE (Negative); Influenza B NEGATIVE (Negative); Respiratory Syncytial Virus Ce NEGATIVE (Negative); SARS-CoV-2 PCR NEGATIVE (Negative)
[2024-11-05] MEDS: piperacillin-tazobactam 3.375 GM in sodium chloride 0.9% (plus) 50 ML IV (12:15)
[2024-11-05] MEDS: ipratropium-albuterol 3 mL Neb INHALATION ×3 (12:20→20:59)
[2024-11-05] MEDS: acetaminophen 325 mg Tablet 650 MG PO ×2 (12:39→18:20)
[2024-11-05] MEDS: citalopram 20 mg Tablet PO (12:39)
[2024-11-05] MEDS: lisinopril 20 mg Tablet PO (12:39)
[2024-11-05] MEDS: enoxaparin 40 mg/0.4 mL Syringe SUBCUT (12:40)
[2024-11-05 12:42] LABS: Troponin 5 2HR 50.95 ng/L (0-10)
--- NOTE | 2024-11-05 12:44 | P.HP_ITS ---
Providers/Chief Complaint 2 Admitting Physician: Liborio Crawford Chief Complaint: Resp Distress History of Present Illness The patient with a history of asthma, hypertension, depression, and hypothyroidism presents with an acute exacerbation of asthma over the past few days. They report increased shortness of breath accompanied by a dry cough (without phlegm), wheezing, and chest tightness that worsened last night. The patient also experienced fever, chills, sore throat, and a runny nose. Mild nausea (likely related to nitroglycerin administration in the ambulance) and a current mild headache were noted. The patient mentioned that such exacerbations occur about three to four times a year and recalled a hospital admission for pneumonia in April. At home, they use an albuterol inhaler and a nebulizer but are now out of several patel medications. On evaluation in ER she is found to be in respiratory failure, respiratory in the 30s, saturations down to 87, was started on nonrebreather oxygen, ABG pO2 163 on 12 L on nonrebreather. Review of Systems 2 Const: Denies: fever(s), chills or body aches ENMT: Denies: throat pain Card: Denies: chest pain, edema, pre-syncope or dyspnea on exertion Resp: Reports: dyspnea, non-productive cough and wheezing; Denies: productive cough, change in phlegm color or hemoptysis GI: Reports: nausea; Denies: abdominal pain, vomiting, diarrhea, constipation, hematochezia or melena : Denies: flank pain, urinary frequency or hematuria Musc: Denies: back pain, joint swelling or joint redness Skin/Breast: Denies: rash or new lesions Neuro: Denies: headache(s) or confusion Medications/Allergies Home Medications ?Medication ?Instructions ?Recorded ?Confirmed ?Last Taken ?Type albuterol sulfate 90 mcg/actuation 1 puff inhalation Q 6H PRN 05/31/24 11/05/24 Unknown Rx aerosol inhaler shortness of breath or wheez ing 30 days #8.5 grams guaifenesin 600 mg tablet, 600 mg PO Q12H PRN congesti on 7 05/31/24 11/05/24 Unknown Rx extended release 12 hr days #14 tabs albuterol sulfate 2.5 mg/3 mL 2.5 mg inhalation .Q4-6H PRN 11/05/24 11/05/24 Unknown History (0.083 %) solution for nebulization Shortness Of Breat h Allergies Allergy/AdvReac Type Severity Reaction Status Date / Time No Known Allergies Allergy Verified 07/16/24 19:14 PFSH Acute 2 PFSH: Medical History RLL pneumonia Oct Hypothyroidism Asthma Hypertension Depression Surgical History H/O thyroidectomy Social History (Updated 11/05/24 @ 15:37 by Liborio Crawford MD) Smoking and tobacco/nicotine status: never used tobacco/nicotine Alcohol intake: never Substance/Drug Use: current Substance/Drug use frequency: few times a month Substance/Drug use type: Amphetamines Vitals/I&O/Wt Last Vital Signs Pulse 100 11/05/24 12:19 Resp 23 H 11/05/24 12:10 BP 171/108 11/05/24 11:55 Pulse Ox 98 11/05/24 12:10 O2 Del Method Nasal Cannula 11/05/24 12:10 O2 Flow Rate 4 11/05/24 12:10 Weight last 48 hrs Weight 79.379 kg Physical Exam 2 Narrative: Accompanied by her . Const: COMMON NORMALS: patient oriented x3 and alert GENERAL APPEARANCE: c ooperative ORIENTATION/CONSCIOUSNESS: Yes awake HENMT: COMMON NORMALS: oropharynx normal Neck/C-Spine: COMMON NORMALS: no JVD Resp: AUSCULTATION: wheezes (mild-mod) and diminished lung sounds (mild-mod) Cardio: COMMON NORMALS: no JVD, regular rhythm, S1 normal heart sound present, S2 normal heart sound present and No murmurs present (Cardio) RHYTHM: regular rhythm HEART SOUNDS: S1 normal heart sound present and S2 normal heart sound present GI: COMMON NORMALS: Normal to inspection, nondistended, normoactive bowel sounds present, Soft to palpation and non-tender PALPATION: Yes Soft to palpation Extremity: COMMON NORMALS: no joint enlargement and no pedal edema Neuro: COMMON NORMALS: patient oriented x3 and moves all extremities S ENSORIUM/ORIENTATION: Yes alert Skin: COMMON NORMALS: no rashes or lesions noted GENERAL SKIN EXAM: no rashes or lesions noted Data 11/05/24 10:12 11/05/24 10:12 Micro: Microbiology 11/05/24 10:12 Blood Culture - Preliminary Blood SPECIMEN COLLECTED 11/05/24 10:10 Blood Culture - Preliminary Blood SPECIMEN COLLECTED A&P Assessment and plan (1) Acute respiratory failure with hypoxia: Acute respiratory failure with new hypoxia, saturation down to 87%, requiring oxygen with nonrebreather support, with treatment with breathing treatment, magnesium, was able to wean down to 6 L nasal cannula. Reviewed vitals, CBC, D- dimer, ABG 7.35/46.8/163. Reviewed CMP, troponin, EKG, chest x-ray, ER provider note, discussed with ER provider. Moderate to severe asthma exacerbation, initial admission to ICU. Continue oxygen support. Intravenous corticosteroids with Solu-Medrol 60 mg every 6 hours, breathing treatments, scheduled and as needed DuoNebs, as well as every 2 hours as needed albuterol as per discussion with respiratory therapist. With leukocytosis noted on CBC review, although chest x-ray without suggestion of pneumonia, with linear atelectasis or scarring suspected at the lung bases. Reviewed respiratory panel with influenza RSV and COVID, negative. D-dimer requested, noted abnormal, 0.88, discussed with her as well, discussed additional assessment with CT angiogram, including risk of complications including allergy, contrast nephropathy. She is agreeable to proceed. Has had a CTA in the past without issues. Receiving breathing treatment prior to CT angiogram, advancing additional dose of Solu-Medrol, will repeat magnesium 2 g. (2) Asthma with exacerbation: As above. Moderate to severe asthma exacerbation with tachypnea, hypoxia, diminished air entry, wheezing, respiratory failure. She has ran out of her Advair about 2 weeks ago. As well as has ran out of her rescue inhaler. She denies symptomatic environmental allergies, although it has been high pollen recently. She denies febrile illness or any sick contacts recently at home. 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 She will benefit from Advair refill if possible at discharge. Initially avoiding benzodiazepine, however, with significant anxiety associated with the asthma exacerbation respiratory failure, cautiously adding 0.5 mg Xanax as needed every 6 hours until symptoms start improving. Dose may need to be increased depending on response, discussed with nursing -avoid if any somnolence. Plan Trop elevation: Troponin with mild to moderate elevation, with positive delta. EKG on my interpretation with sinus rhythm without evidence of ischemia. May have some underlying undiagnosed coronary disease. Complete troponin EKG series. Obtain TTE. Suspect demand ischemia secondary to respiratory failure, but may benefit from further risk stratification. 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 He is in the process of quitting. Her has been in rehabilitation as well and states has not had any use in the last 90 days having achieved the milestone. Patient currently using intermittently states about every 2 weeks. Denies any IV use. Discussed with her additional assessment with hepatitis panel and HIV, she is agreeable. Encouraged cessation, discussed severe risks associated with use and she verbalized understanding. Hypothyroidism: She has run out of levothyroxine at home. Normally used 75 mcg daily. Resume. Depression: She has run out of citalopram and in the past also was on Wellbutrin. Resume citalopram. PDMP PDMP Reviewed: Not Reviewed Attestations 2 Medical Necessity Statement*: Admission over 2 midnights at this bed for assessment and management of respiratory failure with moderate to severe asthma exacerbation. Coding Level of Care Code Critical Care >/= 30 minutes Critical care time (in minutes): 35 The high probability of a clinically significant, sudden or life threatening deterioration, as referenced in this documentation, required my full and direct attention, intervention and personal management. The critical care time shown is in addition to time spent performing any reported separately billable procedures and includes the following: [x] Data and vital sign review and interpretation [x ] Patient assessment, examination and intervention [x] Medication orders and management [x] Patient/Family updates as able [x] Care Coordination and Documentation. Diagnoses Acute respiratory failure with hypoxia J96.01 Asthma with exacerbation J45.901
[2024-11-05 12:50] LABS: Troponin 5 2HR Delta 16.95 ABS# (0-10)
[2024-11-05 13:14] LABS: D Dimer 0.88 ug/mLFEU (0-0.59)
--- NOTE | 2024-11-05 13:22 | PC.NURSE ---
Received patient form ER staff at 1200. patient is alert, oriented to person, place, time, and situation. BP: 162/99, HR: 96, RR: 30, SPO2: 97% on 4L NC. Inspiratory and expiratory wheezing present, still present but decreased after a breathing treatment given by RT. Patient complains of a headache for which tylenol was given. APpears anxious, started on citalopram.
[2024-11-05 13:29] LABS: HIV 1 & 2 Antibody Non-Reactive (Non-Reactiv); HIV 1 & 2 Antigen Non-Reactive (Non-Reactiv)
[2024-11-05 13:31] LABS: Hepatitis A Antibody IgM Non-Reactive (Nonreactive); Hepatitis B Core IgM Non-Reactive (Nonreactive); Hepatitis B Surface Antigen Non-Reactive (Nonreactive); Hepatitis C Virus Antibody Non-Reactive (Nonreactive)
--- NOTE | 2024-11-05 13:59 | CTR_ITS ---
PROCEDURE INFORMATION: Exam: CTA Chest With Contrast Exam date and time: 11/05/2024 4:01 PM Age: 49 years old Clinical indication: Shortness of breath; Additional info: Resp fail. Assess for pe TECHNIQUE: Imaging protocol: Computed tomographic angiography of the chest with contrast. Exam focused on the arteries. 3D rendering (Not supervised by radiologist): MIP and/or 3D reconstructed images were created by the technologist. Radiation optimization: All CT scans at this facility use at least one of these dose optimization techniques: automated exposure control; mA and/or kV adjustment per patient size (includes targeted exams where dose is matched to clinical indication); or iterative reconstruction. Contrast material: OMNI 350; Contrast volume: 100 ml; Contrast route: INTRAVENOUS (IV); COMPARISON: CT angio chest PE protcl [id number] 05/25/2024 11:15 PM RADIATION DOSE METRICS: Total DLP (mGy-cm): 409.91 FINDINGS: Pulmonary arteries: Normal. No pulmonary emboli. Aorta: Unremarkable. No aortic aneurysm. No aortic dissection. Lungs: Patchy areas of infiltrate are scattered throughout both lungs. No lung mass noted. Pleural spaces: Unremarkable. No pneumothorax. No pleural effusion. Heart: Unremarkable. No cardiomegaly. No pericardial effusion. Lymph nodes: Unremarkable. No enlarged lymph nodes. Bones/joints: There is a healing rib fracture involving the right 6th rib. Soft tissues: Unremarkable. CT/CT angio chest PE protcl [id number] IMPRESSION: 1. Bilateral pneumonia 2. Healing right rib fracture
[2024-11-05] MEDS: guaiFENesin 600 mg Tablet PO (15:21)
--- NOTE | 2024-11-05 15:28 | USCV_ITS ---
Yen Harding Age: 49 Gender: F : 1975 Exam Date: 11/05/2024 21:07 Ordering Phys: Liborio Crawford MD Technologist: Ahsan Rider Exam Location: [facility] Indication: respiratory failure, elevated troponin, history of asthma, HTN, now with fever, chills, sore throat, influenza. BP: 140 / 78 HR: 92 Rhythm: Sinus Technical Quality: Adequate MEASUREMENTS (Male / Female) Normal Values 2D ECHO LV Diastolic Diameter PLAX 3.8 cm 4.2 - 5.9 / 3.9 - 5.3 cm IVS Diastolic Thickness 1.4 cm 0.6 - 1.0 / 0.6 - 0.9 cm IVS Systolic Thickness 1.3 cm LVPW Diastolic Thickness 1.2 cm 0.6 - 1.0 / 0.6 - 0.9 cm LVPW Systolic Thickness 1.7 cm LVOT Diameter 1.9 cm LV Ejection Fraction 2D Teich 61.0 % LV Ejection Fraction MOD 4C 58.2 % LV Ejection Fraction MOD 2C 59.9 % LV Ejection Fraction 2C AL 59.4 % LA Diameter 3.7 cm Aorta at Sinotubular Diameter 3.1 cm IVC Diameter 1.2 cm M-MODE LA Ao Ratio MM 1.3 AV Cusp Separation MM 2.4 cm DOPPLER AV Peak Velocity 159.0 cm/s LVOT Peak Velocity 144.0 cm/s AV Area Cont Eq vti 2.6 cm squared AV Area Cont Eq pk 2.5 cm squared MV Peak Velocity 114.0 cm/s MV Area PHT 4.2 cm squared Mitral E to A Ratio 0.8 TR Peak Velocity 239.0 cm/s TR Peak Gradient 22.8 mmHg TV Peak E Velocity 50.0 cm/s PV Peak Velocity 111.0 cm/s FINDINGS Left Ventricle Normal left ventricular size and systolic function, EF 61%. No regional wall motion abnormalities. Mild left ventricular hypertrophy. Grade I/IV diastolic dysfunction (abnormal relaxation filling pattern), normal to mildly elevated filling pressures. Right Ventricle The right ventricle is normal in size and function. Right Atrium The right atrium is normal in size. Left Atrium The left atrium is normal in size. Mitral Valve No gross abnormalities noted Aortic Valve Minimally thickened aortic valve Tricuspid Valve No gross abnormalities noted Pulmonic Valve No gross abnormalities noted Pericardium Normal pericardium without effusion. Aorta Normal aortic annulus size. IVC Normal inferior vena cava. CONCLUSIONS Normal left ventricular size and systolic function, EF 61%. No regional wall motion abnormalities. Mild left ventricular hypertrophy. Grade I/IV diastolic dysfunction (abnormal relaxation filling pattern), normal to mildly elevated filling pressures. Minimally thickened aortic valve There is no pericardial effusion. There are no intracardiac masses. Compared to the study from 05/28/2024, there may not be a significant change. Dr Gonzales Monge MD FACC (Electronically Signed) Final Date: 05 November 2024 22:12 S
[2024-11-05] MEDS: ALPRAZolam 0.5 mg Tablet PO ×2 (15:42→22:48)
[2024-11-05 15:44] LABS: Bacteria Urine None Seen /hpf; Hyaline Casts Urine 2.87 /lpf; RBC Urine 0-2 /hpf (0-2); Squamous Epithelial Cell Urine 0-5 /hpf (0-5); WBC Urine 0-5 /hpf (0-5)
[2024-11-05 15:56] LABS: Add Urine Microscopic? YES; Bilirubin Urine Negative (Negative); Blood Urine Negative (Negative); Glucose Urine UA Trace (Normal); Ketones Urine Trace (Negative); Leukocyte Esterase Urine Negative (Negative); Nitrate Urine Negative (Negative); Protein Urine 1+ (Negative); Specific Gravity, Urine 1.018 (1.005-1.030); Urine Appearance Clear (CLEAR); Urine Color Yellow (Yellow); pH Urine 5.5 (5-7)
--- NOTE | 2024-11-05 16:01 | ECG_ITS ---
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 Measurements Intervals [place] Rate: 101 P: 40 [place]: 137 QRS: 58 QRSD: 75 T: 60 QT: 356 QTc: 462 Interpretive Statements SINUS TACHYCARDIA MINIMAL ST DEPRESSION [0.025+ mV ST DEPRESSION] ABNORMAL RHYTHM ECG Compared to ECG 11/05/2024 12:08:41 ST (T wave) deviation now present Sinus rhythm no longer present Electronically Signed On 11-06-2024 21:48:03 CDT by Gonzales Monge M.D. [email or web address] [id number]
[2024-11-05 16:24] LABS: ABG PH Result 7.36 (7.35-7.45); Arterial Blood Gas Hematocrit 37.4 % (37-47); Base Excess ABG 0.2 mmol/L (-2.0-2.0); Blood Gas Allen Test Pos; Blood Gas Operator Identificat GD; Blood Gas Sample Site Radial, right; Blood Gas Sample Type Arterial; HCO3 ABG 26.2 mmol/L (22-26); Oxygen Device NC; PO2 FiO2 Ratio Arterial Blood 302
[2024-11-05] MEDS: albuterol 2.5 mg/3 mL Neb INHALATION ×3 (16:46)
[2024-11-05 17:14] LABS: Troponin 5 6HR 35.04 ng/L (0-10); Troponin 5 6HR Delta 1.04 ng/L (0-12)
[2024-11-05] MEDS: cloNIDine 0.1 mg Tablet PO (18:20)
[2024-11-05 18:38] LABS: Glucose Point of Care 213 mg/dL (70-110)
--- NOTE | 2024-11-05 19:04 | PC.NURSE ---
Shift SUmmary: Increased work of breathing, anxiety, Expiratory wheezes, and inspiratory wheezes common throughout shift. Occasional decreased breath sounds/tightening airways required multiple breathing treatments. Xanax for anxiety. CTA shows pneumonia and rib fracture. At time of this note patient still has wheezing present, but work of breathing is greatly decreased, and less anxious.
[2024-11-05] MEDS: benzonatate 100 mg Capsule PO (19:50)
[2024-11-05] MEDS: budesonide 0.5 mg/2 mL Neb INHALATION (20:59)
[2024-11-05 23:14] LABS: Glucose Point of Care 180 mg/dL (70-110)
[2024-11-06] VITALS (35 sets, daily range): BP systolic 117–188; BP diastolic 75–116; PULSE 91–111; RESP 15–31; TEMP 35.6–37.2; O2SAT 92–99
[2024-11-06] MEDS: ipratropium-albuterol 3 mL Neb INHALATION ×6 (01:02→21:19)
--- NOTE | 2024-11-06 02:36 | PC.NURSE ---
Voids Unable to accurately assess urine output as patient is soiling briefs only. Patient states that when she coughs she is unable to control her urine and is requesting briefs to be worn. She has soiled 3 briefs.
--- NOTE | 2024-11-06 04:23 | PC.NURSE ---
Clonidine Dr Negrete ordered to give patient's 0900 dose of clonidine early as patient's blood pressure reached 188/102.
[2024-11-06] MEDS: cloNIDine 0.1 mg Tablet PO ×2 (04:26→17:10)
[2024-11-06 04:45] LABS: Basophils % 0.2 %; Hematocrit 38.4 % (36-47); Lymphocytes # 0.7 10^3/uL (0.8-4.8); Lymphocytes % 5.7 %; Mean Corpuscular HGB Conc 30.7 g/dL (30-55); Mean Corpuscular Volume 94.3 fl (85-98); Mean Platelet Volume 10.7 fL (7.4-10.4); Monocytes # 0.2 10^3/uL (0.2-0.9); Monocytes % 1.9 %; Neutrophils # 10.24 10^3/uL (1.8-7.7); Neutrophils % 90.1 %; Nucleated Red Blood Cells % 0 %; Platelet Count 261 10^3/cmm (157-399); Red Blood Count 4.07 10^6/uL (3.85-5.65); Red Cell Distribution Width 14.4 % (12.1-15.1); White Blood Count 11.37 10^3/uL (3.29-11.43)
[2024-11-06 05:09] LABS: Alanine Aminotransferase 7 U/L (0-33); Albumin Level 3.8 g/dL (3.5-5.2); Alkaline Phosphatase 102 U/L (35-105); Anion Gap 16.2 (5-19); Aspartate Amino Transferase 15 U/L (0-32); Blood Urea Nitrogen 22 mg/dL (6-20); Calcium 9.3 mg/dL (8.5-10.5); Carbon Dioxide 26 mmol/L (22-29); Chloride 101 mmol/L (98-107); Creatinine Clr Calc Pharmacy 76.7293; Globulin 3.3 g/dL (1.3-4.6); Glomerular Filtration Rate 66.5 mL/min (90-130); Glucose 179 mg/dL (65-115); Magnesium 2.4 mg/dL (1.7-2.3); Osmolality Calculated 296 mOsm/kg (285-295); Potassium 4.2 mmol/L (3.5-5.1); Sodium 139 mmol/L (136-145); Total Bilirubin 0.2 mg/dL (0.15-1.2); Total Protein 7.1 g/dL (6.6-8.7)
[2024-11-06] MEDS: benzonatate 100 mg Capsule PO (05:57)
[2024-11-06] MEDS: ALPRAZolam 0.5 mg Tablet PO ×3 (05:57→17:10)
[2024-11-06] MEDS: levothyroxine 75 mcg Tablet PO (05:57)
[2024-11-06] MEDS: methylPREDNISolone sod succ 125 mg/2 mL INJ 60 MG IVP ×4 (05:57→23:56)
[2024-11-06] MEDS: acetaminophen 325 mg Tablet 650 MG PO ×2 (06:01→11:55)
--- NOTE | 2024-11-06 06:09 | PC.NURSE ---
Void Unable to accurately measure void. Patient soiled 2 briefs.
[2024-11-06] MEDS: AZITHROMYCIN ADD-Vantage 500 MG in 0.9% NaCl ADD-Vantage 250 ML 250 MG IV (07:44)
[2024-11-06] MEDS: cefTRIAXone 1,000 mg SDV 1000 MG IVP (07:47)
--- NOTE | 2024-11-06 08:06 | PM.PN ---
Subjective Subjective: She feels she is improving. Feeling somewhat better today. Currently sleeping/resting, but wakes up to voice and shoulder touch. Still having dry cough. Cough is bothersome to her. Otherwise no additional discomfort. Vitals/I&O/Wt Last Vital Signs Temp 96.0 F L 11/06/24 06:00 Pulse 98 11/06/24 06:00 Resp 21 H 11/06/24 04:50 BP 156/104 11/06/24 04:30 Pulse Ox 99 11/06/24 04:50 O2 Del Method Nasal Cannula 11/06/24 04:50 O2 Flow Rate 5 11/06/24 04:50 11/05/24 11/06/24 11/06/24 22:59 06:59 14:59 Intake Total 900 / 1000 Output Total 200 / 200 Balance 700 / 800 Weight last 48 hrs Weight 82.097 kg Weight 82.1 kg Weight 79.379 kg Physical Exam Narrative: Accompanied by her . Const: COMMON NORMALS: patient oriented x3 and alert GENERAL APPEARANCE: cooperative ORIENTATION/CONSCIOUSNESS: Yes awake HENMT: COMMON NORMALS: oropharynx normal Neck/C-Spine: COMMON NORMALS: no JVD Resp: AUSCULTATION: no wheezes and diminished lung sounds (mild-mod) Cardio: COMMON NORMALS: no JVD, regular rhythm, S1 normal heart sound present, S2 normal heart sound present and No murmurs present (Cardio) RHYTHM: regular rhythm HEART SOUNDS: S1 normal heart sound present and S2 normal heart sound present GI: COMMON NORMALS: Normal to inspection, nondistended, normoactive bowel sounds present, Soft to palpation and non-tender PALPATION: Yes Soft to palpation Extremity: COMMON NORMALS: no joint enlargement and no pedal edema Neuro: COMMON NORMALS: patient oriented x3 and moves all extremities SENSORIUM/ORIENTATION: Yes alert Skin: COMMON NORMALS: no rashes or lesions noted GENERAL SKIN EXAM: no rashes or lesions noted Data 11/06/24 04:17 11/06/24 04:17 Micro: Microbiology 11/05/24 10:12 Blood Culture - Preliminary Blood SPECIMEN COLLECTED 11/05/24 10:10 Blood Culture - Preliminary Blood SPECIMEN COLLECTED A&P Assessment and plan (1) Acute respiratory failure with hypoxia: Reviewed vitals, CBC, D-dimer, CTA, CMP, limited respiratory panel with COVID, RSV, influenza reviewed, negative. She is still coughing, dry cough, nonproductive of any phlegm. CTA chest reviewed, no PE, but noted changes consistent with bilateral pneumonia. Will request broader respiratory viral panel. Discussed with her addition of empiric antibiotic coverage with ceftriaxone and azithromycin. Reviewed EKG, on my interpretation sinus bradycardia. No QT prolongation. Reassess EKG, monitor for risk of QT prolongation with macrolide antibiotic. Still on 5 L nasal cannula support this morning, but able to turn down to 3 L at the moment. Continue oxygen support. Wean down as tolerating. Did require Xanax overnight for anxiety. Continue IV steroid at current. For asthma exacerbation, if continues to do well, wean down. Monitor for risk of hypertension, hyperglycemia, encephalopathy, gastritis with IV steroid. Decreased frequency of as needed nebs. Should be able to move out of intensive care unit, continue care on medical surgical floor. And additional antitussive. Discussed with respiratory, nursing, insurance case manager. Acute respiratory failure with new hypoxia, saturation down to 87%, requiring oxygen with nonrebreather support, with treatment with breathing treatment, magnesium, was able to wean down to 6 L nasal cannula. Moderate to severe asthma exacerbation, initial admission to ICU. (2) Asthma with exacerbation: As above. Moderate to severe asthma exacerbation with tachypnea, hypoxia, diminished air entry, wheezing, respiratory failure. She has ran out of her Advair about 2 weeks ago. As well as has ran out of her rescue inhaler. She denies symptomatic environmental allergies, although it has been high pollen recently. She denies febrile illness or any sick contacts recently at home. She does not follow with clinical services specialist yet, she is in process of working on setting up Medicaid and is planning to subsequently set up with pulmonology. She will benefit from Advair refill if possible at discharge. Initially avoiding benzodiazepine, however, with significant anxiety associated with the asthma exacerbation respiratory failure, cautiously adding 0.5 mg Xanax as needed every 6 hours until symptoms start improving. Dose may need to be increased depending on response, discussed with nursing -avoid if any somnolence. Plan Trop elevation: Reviewed troponin series, noted positive delta 17, up to highest troponin 50.95, at 6 hours down to 35. Reviewed TTE. Suspected demand ischemia. May have some underlying undiagnosed coronary disease. Suspect demand ischemia secondary to respiratory failure, but may benefit from further risk stratification. 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 He is in the process of quitting. Her has been in rehabilitation as well and states has not had any use in the last 90 days having achieved the milestone. Patient currently using intermittently states about every 2 weeks. Denies any IV use. Discussed with her additional assessment with hepatitis panel and HIV, she is agreeable. Encouraged cessation, discussed severe risks associated with use and she verbalized understanding. Hypothyroidism: She has run out of levothyroxine at home. Normally used 75 mcg daily. Resume. Depression: She has run out of citalopram and in the past also was on Wellbutrin. Resume citalopram. PDMP PDMP Reviewed: Not Reviewed Attestations Medical Necessity Statement*: Continue admission for assessment management of acute respiratory failure with hypoxia, moderate to severe asthma exacerbation, bilateral pneumonia. and High MDM includes amount and/or complexity of data reviewed/ordered [ resulted lab(s)/test(s), ordered lab(s)/test(s) and other healthcare professional discussion] and described risk of complication, morbidity or mortality of management as documented Diagnoses Acute respiratory failure with hypoxia J96.01 Asthma with exacerbation J45.901
[2024-11-06] MEDS: citalopram 20 mg Tablet PO (08:08)
[2024-11-06] MEDS: guaiFENesin 600 mg Tablet PO (08:08)
[2024-11-06] MEDS: lisinopril 20 mg Tablet PO (08:09)
[2024-11-06] MEDS: guaiFENesin-dextromethorphan UDC 10 mL PO ×4 (08:18→23:56)
[2024-11-06] MEDS: budesonide 0.5 mg/2 mL Neb INHALATION ×2 (08:23→21:19)
[2024-11-06 10:41] LABS: Adenovirus Not Detected (NOT DETECT); Chlamydia Pneumoniae Not Detected (NOT DETECT); Coronavirus 229E,HKU1,NL63,OC4 Not Detected (NOT DETECT); Human Metapneumovirus Not Detected (NOT DETECT); Human Rhinovirus/Enterovirus Not Detected (NOT DETECT); Influenza A Not Detected (NOT DETECT); Influenza A H1 Not Detected (NOT DETECT); Influenza A H1-2009 Not Detected (NOT DETECT); Influenza A H3 Not Detected (NOT DETECT); Influenza B Not Detected (NOT DETECT); Mycoplasma Pneumoniae Not Detected (NOT DETECT); Parainfluenza Virus Type 1 Not Detected (NOT DETECT); Parainfluenza Virus Type 2 Not Detected (NOT DETECT); Parainfluenza Virus Type 3 Not Detected (NOT DETECT); Parainfluenza Virus Type 4 Not Detected (NOT DETECT); Respiratory Syncytial Virus A Not Detected (NOT DETECT); Respiratory Syncytial Virus B Not Detected (NOT DETECT); SARS-COV-2 Not Detected (NOT DETECT)
[2024-11-06] MEDS: enoxaparin 40 mg/0.4 mL Syringe SUBCUT (11:56)
--- NOTE | 2024-11-06 15:29 | PC.NURSE ---
Report given to Yen. Transferred to room 256-2 via bed, at bedside.
--- NOTE | 2024-11-06 15:44 | PC.NURSE ---
Pt received from ICU. at bedside. Assessment performed. Fan and extra linens obtained per request. No further needs voiced.
[2024-11-07] VITALS (17 sets, daily range): BP systolic 155–181; BP diastolic 87–95; PULSE 89–112; RESP 16–24; TEMP 36.3–36.9; O2SAT 94–98; BMI 31.8
[2024-11-07] MEDS: ipratropium-albuterol 3 mL Neb INHALATION ×6 (00:29→20:59)
[2024-11-07] MEDS: ALPRAZolam 0.5 mg Tablet PO ×4 (01:26→23:57)
[2024-11-07] MEDS: lidocaine 2% viscous 15 ML, aluminum-mag hydrox-simethicon 30 ML, sucralfate oral liq 1 GM PO (04:27)
[2024-11-07 05:10] LABS: Basophils % 0.2 %; Eosinophils % 0.1 %; Hematocrit 38.1 % (36-47); Lymphocytes # 0.8 10^3/uL (0.8-4.8); Lymphocytes % 4.3 %; Mean Corpuscular HGB Conc 30.4 g/dL (30-55); Mean Corpuscular Hemoglobin 28.9 pg (27-33); Mean Corpuscular Volume 94.8 fl (85-98); Mean Platelet Volume 10.4 fL (7.4-10.4); Monocytes # 0.8 10^3/uL (0.2-0.9); Monocytes % 4.4 %; Neutrophils # 16.29 10^3/uL (1.8-7.7); Neutrophils % 89.7 %; Nucleated Red Blood Cells % 0 %; Platelet Count 278 10^3/cmm (157-399); Red Blood Count 4.02 10^6/uL (3.85-5.65); Red Cell Distribution Width 14.6 % (12.1-15.1); White Blood Count 18.14 10^3/uL (3.29-11.43)
[2024-11-07 05:30] LABS: Alanine Aminotransferase 14 U/L (0-33); Albumin Level 3.7 g/dL (3.5-5.2); Alkaline Phosphatase 89 U/L (35-105); Anion Gap 15.5 (5-19); Aspartate Amino Transferase 22 U/L (0-32); Blood Urea Nitrogen 32 mg/dL (6-20); Calcium 9.2 mg/dL (8.5-10.5); Carbon Dioxide 28 mmol/L (22-29); Chloride 101 mmol/L (98-107); Creatinine Clr Calc Pharmacy 86.0771; Glomerular Filtration Rate 76.2 mL/min (90-130); Glucose 144 mg/dL (65-115); Osmolality Calculated 299 mOsm/kg (285-295); Potassium 4.5 mmol/L (3.5-5.1); Sodium 140 mmol/L (136-145); Total Bilirubin 0.2 mg/dL (0.15-1.2); Total Protein 6.7 g/dL (6.6-8.7)
[2024-11-07] MEDS: levothyroxine 75 mcg Tablet PO (06:05)
[2024-11-07] MEDS: methylPREDNISolone sod succ 125 mg/2 mL INJ 60 MG IVP ×4 (06:05→23:57)
[2024-11-07] MEDS: cefTRIAXone 1,000 mg SDV 1000 MG IVP (06:53)
[2024-11-07] MEDS: budesonide 0.5 mg/2 mL Neb INHALATION ×2 (07:38→20:58)
[2024-11-07] MEDS: cloNIDine 0.1 mg Tablet PO ×2 (08:19→17:02)
[2024-11-07] MEDS: lisinopril 20 mg Tablet PO (08:19)
[2024-11-07] MEDS: benzonatate 100 mg Capsule 200 MG PO ×3 (08:19→23:57)
[2024-11-07] MEDS: citalopram 20 mg Tablet PO (08:19)
[2024-11-07] MEDS: azithromycin 250 MG in sodium chloride 0.9% 250 ML IV (08:19)
[2024-11-07] MEDS: guaiFENesin-dextromethorphan UDC 10 mL PO ×3 (08:19→23:57)
--- NOTE | 2024-11-07 09:00 | ECG_ITS ---
[employer] Test Date: 2024-11-07 Pat Name: Yen Harding Department: Room: 256 Gender: Female Mobile Unit Assistant: : 1975 Requested By: Liborio Crawford Order Number: [id number] Reading MD: Gonzales Monge M.D. Measurements Intervals [place] Rate: 105 P: 0 CA: 0 QRS: 56 QRSD: 73 T: 62 QT: 325 QTc: 430 Interpretive Statements SINUS TACHYCARDIA possible left atrial enlargement ABNORMAL RHYTHM ECG Compared to ECG 11/05/2024 16:13:00 ST (T wave) deviation no longer present Electronically Signed On 11-08-2024 09:05:36 CDT by Gonzales Monge M.D. [email or web address]
--- NOTE | 2024-11-07 10:20 | PM.PN ---
Subjective Subjective: She feels she is gradually improving, she is still requiring oxygen, still wheezing, has been getting up and about a little bit. Vitals/I&O/Wt Last Vital Signs Temp 97.7 F 11/07/24 08:06 Pulse 111 H 11/07/24 08:06 Resp 16 11/07/24 08:06 BP 174/95 11/07/24 08:06 Pulse Ox 94 11/07/24 08:06 O2 Del Method Nasal Cannula 11/07/24 08:06 O2 Flow Rate 3.5 11/07/24 07:40 11/06/24 11/07/24 11/07/24 22:59 06:59 14:59 Intake Total 370 / 740 840 / 1580 730 / 730 Balance 370 / 740 840 / 1580 730 / 730 Weight last 48 hrs Weight 81.647 kg Weight 82.097 kg Weight 82.1 kg Physical Exam Narrative: Sleeping, wakes up to voice and shoulder touch. Const: COMMON NORMALS: patient oriented x3 and alert GENERAL APPEARANCE: cooperative ORIENTATION/CONSCIOUSNESS: Yes awake HENMT: COMMON NORMALS: oropharynx normal Neck/C-Spine: COMMON NORMALS: no JVD Resp: AUSCULTATION: wheezes and diminished lung sounds (mild-mod) Cardio: COMMON NORMALS: no JVD, regular rhythm, S1 normal heart sound present, S2 normal heart sound present and No murmurs present (Cardio) RHYTHM: regular rhythm HEART SOUNDS: S1 normal heart sound present and S2 normal heart sound present GI: COMMON NORMALS: Normal to inspection, nondistended, normoactive bowel sounds present, Soft to palpation and non-tender PALPATION: Yes Soft to palpation Extremity: COMMON NORMALS: no joint enlargement and no pedal edema Neuro: COMMON NORMALS: patient oriented x3 and moves all extremities SENSORIUM/ORIENTATION: Yes alert Skin: COMMON NORMALS: no rashes or lesions noted GENERAL SKIN EXAM: no rashes or lesions noted Data 11/07/24 04:41 11/07/24 04:41 Micro: Microbiology 11/05/24 10:10 Blood Culture - Preliminary Blood NEGATIVE TO DATE 11/05/24 10:12 Blood Culture - Preliminary Blood NEGATIVE TO DATE A&P Assessment and plan (1) Acute respiratory failure with hypoxia: Still requiring oxygen, 3.5 L by nasal cannula. Still wheezing and diminished air entry. Not previously on oxygen. Continue oxygen support, wean down as tolerating. Discussed with her continuation of IV steroids at this time for bronchospastic disease with moderate to severe asthma exacerbation, pneumonia, reviewed vitals, CBC, CMP, respiratory viral panel was negative. Noted leukocytosis today up to 18,000, continue Penaloza empiric coverage with ceftriaxone azithromycin for concomitant pneumonia, although leukocytosis rise as discussed with her may be also secondary to corticosteroids. Monitor for risk of hyperglycemia, pretension, gastritis, encephalopathy with IV corticosteroids. Reviewed EKG atrial flutter read on automatic read, but sinus rhythm on EKG on my interpretation, pending official read. As needed antitussive. Discussed with respiratory, nursing, correctional counselor/case manager. Reviewed echocardiogram, noted grade 1 diastolic dysfunction. (2) Asthma with exacerbation: As above. Moderate to severe asthma exacerbation with tachypnea, hypoxia, diminished air entry, wheezing, respiratory failure. She has ran out of her Advair about 2 weeks ago. As well as has ran out of her rescue inhaler. She denies symptomatic environmental allergies, although it has been high pollen recently. She denies febrile illness or any sick contacts recently at home. She does not follow with copywriter yet, she is in process of working on setting up Medicaid and is planning to subsequently set up with pulmonology. Discussed with correctional counselor/case manager, they are provided her with Medicaid application. She will benefit from Advair refill if possible at discharge. Initially avoiding benzodiazepine, however, with significant anxiety associated with the asthma exacerbation respiratory failure, cautiously adding 0.5 mg Xanax as needed every 6 hours until symptoms start improving. Dose may need to be increased depending on response, discussed with nursing -avoid if any somnolence. Plan Trop elevation: Reviewed troponin series, noted positive delta 17, up to highest troponin 50.95, at 6 hours down to 35. Reviewed TTE. Suspected demand ischemia. May have some underlying undiagnosed coronary disease. Suspect demand ischemia secondary to respiratory failure, but may benefit from further risk stratification. 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 He is in the process of quitting. Her has been in rehabilitation as well and states has not had any use in the last 90 days having achieved the milestone. Patient currently using intermittently states about every 2 weeks. Denies any IV use. Discussed with her additional assessment with hepatitis panel and HIV, she is agreeable. Encouraged cessation, discussed severe risks associated with use and she verbalized understanding. Hypothyroidism: She has run out of levothyroxine at home. Normally used 75 mcg daily. Resume. Depression: She has run out of citalopram and in the past also was on Wellbutrin. Resumed citalopram. PDMP PDMP Reviewed: Not Reviewed Attestations Medical Necessity Statement*: Continue admission for assessment management of acute respiratory failure with hypoxia, moderate to severe asthma exacerbation, bilateral pneumonia. and High MDM includes amount and/or complexity of data reviewed/ordered [ resulted lab(s)/test(s), ordered lab(s)/test(s) and other healthcare professional discussion] and described risk of complication, morbidity or mortality of management as documented Diagnoses Acute respiratory failure with hypoxia J96.01 Asthma with exacerbation J45.901
[2024-11-07] MEDS: enoxaparin 40 mg/0.4 mL Syringe SUBCUT (12:50)
[2024-11-07] MEDS: acetaminophen 325 mg Tablet 650 MG PO (23:57)
[2024-11-08] VITALS (17 sets, daily range): BP systolic 154–187; BP diastolic 66–115; PULSE 77–116; RESP 14–26; TEMP 36.4–37.3; O2SAT 93–96; BMI 31.8
[2024-11-08] MEDS: ipratropium-albuterol 3 mL Neb INHALATION ×6 (01:23→20:15)
[2024-11-08] MEDS: methylPREDNISolone sod succ 125 mg/2 mL INJ 60 MG IVP ×4 (05:11→23:51)
[2024-11-08] MEDS: cloNIDine 0.1 mg Tablet PO ×2 (05:12→17:09)
[2024-11-08] MEDS: levothyroxine 75 mcg Tablet PO (05:12)
--- NOTE | 2024-11-08 05:15 | PC.NURSE ---
patients morning blood pressure was 165/100. dr conroy notified, he ordered for her to have her 9am clonidine NOW. 0.1mg clonidine po given per dr gipson
[2024-11-08] MEDS: cefTRIAXone 1,000 mg SDV 1000 MG IVP (06:25)
--- NOTE | 2024-11-08 08:08 | PM.PN ---
Subjective Subjective: She has still been coughing quite a bit through the night making it difficult for her to sleep. She is now producing some phlegm and feels she may be able to provide us with a sample. This morning she choked while eating breakfast, she states with a dry potato, not having any water nearby. She was coughing afterwards, requests for change of bedding. She was able to cough it up and she is feeling better this, but otherwise has had a slow recovery. Still gets quite short of breath while getting up and walking. Vitals/I&O/Wt Last Vital Signs Temp 98.0 F 11/08/24 05:39 Pulse 106 H 11/08/24 05:39 Resp 14 11/08/24 05:39 BP 165/100 11/08/24 05:39 Pulse Ox 95 11/08/24 05:39 O2 Del Method Nasal Cannula 11/08/24 04:15 O2 Flow Rate 3 11/08/24 05:39 11/07/24 11/08/24 11/08/24 22:59 06:59 14:59 Intake Total 840 / 0 440 / 2490 Balance 840 / 0 440 / 2490 Weight last 48 hrs Weight 81.647 kg Weight 81.647 kg Physical Exam Narrative: Sleeping, wakes up to voice and shoulder touch. Const: COMMON NORMALS: patient oriented x3 and alert GENERAL APPEARANCE: cooperative ORIENTATION/CONSCIOUSNESS: Yes awake HENMT: COMMON NORMALS: oropharynx normal Neck/C-Spine: COMMON NORMALS: no JVD Resp: AUSCULTATION: wheezes and diminished lung sounds (mild-mod) Cardio: COMMON NORMALS: no JVD, regular rhythm, S1 normal heart sound present, S2 normal heart sound present and No murmurs present (Cardio) RHYTHM: regular rhythm HEART SOUNDS: S1 normal heart sound present and S2 normal heart sound present GI: COMMON NORMALS: Normal to inspection, nondistended, normoactive bowel sounds present, Soft to palpation and non-tender PALPATION: Yes Soft to palpation Extremity: COMMON NORMALS: no joint enlargement and no pedal edema Neuro: COMMON NORMALS: patient oriented x3 and moves all extremities SENSORIUM/ORIENTATION: Yes alert Skin: COMMON NORMALS: no rashes or lesions noted GENERAL SKIN EXAM: no rashes or lesions noted Data 11/08/24 08:45 04/18/25 08:45 A&P Assessment and plan (1) Acute respiratory failure with hypoxia: Oxygenation requirement with very slow improvement, she is coming down to about 2-1/2 L requirement nasal cannula oxygen support. She has had rather slow progress. She is still having bothersome cough at night, she is not producing some phlegm. Requesting sputum culture as well as MRSA PCR. Discussed with her scheduling antitussive with Tessalon, as well as keeping Robitussin as needed. As she is still having wheezing, diminished air entry, bronchospastic disease, at this time discussed continuation of IV steroid Solu-Medrol in addition to breathing treatments, as well as continue treatment for pneumonia with ceftriaxone and azithromycin, although if no further improvement by tomorrow, 72 hours, consider adjustment of antibiotic and/or adjustment based on sputum culture once available. Monitor for risk of hyperglycemia, pretension, gastritis, encephalopathy with IV corticosteroids. This morning she had also had an episode of choking while eating breakfast on which she states was a dry potato without having drink nearby, she denies having recurrent aspiration, she had coughed up the contents she was aspirating on, however, as she is producing phlegm, will add flutter valve to assist with clearance. Additionally will request speech therapy to assess her. She additionally feels she may have cracked a rib , is bothered by mild pain and chest wall with breathing, discussed with her adding incentive spirometer, she is familiar with it since has 1 at home. Lab studies are not available this morning due to difficulty with blood draw as per discussion with her. Per discussion with case management social worker, private pay oxygen has been looked into for her and she is unable to afford it. (2) Asthma with exacerbation: As above. Moderate to severe asthma exacerbation with tachypnea, hypoxia, diminished air entry, wheezing, respiratory failure. She has ran out of her Advair about 2 weeks ago. As well as has ran out of her rescue inhaler. She denies symptomatic environmental allergies, although it has been high pollen recently. She denies febrile illness or any sick contacts recently at home. She does not follow with plastic top assembler yet, she is in process of working on setting up Medicaid and is planning to subsequently set up with pulmonology. Discussed with case management social worker, they are provided her with Medicaid application. She will benefit from Advair refill if possible at discharge. Initially avoiding benzodiazepine, however, with significant anxiety associated with the asthma exacerbation respiratory failure, cautiously adding 0.5 mg Xanax as needed every 6 hours until symptoms start improving. Dose may need to be increased depending on response, discussed with nursing -avoid if any somnolence. Plan Trop elevation: Reviewed troponin series, noted positive delta 17, up to highest troponin 50.95, at 6 hours down to 35. Reviewed TTE. Suspected demand ischemia. May have some underlying undiagnosed coronary disease. Suspect demand ischemia secondary to respiratory failure, but may benefit from further risk stratification. 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 He is in the process of quitting. Her has been in rehabilitation as well and states has not had any use in the last 90 days having achieved the milestone. Patient currently using intermittently states about every 2 weeks. Denies any IV use. Discussed with her additional assessment with hepatitis panel and HIV, she is agreeable. Encouraged cessation, discussed severe risks associated with use and she verbalized understanding. Hypothyroidism: She has run out of levothyroxine at home. Normally used 75 mcg daily. Resume. Depression: She has run out of citalopram and in the past also was on Wellbutrin. Resumed citalopram. PDMP PDMP Reviewed: Not Reviewed Attestations Medical Necessity Statement*: Continue admission for assessment management of acute respiratory failure with hypoxia, moderate to severe asthma exacerbation, bilateral pneumonia. and High MDM includes amount and/or complexity of data reviewed/ordered [ resulted lab(s)/test(s), ordered lab(s)/test(s) and other healthcare professional discussion] and described risk of complication, morbidity or mortality of management as documented Diagnoses Acute respiratory failure with hypoxia J96.01 Asthma with exacerbation J45.901
[2024-11-08] MEDS: budesonide 0.5 mg/2 mL Neb INHALATION ×2 (08:44→20:15)
[2024-11-08 09:02] LABS: Basophils % 0.2 %; Lymphocytes # 0.6 10^3/uL (0.8-4.8); Lymphocytes % 4.1 %; Mean Corpuscular HGB Conc 31.6 g/dL (30-55); Mean Corpuscular Hemoglobin 29.3 pg (27-33); Mean Corpuscular Volume 92.9 fl (85-98); Mean Platelet Volume 10.2 fL (7.4-10.4); Monocytes # 0.5 10^3/uL (0.2-0.9); Monocytes % 3.2 %; Neutrophils # 13.09 10^3/uL (1.8-7.7); Neutrophils % 89.2 %; Nucleated Red Blood Cells % 0 %; Platelet Count 271 10^3/cmm (157-399); Red Blood Count 4.09 10^6/uL (3.85-5.65); Red Cell Distribution Width 14.5 % (12.1-15.1); White Blood Count 14.67 10^3/uL (3.29-11.43)
[2024-11-08 09:16] LABS: Alanine Aminotransferase 15 U/L (0-33); Albumin Level 3.6 g/dL (3.5-5.2); Alkaline Phosphatase 79 U/L (35-105); Anion Gap 14.2 (5-19); Aspartate Amino Transferase 15 U/L (0-32); Blood Urea Nitrogen 31 mg/dL (6-20); Calcium 9.2 mg/dL (8.5-10.5); Carbon Dioxide 28 mmol/L (22-29); Chloride 99 mmol/L (98-107); Creatinine Clr Calc Pharmacy 86.0771; Globulin 2.8 g/dL (1.3-4.6); Glomerular Filtration Rate 76.2 mL/min (90-130); Glucose 198 mg/dL (65-115); Osmolality Calculated 296 mOsm/kg (285-295); Potassium 4.2 mmol/L (3.5-5.1); Sodium 137 mmol/L (136-145); Total Bilirubin 0.2 mg/dL (0.15-1.2); Total Protein 6.4 g/dL (6.6-8.7)
[2024-11-08] MEDS: citalopram 20 mg Tablet PO (09:16)
[2024-11-08] MEDS: benzonatate 100 mg Capsule 200 MG PO ×3 (09:16→21:29)
[2024-11-08] MEDS: guaiFENesin-dextromethorphan UDC 10 mL PO ×2 (09:16→21:29)
[2024-11-08] MEDS: lisinopril 20 mg Tablet PO (09:17)
[2024-11-08] MEDS: carvedilol 3.125 mg Tablet PO ×2 (09:19→17:09)
[2024-11-08] MEDS: azithromycin 250 MG in sodium chloride 0.9% 250 ML IV (09:53)
[2024-11-08] MEDS: ALPRAZolam 0.5 mg Tablet PO ×3 (10:46→22:16)
[2024-11-08] MEDS: enoxaparin 40 mg/0.4 mL Syringe SUBCUT (12:18)
[2024-11-08 19:34] LABS: MRSA PCR OZH (swab) MRSA Detected (Not Detecte)
[2024-11-09] VITALS (21 sets, daily range): BP systolic 163–172; BP diastolic 84–103; PULSE 83–100; RESP 16–21; TEMP 36.4–36.7; O2SAT 93–97
[2024-11-09] MEDS: ipratropium-albuterol 3 mL Neb INHALATION ×7 (00:23→23:43)
[2024-11-09 05:31] LABS: Basophils # 0.1 10^3/uL (0.0-0.1); Basophils % 0.4 %; Eosinophils % 0.1 %; Hematocrit 39.6 % (36-47); Lymphocytes % 6.7 %; Mean Corpuscular HGB Conc 31.6 g/dL (30-55); Mean Corpuscular Hemoglobin 29.2 pg (27-33); Mean Corpuscular Volume 92.5 fl (85-98); Mean Platelet Volume 10.1 fL (7.4-10.4); Monocytes # 0.6 10^3/uL (0.2-0.9); Monocytes % 4.2 %; Neutrophils % 85.7 %; Nucleated Red Blood Cells % 0 %; Platelet Count 317 10^3/cmm (157-399); Red Blood Count 4.28 10^6/uL (3.85-5.65); Red Cell Distribution Width 14.1 % (12.1-15.1); White Blood Count 15.03 10^3/uL (3.29-11.43)
[2024-11-09 06:08] LABS: Anion Gap 11.3 (5-19); Blood Urea Nitrogen 34 mg/dL (6-20); Carbon Dioxide 30 mmol/L (22-29); Chloride 99 mmol/L (98-107); Creatinine Clr Calc Pharmacy 98.3739; Glomerular Filtration Rate 88.9 mL/min (90-130); Glucose 171 mg/dL (65-115); Osmolality Calculated 294 mOsm/kg (285-295); Potassium 4.3 mmol/L (3.5-5.1); Sodium 136 mmol/L (136-145)
[2024-11-09] MEDS: methylPREDNISolone sod succ 125 mg/2 mL INJ 60 MG IVP ×3 (06:19→22:37)
[2024-11-09] MEDS: levothyroxine 75 mcg Tablet PO (06:19)
[2024-11-09] MEDS: azithromycin 250 MG in sodium chloride 0.9% 250 ML IV (08:29)
[2024-11-09] MEDS: cefTRIAXone 1,000 mg SDV 1000 MG IVP (08:30)
[2024-11-09] MEDS: benzonatate 100 mg Capsule 200 MG PO ×2 (08:31→21:08)
[2024-11-09] MEDS: citalopram 20 mg Tablet PO (08:31)
[2024-11-09] MEDS: cloNIDine 0.1 mg Tablet PO ×2 (08:31→17:21)
[2024-11-09] MEDS: lisinopril 20 mg Tablet PO (08:31)
[2024-11-09] MEDS: carvedilol 3.125 mg Tablet PO ×2 (08:31→17:21)
[2024-11-09] MEDS: budesonide 0.5 mg/2 mL Neb INHALATION ×2 (08:36→20:43)
[2024-11-09] MEDS: ALPRAZolam 0.5 mg Tablet PO ×2 (10:30→21:08)
--- NOTE | 2024-11-09 13:42 | PM.PN ---
Subjective Subjective: Seen her at bedside this morning. Denies any complaint of shortness of breath or chest pain, reports feeling better as compared to arrival to the hospital. Medications: Reviewed: Yes Vitals/I&O/Wt Last Vital Signs Temp 97.8 F 11/09/24 11:34 Pulse 89 11/09/24 12:03 Resp 20 H 11/09/24 12:00 BP 170/92 11/09/24 11:34 Pulse Ox 93 11/09/24 12:00 O2 Del Method Nasal Cannula 11/09/24 12:00 O2 Flow Rate 2 11/09/24 12:00 11/08/24 11/09/24 11/09/24 22:59 06:59 14:59 Intake Total 118 / 468 1210 / 1210 Balance 118 / 468 1210 / 1210 Weight last 48 hrs Weight 87.9 kg Weight 81.647 kg Physical Exam Narrative: Sleeping, wakes up to voice and shoulder touch. Const: COMMON NORMALS: patient oriented x3 and alert GENERAL APPEARANCE: cooperative ORIENTATION/CONSCIOUSNESS: Yes awake HENMT: COMMON NORMALS: oropharynx normal Neck/C-Spine: COMMON NORMALS: no JVD Resp: AUSCULTATION: diminished lung sounds (mild-mod) Cardio: COMMON NORMALS: no JVD, regular rhythm, S1 normal heart sound present, S2 normal heart sound present and No murmurs present (Cardio) RHYTHM: regular rhythm HEART SOUNDS: S1 normal heart sound present and S2 normal heart sound present GI: COMMON NORMALS: Normal to inspection, nondistended, normoactive bowel sounds present, Soft to palpation and non-tender PALPATION: Yes Soft to palpation Extremity: COMMON NORMALS: no joint enlargement and no pedal edema Neuro: COMMON NORMALS: patient oriented x3 and moves all extremities SENSORIUM/ORIENTATION: Yes alert Skin: COMMON NORMALS: no rashes or lesions noted GENERAL SKIN EXAM: no rashes or lesions noted Data 11/09/24 05:09 11/09/24 05:09 A&P Assessment and plan (1) Acute respiratory failure with hypoxia: Oxygenation requirement with very slow improvement, she is coming down to about 2-1/2 L requirement nasal cannula oxygen support. She has had rather slow progress. She is still having bothersome cough at night, she is not producing some phlegm. Requesting sputum culture as well as MRSA PCR. Discussed with her scheduling antitussive with Tessalon, as well as keeping Robitussin as needed. As she is still having wheezing, diminished air entry, bronchospastic disease, at this time discussed continuation of IV steroid Solu-Medrol in addition to breathing treatments, as well as continue treatment for pneumonia with ceftriaxone and azithromycin, although if no further improvement by tomorrow, 72 hours, consider adjustment of antibiotic and/or adjustment based on sputum culture once available. Monitor for risk of hyperglycemia, pretension, gastritis, encephalopathy with IV corticosteroids. This morning she had also had an episode of choking while eating breakfast on which she states was a dry potato without having drink nearby, she denies having recurrent aspiration, she had coughed up the contents she was aspirating on, however, as she is producing phlegm, will add flutter valve to assist with clearance. Additionally will request speech therapy to assess her. She additionally feels she may have cracked a rib , is bothered by mild pain and chest wall with breathing, discussed with her adding incentive spirometer, she is familiar with it since has 1 at home. Lab studies are not available this morning due to difficulty with blood draw as per discussion with her. Per discussion with case supervisor, private pay oxygen has been looked into for her and she is unable to afford it. (2) Asthma with exacerbation: As above. Moderate to severe asthma exacerbation with tachypnea, hypoxia, diminished air entry, wheezing, respiratory failure. She has ran out of her Advair about 2 weeks ago. As well as has ran out of her rescue inhaler. She denies symptomatic environmental allergies, although it has been high pollen recently. She denies febrile illness or any sick contacts recently at home. She does not follow with green prize packer yet, she is in process of working on setting up Medicaid and is planning to subsequently set up with pulmonology. Discussed with case supervisor, they are provided her with Medicaid application. She will benefit from Advair refill if possible at discharge. Initially avoiding benzodiazepine, however, with significant anxiety associated with the asthma exacerbation respiratory failure, cautiously adding 0.5 mg Xanax as needed every 6 hours until symptoms start improving. Dose may need to be increased depending on response, discussed with nursing -avoid if any somnolence. Plan Trop elevation: Reviewed troponin series, noted positive delta 17, up to highest troponin 50.95, at 6 hours down to 35. Reviewed TTE. Suspected demand ischemia. May have some underlying undiagnosed coronary disease. Suspect demand ischemia secondary to respiratory failure, but may benefit from further risk stratification. 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 sHe is in the process of quitting. Her has been in rehabilitation as well and states has not had any use in the last 90 days having achieved the milestone. Patient currently using intermittently states about every 2 weeks. Denies any IV use. Discussed with her additional assessment with hepatitis panel and HIV, she is agreeable. Encouraged cessation, discussed severe risks associated with use and she verbalized understanding. Hypothyroidism: She has run out of levothyroxine at home. Normally used 75 mcg daily. Resume. Depression: She has run out of citalopram and in the past also was on Wellbutrin. Resumed citalopram. 11/09/24 Acute hypoxic respiratory failure secondary to asthma exacerbation improving. Continue current management Follow-up with case management on Monday [facility] for medicaid and PCP and discharge planning. PDMP PDMP Reviewed: Not Reviewed Attestations Medical Necessity Statement*: Continue admission for assessment management of acute respiratory failure with hypoxia, moderate to severe asthma exacerbation,which is improving bilateral pneumonia. Time Spent in Patient Care: 20minutes Coding Level of Care Code Acute Code for [facility] Fwd Diagnoses Acute respiratory failure with hypoxia J96.01 Asthma with exacerbation J45.901 Time Spent (min) 20
[2024-11-09] MEDS: enoxaparin 40 mg/0.4 mL Syringe SUBCUT (14:52)
--- NOTE | 2024-11-09 18:58 | PC.NURSE ---
during evening med pass this nurse entered pts room, pts s/o was aggressively scratching tops of pts feet at her request. she then requested him to use the plastic and or metal fork to continue scratching the tops of her feet. I told pt that this behavior is not something that she needs to be doing or have him do. the risks of breaking the skin and infection. pts s/o then threw the plastic fork in the trash. dinner tray with all utensils was removed from pts room.
[2024-11-09] MEDS: guaiFENesin 600 mg Tablet PO (21:08)
--- NOTE | 2024-11-09 23:44 | PC.NURSE ---
Patient is hypertensive at 2330 rounds. Blood pressure 166/103, heart rate 101. Patient has been consistently hypertensive while she has been here. Dr. Negrete notified of increasing blood pressure. Physician ordered 5mg Amlodipine PO Q24h to start now. Plan of care ongoing.
[2024-11-10] VITALS (18 sets, daily range): BP systolic 160–190; BP diastolic 93–115; PULSE 76–113; RESP 18–28; TEMP 36.5–36.8; O2SAT 89–97
[2024-11-10] MEDS: amlodipine 5 mg Tablet PO ×3 (00:22→08:50)
[2024-11-10] MEDS: acetaminophen 325 mg Tablet 650 MG PO (01:51)
[2024-11-10] MEDS: guaiFENesin-dextromethorphan UDC 10 mL PO ×2 (01:54→20:38)
[2024-11-10] MEDS: ipratropium-albuterol 3 mL Neb INHALATION ×6 (03:14→23:46)
[2024-11-10] MEDS: levothyroxine 75 mcg Tablet PO (05:03)
[2024-11-10] MEDS: methylPREDNISolone sod succ 125 mg/2 mL INJ 60 MG IVP (06:13)
[2024-11-10] MEDS: budesonide 0.5 mg/2 mL Neb INHALATION ×2 (08:36→20:34)
[2024-11-10] MEDS: carvedilol 3.125 mg Tablet PO ×2 (08:50→16:27)
[2024-11-10] MEDS: cloNIDine 0.1 mg Tablet PO ×2 (08:50→16:26)
[2024-11-10] MEDS: benzonatate 100 mg Capsule 200 MG PO ×3 (08:50→20:17)
[2024-11-10] MEDS: citalopram 20 mg Tablet PO (08:51)
[2024-11-10] MEDS: lisinopril 20 mg Tablet PO (08:51)
[2024-11-10] MEDS: ALPRAZolam 0.5 mg Tablet PO ×2 (08:54→23:56)
--- NOTE | 2024-11-10 11:15 | PM.DCS ---
Discharge Providers Date of Admission: 11/05/24 11:48 Date of Discharge: November 10, 2024 Attending Provider at Admission: Liborio Crawford Attending Provider at Discharge: Liborio Crawford Diagnoses at Discharge Discharge Diagnosis (1) Acute respiratory failure with hypoxia: Status: Acute (2) Asthma with exacerbation: Status: Acute Reason for Visit Reason for Visit: Resp Distress Brief History: The patient with a history of asthma, hypertension, depression, and hypothyroidism presents with an acute exacerbation of asthma over the past few days. They report increased shortness of breath accompanied by a dry cough (without phlegm), wheezing, and chest tightness that worsened last night. The patient also experienced fever, chills, sore throat, and a runny nose. Mild nausea (likely related to nitroglycerin administration in the ambulance) and a current mild headache were noted. The patient mentioned that such exacerbations occur about three to four times a year and recalled a hospital admission for pneumonia in April. At home, they use an albuterol inhaler and a nebulizer but are now out of several patel medications. On evaluation in ER she is found to be in respiratory failure, respiratory in the 30s, saturations down to 87, was started on nonrebreather oxygen, ABG pO2 163 on 12 L on nonrebreather. Hospital Course Hospital Course Assessment and plan (1) Acute respiratory failure with hypoxia: Oxygenation requirement with very slow improvement, she is coming down to about 2-1/2 L requirement nasal cannula oxygen support. She has had rather slow progress. She is still having bothersome cough at night, she is not producing some phlegm. Requesting sputum culture as well as MRSA PCR. Discussed with her scheduling antitussive with Tessalon, as well as keeping Robitussin as needed. As she is still having wheezing, diminished air entry, bronchospastic disease, at this time discussed continuation of IV steroid Solu-Medrol in addition to breathing treatments, as well as continue treatment for pneumonia with ceftriaxone and azithromycin, although if no further improvement by tomorrow, 72 hours, consider adjustment of antibiotic and/or adjustment based on sputum culture once available. Monitor for risk of hyperglycemia, pretension, gastritis, encephalopathy with IV corticosteroids. This morning she had also had an episode of choking while eating breakfast on which she states was a dry potato without having drink nearby, she denies having recurrent aspiration, she had coughed up the contents she was aspirating on, however, as she is producing phlegm, will add flutter valve to assist with clearance. Additionally will request speech therapy to assess her. She additionally feels she may have cracked a rib , is bothered by mild pain and chest wall with breathing, discussed with her adding incentive spirometer, she is familiar with it since has 1 at home. Lab studies are not available this morning due to difficulty with blood draw as per discussion with her. Per discussion with casework manager, private pay oxygen has been looked into for her and she is unable to afford it. (2) Asthma with exacerbation: As above. Moderate to severe asthma exacerbation with tachypnea, hypoxia, diminished air entry, wheezing, respiratory failure. She has ran out of her Advair about 2 weeks ago. As well as has ran out of her rescue inhaler. She denies symptomatic environmental allergies, although it has been high pollen recently. She denies febrile illness or any sick contacts recently at home. She does not follow with technical system analyst yet, she is in process of working on setting up Medicaid and is planning to subsequently set up with pulmonology. Discussed with casework manager, they are provided her with Medicaid application. She will benefit from Advair refill if possible at discharge. Initially avoiding benzodiazepine, however, with significant anxiety associated with the asthma exacerbation respiratory failure, cautiously adding 0.5 mg Xanax as needed every 6 hours until symptoms start improving. Dose may need to be increased depending on response, discussed with nursing -avoid if any somnolence. Plan Trop elevation: Reviewed troponin series, noted positive delta 17, up to highest troponin 50.95, at 6 hours down to 35. Reviewed TTE. Suspected demand ischemia. May have some underlying undiagnosed coronary disease. Suspect demand ischemia secondary to respiratory failure, but may benefit from further risk stratification. 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 sHe is in the process of quitting. Her has been in rehabilitation as well and states has not had any use in the last 90 days having achieved the milestone. Patient currently using intermittently states about every 2 weeks. Denies any IV use. Discussed with her additional assessment with hepatitis panel and HIV, she is agreeable. Encouraged cessation, discussed severe risks associated with use and she verbalized understanding. Hypothyroidism: She has run out of levothyroxine at home. Normally used 75 mcg daily. Resume. Depression: She has run out of citalopram and in the past also was on Wellbutrin. Resumed citalopram. 11/09/24 Acute hypoxic respiratory failure secondary to asthma exacerbation improving. Follow-up with case management on Monday forsetting up for medicaid and PCP and discharge planning. Continue current management 11/10/24 Acute hypoxic failure resolved.Can set up for medicaid and PCP set up as outpatient. will discharge her home today with po antibiotics and steroid taper. Physical Exam Narrative: Sleeping, wakes up to voice and shoulder touch. Const: COMMON NORMALS: patient oriented x3 and alert GENERAL APPEARANCE: cooperative ORIENTATION/CONSCIOUSNESS: Yes awake HENMT: COMMON NORMALS: oropharynx normal Neck/C-Spine: COMMON NORMALS: no JVD Resp: AUSCULTATION: diminished lung sounds (mild-mod) Cardio: COMMON NORMALS: no JVD, regular rhythm, S1 normal heart sound present, S2 normal heart sound present and No murmurs present (Cardio) RHYTHM: regular rhythm HEART SOUNDS: S1 normal heart sound present and S2 normal heart sound present GI: COMMON NORMALS: Normal to inspection, nondistended, normoactive bowel sounds present, Soft to palpation and non-tender PALPATION: Yes Soft to palpation Extremity: COMMON NORMALS: no joint enlargement and no pedal edema Neuro: COMMON NORMALS: patient oriented x3 and moves all extremities SENSORIUM/ORIENTATION: Yes alert Skin: COMMON NORMALS: no rashes or lesions noted GENERAL SKIN EXAM: no rashes or lesions noted Discharge Data Studies Completed and Pending Completed Studies During Hospitalization Category Date Time Status CTA chest [CT angio chest PE protcl [id number]] Routine Cat Scan 11/05/24 13:59 Completed XR chest 1V portable [id number] Stat Exams 11/05/24 11:36 Completed CV. echo complete* [id number] Routine Ultrasound 11/05/24 15:28 Completed Pending at discharge Category Date Time Status Sputum Culture and Gram Stain Routine Lab 11/08/24 08:07 Uncollected Radiology Impressions Chest X-Ray 11/05/24 11:36 IMPRESSION: 1. Linear atelectasis or scarring suspected at the lung bases worse on the right. No definite consolidation noted. Chest CTA 11/05/24 13:59 IMPRESSION: 1. Bilateral pneumonia 2. Healing right rib fracture Laboratory Results WBC 15.03 10^3/uL (3.29-11.43) H 11/09/24 05:09 RBC 4.28 10^6/uL (3.85-5.65) 11/09/24 05:09 Hgb 12.50 g/dL (11.27-16.99) 11/09/24 05:09 Hct 39.6 % (36-47) 11/09/24 05:09 MCV 92.5 fl (85-98) 11/09/24 05:09 MCH 29.2 pg (27-33) 11/09/24 05:09 MCHC 31.6 g/dL (30-55) 11/09/24 05:09 RDW 14.1 % (12.1-15.1) 11/09/24 05:09 Plt Count 317 10^3/cmm (157-399) 11/09/24 05:09 MPV 10.1 fL (7.4-10.4) 11/09/24 05:09 Neut % (Auto) 85.7 % 11/09/24 05:09 Lymph % (Auto) 6.7 % 11/09/24 05:09 Boundary % (Auto) 4.2 % 11/09/24 05:09 Eos % (Auto) 0.1 % 11/09/24 05:09 Baso % (Auto) 0.4 % 11/09/24 05:09 Neut # (Auto) 12.90 10^3/uL (1.8-7.7) H 11/09/24 05:09 Lymph # (Auto) 1.0 10^3/uL (0.8-4.8) 11/09/24 05:09 Boundary # (Auto) 0.6 10^3/uL (0.2-0.9) 11/09/24 05:09 Eos # (Auto) 0.0 10^3/uL (0.0-0.8) 11/09/24 05:09 Baso # (Auto) 0.1 10^3/uL (0.0-0.1) 11/09/24 05:09 Nucleated RBC % (auto) 0 % 11/09/24 05:09 Nucleated RBCs # 0.0 /100WBC 11/09/24 05:09 D-Dimer 0.88 ug/mLFEU (0-0.59) H 11/05/24 10:12 Specimen Type Arterial 11/05/24 16:10 Sample Site Radial, right 11/05/24 16:10 ABG pH 7.36 (7.35-7.45) 11/05/24 16:10 ABG pCO2 47.0 mmHg (35-45) H 11/05/24 16:10 ABG pO2 133.0 mmHg (80.0-100.0) H 11/05/24 16:10 ABG PO2/FiO2 Ratio 302 11/05/24 16:10 ABG HCO3 26.2 mmol/L (22-26) H 11/05/24 16:10 ABG O2 Saturation > 99.1 11/05/24 09:50 ABG Base Excess 0.2 mmol/L (-2.0-2.0) 11/05/24 16:10 Sean Test Pos 11/05/24 16:10 A-a O2 Gradient 64.5 mmHg (5-10) H 11/05/24 09:50 Hematocrit 37.4 % (37-47) 11/05/24 16:10 Hgb O2 Saturation 97.8 % (95-100) 11/05/24 09:50 Carboxyhemoglobin 0.8 %THgb (0.4-20.1) 11/05/24 09:50 Methemoglobin 1.1 % (0.4-1.5) 11/05/24 09:50 Total Hemoglobin 12.9 g/dL (12-16) 11/05/24 09:50 Sodium 139.0 mmol/L (131-143) 11/05/24 09:50 Potassium 3.7 mmol/L (3.5-5.0) 11/05/24 09:50 Glucose 175.0 mg/dL (70-115) H 11/05/24 09:50 Ionized Calcium 1.2 mmol/L (1.1-1.4) 11/05/24 09:50 O2 Delivery Device Nc 11/05/24 16:10 O2 Liters/Min 6.0 % 11/05/24 16:10 FiO2 44.0 % 11/05/24 16:10 Human Resources Clerk ID Gd 11/05/24 16:10 Sodium 136 mmol/L (136-145) 11/09/24 05:09 Potassium 4.3 mmol/L (3.5-5.1) 11/09/24 05:09 Chloride 99 mmol/L (98-107) 11/09/24 05:09 Carbon Dioxide 30 mmol/L (22-29) H 11/09/24 05:09 Anion Gap 11.3 (5-19) 11/09/24 05:09 BUN 34 mg/dL (6-20) H 11/09/24 05:09 Creatinine 0.7 mg/dL (0.5-0.9) 11/09/24 05:09 GFR Calculation 88.9 mL/min (90-130) L 11/09/24 05:09 Glucose 171 mg/dL (65-115) H 11/09/24 05:09 POC Glucose 180 mg/dL (70-110) H 11/05/24 23:10 Calculated Osmolality 294 mOsm/kg (285-295) 11/09/24 05:09 Lactic Acid 1.2 mmol/L (0.5-2.2) 11/05/24 10:12 Calcium 9.0 mg/dL (8.5-10.5) 11/09/24 05:09 Magnesium 2.4 mg/dL (1.7-2.3) H 11/06/24 04:17 Total Bilirubin 0.2 mg/dL (0.15-1.2) 11/08/24 08:45 AST 15 U/L (0-32) 11/08/24 08:45 ALT 15 U/L (0-33) 11/08/24 08:45 Alkaline Phosphatase 79 U/L (35-105) 11/08/24 08:45 Troponin T Baseline 34 ng/L (0-10) H 11/05/24 10:12 Troponin T 120 Minute 50.95 ng/L (0-10) H 11/05/24 12:14 Delta Troponin T 16.95 ABS# (0-10) H* 11/05/24 12:14 Troponin T Hi Sens 6Hr 35.04 ng/L (0-10) H 11/05/24 16:42 Troponin T Hi Sens 6Hr Delta 1.04 ng/L (0-12) 11/05/24 16:42 Total Protein 6.4 g/dL (6.6-8.7) L 11/08/24 08:45 Albumin 3.6 g/dL (3.5-5.2) 11/08/24 08:45 Globulin 2.8 g/dL (1.3-4.6) 11/08/24 08:45 Urine Color Yellow (Yellow) 11/05/24 15:25 Urine Appearance Clear (CLEAR) 11/05/24 15:25 Urine pH 5.5 (5-7) 11/05/24 15:25 Ur Specific Campbell 1.018 (1.005-1.030) 11/05/24 15:25 Urine Protein 1+ (Negative) A 11/05/24 15:25 Urine Glucose (UA) Trace (Normal) H 11/05/24 15:25 Urine Ketones Trace (Negative) 11/05/24 15: Urine Blood Negative (Negative) 11/05/24: Urine Nitrate Negative (Negative) 11/05/24 15: Urine Bilirubin Negative (Negative) 11/05/24: Urine Urobilinogen 1.0 mg/dL (Negative) 11/05/24 15:25 Ur Leukocyte Esterase Negative (Negative) 11/05/24 15:25 Urine RBC 0-2 /hpf (0-2) 11/05/24 15:25 Urine WBC 0-5 /hpf (0-5) 11/05/24 15:25 Ur Squamous Epith Cells 0-5 /hpf (0-5) 11/05/24 15:25 Amorphous Sediment Not Reportable 11/05/24 15:25 Urine Bacteria None seen /hpf (NONE) 11/05/24 15: Hyaline Casts 2.87 /lpf 11/05/24 15:25 Nasal MRSA (PCR) Mrsa detected (Not Detecte) A 11/08/24 17:55 Adenovirus (PCR) Not detected (NOT DETECT) 11/06/24 08:25 C. pneumoniae DNA (PCR) Not detected (NOT DETECT) 11/06/24 08:25 Coronavirus 229E (PCR) Not detected (NOT DETECT) 11/06/24 08:25 Hepatitis A IgM Ab Non-reactive (Nonreactive) 11/05/24 10:12 Hep Bs Antigen Non-reactive (Nonreactive) 11/05/24 10:12 Hep B Core IgM Ab Non-reactive (Nonreactive) 11/05/24 10:12 Hepatitis C Antibody Non-reactive (Nonreactive) 11/05/24 10:12 HIV 1&2 Ab & HIV 1 Ag Non-reactive (Non-Reactiv) 11/05/24 10:12 HIV 1&2 Antibody Non-reactive (Non-Reactiv) 11/05/24 10:12 Human Metapneumovir PCR Not detected (NOT DETECT) 11/06/24 08:25 Influenza A (H1) PCR Not detected (NOT DETECT) 11/06/24 08:25 Influenza A (PCR) Negative (Negative) 11/05/24 11:05 Influ A (H1/09) PCR Not detected (NOT DETECT) 11/06/24 08:25 Influenza A (H3) PCR Not detected (NOT DETECT) 11/06/24 08:25 Influenza Type A (PCR) Not detected (NOT DETECT) 11/06/24 08:25 Influenza Type B (PCR) Not detected (NOT DETECT) 11/06/24 08:25 M. pneumoniae (PCR) Not detected (NOT DETECT) 11/06/24 08:25 Parainfluenza 1 (PCR) Not detected (NOT DETECT) 11/06/24 08:25 Parainfluenza 2 (PCR) Not detected (NOT DETECT) 11/06/24 08:25 Parainfluenza 3 (PCR) Not detected (NOT DETECT) 11/06/24 08:25 Parainfluenza 4 (PCR) Not detected (NOT DETECT) 11/06/24 08:25 RSV (PCR) Negative (Negative) 11/05/24 11:05 RSV Type A (PCR) Not detected (NOT DETECT) 11/06/24 08:25 RSV Type B (PCR) Not detected (NOT DETECT) 11/06/24 08:25 Entero/Rhino (PCR) Not detected (NOT DETECT) 11/06/24 08:25 SARS-CoV-2 (PCR) Not detected (NOT DETECT) 11/06/24 08:25 Vitals Last Vital Signs Temp 98.1 F 11/10/24 07:21 Pulse 77 11/10/24 08:40 Resp 18 11/10/24 08:30 BP 160/99 11/10/24 08:50 Pulse Ox 96 11/10/24 08:30 O2 Del Method Nasal Cannula 11/10/24 08:30 O2 Flow Rate 2 11/10/24 08:30 Discharge Plan Discharge Patient Disposition: Home Condition: Stable Prescriptions: New clonidine HCl 0.1 mg Tablet 0.1 mg PO BID 30 Days Qty: 60 0RF ipratropium-albuterol 0.5 mg-3 mg(2.5 mg base)/3 mL Solution For Nebulization 3 ml inhalation Q4H.RESPIRATORY 5 Days Qty: 15 0RF lisinopril 20 mg Tablet 20 mg PO DAILY 30 Days Qty: 30 0RF amlodipine 5 mg Tablet 5 mg PO DAILY 30 Days Qty: 30 0RF carvedilol 3.125 mg Tablet 3.125 mg PO BID 30 Days Qty: 60 0RF levothyroxine 75 mcg Tablet 75 mcg PO QAM 90 Days Qty: 90 0RF citalopram 20 mg Tablet 20 mg PO DAILY 30 Days Qty: 30 0RF guaifenesin [Mucinex] 600 mg Tablet Extended Release 12hr 600 mg PO Q12H PRN (Reason: congestion) 10 Days Qty: 20 0RF azithromycin 500 mg tablet 500 mg PO DAILY 5 Days Qty: 5 0RF methylprednisolone [Medrol (Jeffrey)] 4 mg tablets,dose pack See Rx Instructions .ROUTE .COMPLEX Qty: 21 0RF Rx Instructions: for 6 days Continued albuterol sulfate 90 mcg/actuation HFA aerosol inhaler 1 puff inhalation Q6H PRN (Reason: shortness of breath or wheezing) 30 Days Qty: 8.5 0RF Discontinued guaifenesin 600 mg tablet extended release 12hr 600 mg PO Q12H PRN (Reason: congestion) 7 Days Qty: 14 0RF albuterol sulfate 2.5 mg /3 mL (0.083 %) solution for nebulization 2.5 mg inhalation .Q4-6H PRN (Reason: Shortness Of Breath) Discharge Orders: Discharge Order (Routine); Ordered 11/10/24 Ordered By: Melody Del Rio Referrals: Macarena Zepeda FNP [Nurse Practitioner] - 11/14/24 9:30 am (Hospital follow up and establish care. You will need to bring in bank statements or W2 or paycheck stubs or most recent taxes to see if you qualify for sliding scale. ) Discharge Diet: Cardiac Discharge Activity: Increase activity as tolerated Patient Instructions: Opioid Safety Discharge Attestations Time Spent in Discharge Care*: less than 30 min Quality Metrics Clinical Quality Measures [ No reported AMI, CVA or VTE this stay] Coding Level of Care Code Acute Code for [facility] Fwd Diagnoses Acute respiratory failure with hypoxia J96.01 Asthma with exacerbation J45.901 Time Spent (min) 20
[2024-11-10] MEDS: predniSONE 20 mg Tablet 60 MG PO (16:27)
[2024-11-10] MEDS: hyDRALAzine 10 mg Tablet PO (23:53)
[2024-11-11] VITALS (9 sets, daily range): BP systolic 159–175; BP diastolic 92–97; PULSE 74–108; RESP 17–28; TEMP 36.4–36.7; O2SAT 89–95
[2024-11-11] MEDS: guaiFENesin-dextromethorphan UDC 10 mL PO (01:41)
[2024-11-11] MEDS: acetaminophen 325 mg Tablet 650 MG PO (02:46)
[2024-11-11] MEDS: ipratropium-albuterol 3 mL Neb INHALATION ×3 (03:20→11:39)
[2024-11-11] MEDS: levothyroxine 75 mcg Tablet PO (05:47)
[2024-11-11] MEDS: levoFLOXacin 750 mg Tablet PO (05:47)
[2024-11-11] MEDS: predniSONE 20 mg Tablet 60 MG PO (08:49)
[2024-11-11] MEDS: citalopram 20 mg Tablet PO (08:49)
[2024-11-11] MEDS: carvedilol 3.125 mg Tablet PO (08:49)
[2024-11-11] MEDS: amlodipine 5 mg Tablet PO (08:50)
[2024-11-11] MEDS: lisinopril 20 mg Tablet PO (08:50)
[2024-11-11] MEDS: cloNIDine 0.1 mg Tablet PO (08:50)
[2024-11-11] MEDS: benzonatate 100 mg Capsule 200 MG PO (08:50)
[2024-11-11] MEDS: budesonide 0.5 mg/2 mL Neb INHALATION (09:01)
--- NOTE | 2024-11-11 11:51 | PM.DCS ---
Discharge Providers Date of Admission: 11/05/24 11:48 Date of Discharge: November 11, 2024 Attending Provider at Admission: Liborio Crawford Attending Provider at Discharge: Melody Del Rio MD Diagnoses at Discharge Discharge Diagnosis (1) Acute respiratory failure with hypoxia: Status: Acute (2) Asthma with exacerbation: Status: Acute Reason for Visit Reason for Visit: Resp Distress Brief History: The patient with a history of asthma, hypertension, depression, and hypothyroidism presents with an acute exacerbation of asthma over the past few days. They report increased shortness of breath accompanied by a dry cough (without phlegm), wheezing, and chest tightness that worsened last night. The patient also experienced fever, chills, sore throat, and a runny nose. Mild nausea (likely related to nitroglycerin administration in the ambulance) and a current mild headache were noted. The patient mentioned that such exacerbations occur about three to four times a year and recalled a hospital admission for pneumonia in April. At home, they use an albuterol inhaler and a nebulizer but are now out of several patel medications. On evaluation in ER she is found to be in respiratory failure, respiratory in the 30s, saturations down to 87, was started on nonrebreather oxygen, ABG pO2 163 on 12 L on nonrebreather. Hospital Course Hospital Course Assessment and plan (1) Acute respiratory failure with hypoxia: Oxygenation requirement with very slow improvement, she is coming down to about 2-1/2 L requirement nasal cannula oxygen support. She has had rather slow progress. She is still having bothersome cough at night, she is not producing some phlegm. Requesting sputum culture as well as MRSA PCR. Discussed with her scheduling antitussive with Tessalon, as well as keeping Robitussin as needed. As she is still having wheezing, diminished air entry, bronchospastic disease, at this time discussed continuation of IV steroid Solu-Medrol in addition to breathing treatments, as well as continue treatment for pneumonia with ceftriaxone and azithromycin, although if no further improvement by tomorrow, 72 hours, consider adjustment of antibiotic and/or adjustment based on sputum culture once available. Monitor for risk of hyperglycemia, pretension, gastritis, encephalopathy with IV corticosteroids. This morning she had also had an episode of choking while eating breakfast on which she states was a dry potato without having drink nearby, she denies having recurrent aspiration, she had coughed up the contents she was aspirating on, however, as she is producing phlegm, will add flutter valve to assist with clearance. Additionally will request speech therapy to assess her. She additionally feels she may have cracked a rib , is bothered by mild pain and chest wall with breathing, discussed with her adding incentive spirometer, she is familiar with it since has 1 at home. Lab studies are not available this morning due to difficulty with blood draw as per discussion with her. Per discussion with business case analyst, private pay oxygen has been looked into for her and she is unable to afford it. (2) Asthma with exacerbation: As above. Moderate to severe asthma exacerbation with tachypnea, hypoxia, diminished air entry, wheezing, respiratory failure. She has ran out of her Advair about 2 weeks ago. As well as has ran out of her rescue inhaler. She denies symptomatic environmental allergies, although it has been high pollen recently. She denies febrile illness or any sick contacts recently at home. She does not follow with airplane engineer yet, she is in process of working on setting up Medicaid and is planning to subsequently set up with pulmonology. Discussed with business case analyst, they are provided her with Medicaid application. She will benefit from Advair refill if possible at discharge. Initially avoiding benzodiazepine, however, with significant anxiety associated with the asthma exacerbation respiratory failure, cautiously adding 0.5 mg Xanax as needed every 6 hours until symptoms start improving. Dose may need to be increased depending on response, discussed with nursing -avoid if any somnolence. Plan Trop elevation: Reviewed troponin series, noted positive delta 17, up to highest troponin 50.95, at 6 hours down to 35. Reviewed TTE. Suspected demand ischemia. May have some underlying undiagnosed coronary disease. Suspect demand ischemia secondary to respiratory failure, but may benefit from further risk stratification. 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 sHe is in the process of quitting. Her has been in rehabilitation as well and states has not had any use in the last 90 days having achieved the milestone. Patient currently using intermittently states about every 2 weeks. Denies any IV use. Discussed with her additional assessment with hepatitis panel and HIV, she is agreeable. Encouraged cessation, discussed severe risks associated with use and she verbalized understanding. Hypothyroidism: She has run out of levothyroxine at home. Normally used 75 mcg daily. Resume. Depression: She has run out of citalopram and in the past also was on Wellbutrin. Resumed citalopram. 11/09/24 Acute hypoxic respiratory failure secondary to asthma exacerbation improving. Follow-up with case management on Monday forsetting up for medicaid and PCP and discharge planning. Continue current management 11/10/24 Acute hypoxic failure resolved.Can set up for medicaid and PCP set up as outpatient. will discharge her home today with po antibiotics and steroid taper. 11/11/24 She is doing well today, less SOB, was evaluated for home o2, she did not qualify. also has no insurance and money to pay for medications and oxygen if needed. Can set up Medicaid and PCP as outpatient, she is medically cleared for discharge. Will do meds to bed for few days. Physical Exam Narrative: Sleeping, wakes up to voice and shoulder touch. Const: COMMON NORMALS: patient oriented x3 and alert GENERAL APPEARANCE: cooperative ORIENTATION/CONSCIOUSNESS: Yes awake HENMT: COMMON NORMALS: oropharynx normal Neck/C-Spine: COMMON NORMALS: no JVD Resp: AUSCULTATION: diminished lung sounds (mild-mod) Cardio: COMMON NORMALS: no JVD, regular rhythm, S1 normal heart sound present, S2 normal heart sound present and No murmurs present (Cardio) RHYTHM: regular rhythm HEART SOUNDS: S1 normal heart sound present and S2 normal heart sound present GI: COMMON NORMALS: Normal to inspection, nondistended, normoactive bowel sounds present, Soft to palpation and non-tender PALPATION: Yes Soft to palpation Extremity: COMMON NORMALS: no joint enlargement and no pedal edema Neuro: COMMON NORMALS: patient oriented x3 and moves all extremities SENSORIUM/ORIENTATION: Yes alert Skin: COMMON NORMALS: no rashes or lesions noted GENERAL SKIN EXAM: no rashes or lesions noted Discharge Data Studies Completed and Pending Completed Studies During Hospitalization Category Date Time Status CTA chest [CT angio chest PE protcl [id number]] Routine Cat Scan 11/05/24 13:59 Completed XR chest 1V portable [id number] Stat Exams 11/05/24 11:36 Completed CV. echo complete* [id number] Routine Ultrasound 11/05/24 15:28 Completed Pending at discharge Category Date Time Status Sputum Culture and Gram Stain Routine Lab 11/10/24 16:03 Results Radiology Impressions Chest X-Ray 11/05/24 11:36 IMPRESSION: 1. Linear atelectasis or scarring suspected at the lung bases worse on the right. No definite consolidation noted. Chest CTA 11/05/24 13:59 IMPRESSION: 1. Bilateral pneumonia 2. Healing right rib fracture Laboratory Results WBC 15.03 10^3/uL (3.29-11.43) H 11/09/24 05:09 RBC 4.28 10^6/uL (3.85-5.65) 11/09/24 05:09 Hgb 12.50 g/dL (11.27-16.99) 11/09/24 05:09 Hct 39.6 % (36-47) 11/09/24 05:09 MCV 92.5 fl (85-98) 11/09/24 05:09 MCH 29.2 pg (27-33) 11/09/24 05:09 MCHC 31.6 g/dL (30-55) 11/09/24 05:09 RDW 14.1 % (12.1-15.1) 11/09/24 05:09 Plt Count 317 10^3/cmm (157-399) 11/09/24 05:09 MPV 10.1 fL (7.4-10.4) 11/09/24 05:09 Neut % (Auto) 85.7 % 11/09/24 05:09 Lymph % (Auto) 6.7 % 11/09/24 05:09 [place] % (Auto) 4.2 % 11/09/24 05:09 Eos % (Auto) 0.1 % 11/09/24 05:09 Baso % (Auto) 0.4 % 11/09/24 05:09 Neut # (Auto) 12.90 10^3/uL (1.8-7.7) H 11/09/24 05:09 Lymph # (Auto) 1.0 10^3/uL (0.8-4.8) 11/09/24 05:09 [place] # (Auto) 0.6 10^3/uL (0.2-0.9) 11/09/24 05:09 Eos # (Auto) 0.0 10^3/uL (0.0-0.8) 11/09/24 05:09 Baso # (Auto) 0.1 10^3/uL (0.0-0.1) 11/09/24 05:09 Nucleated RBC % (auto) 0 % 11/09/24 05:09 Nucleated RBCs # 0.0 /100WBC 11/09/24 05:09 D-Dimer 0.88 ug/mLFEU (0-0.59) H 11/05/24 10:12 Specimen Type Arterial 11/05/24 16:10 Sample Site Radial, right 11/05/24 16:10 ABG pH 7.36 (7.35-7.45) 11/05/24 16:10 ABG pCO2 47.0 mmHg (35-45) H 11/05/24 16:10 ABG pO2 133.0 mmHg (80.0-100.0) H 11/05/24 16:10 ABG PO2/FiO2 Ratio 302 11/05/24 16:10 ABG HCO3 26.2 mmol/L (22-26) H 11/05/24 16:10 ABG O2 Saturation > 99.1 11/05/24 09:50 ABG Base Excess 0.2 mmol/L (-2.0-2.0) 11/05/24 16:10 Sean Test Pos 11/05/24 16:10 A-a O2 Gradient 64.5 mmHg (5-10) H 11/05/24 09:50 Hematocrit 37.4 % (37-47) 11/05/24 16:10 Hgb O2 Saturation 97.8 % (95-100) 11/05/24 09:50 Carboxyhemoglobin 0.8 %THgb (0.4-20.1) 11/05/24 09:50 Methemoglobin 1.1 % (0.4-1.5) 11/05/24 09:50 Total Hemoglobin 12.9 g/dL (12-16) 11/05/24 09:50 Sodium 139.0 mmol/L (131-143) 11/05/24 09:50 Potassium 3.7 mmol/L (3.5-5.0) 11/05/24 09:50 Glucose 175.0 mg/dL (70-115) H 11/05/24 09:50 Ionized Calcium 1.2 mmol/L (1.1-1.4) 11/05/24 09:50 O2 Delivery Device Nc 11/05/24 16:10 O2 Liters/Min 6.0 % 11/05/24 16:10 FiO2 44.0 % 11/05/24 16:10 Engineering Technical Writer ID [email or web address] 11/05/24 16:10 Sodium 136 mmol/L (136-145) 11/09/24 05:09 Potassium 4.3 mmol/L (3.5-5.1) 11/09/24 05:09 Chloride 99 mmol/L (98-107) 11/09/24 05:09 Carbon Dioxide 30 mmol/L (22-29) H 11/09/24 05:09 Anion Gap 11.3 (5-19) 11/09/24 05:09 BUN 34 mg/dL (6-20) H 11/09/24 05:09 Creatinine 0.7 mg/dL (0.5-0.9) 11/09/24 05:09 GFR Calculation 88.9 mL/min (90-130) L 11/09/24 05:09 Glucose 171 mg/dL (65-115) H 11/09/24 05:09 POC Glucose 180 mg/dL (70-110) H 11/05/24 23:10 Calculated Osmolality 294 mOsm/kg (285-295) 11/09/24 05:09 Lactic Acid 1.2 mmol/L (0.5-2.2) 11/05/24 10:12 Calcium 9.0 mg/dL (8.5-10.5) 11/09/24 05:09 Magnesium 2.4 mg/dL (1.7-2.3) H 11/06/24 04:17 Total Bilirubin 0.2 mg/dL (0.15-1.2) 11/08/24 08:45 AST 15 U/L (0-32) 11/08/24 08:45 ALT 15 U/L (0-33) 11/08/24 08:45 Alkaline Phosphatase 79 U/L (35-105) 11/08/24 08:45 Troponin T Baseline 34 ng/L (0-10) H 11/05/24 10:12 Troponin T 120 Minute 50.95 ng/L (0-10) H 11/05/24 12:14 Delta Troponin T 16.95 ABS# (0-10) H* 11/05/24 12:14 Troponin T Hi Sens 6Hr 35.04 ng/L (0-10) H 11/05/24 16:42 Troponin T Hi Sens 6Hr Delta 1.04 ng/L (0-12) 11/05/24 16:42 Total Protein 6.4 g/dL (6.6-8.7) L 11/08/24 08:45 Albumin 3.6 g/dL (3.5-5.2) 11/08/24 08:45 Globulin 2.8 g/dL (1.3-4.6) 11/08/24 08:45 Urine Color Yellow (Yellow) 11/05/24 15:25 Urine Appearance Clear (CLEAR) 11/05/24 15:25 Urine pH 5.5 (5-7) 11/05/24 15:25 Ur Specific [place] 1.018 (1.005-1.030) 11/05/24 15: Urine Protein 1+ (Negative) A 11/05/24 15:25 Urine Glucose (UA) Trace (Normal) H 11/05/24 15:25 Urine Ketones Trace (Negative) 11/05/24 15:25 Urine Blood Negative (Negative) 11/05/24 15:25 Urine Nitrate Negative (Negative) 11/05/24 15:25 Urine Bilirubin Negative (Negative) 11/05/24 15:25 Urine Urobilinogen 1.0 mg/dL (Negative) 11/05/24 15:25 Ur Leukocyte Esterase Negative (Negative) 11/05/24 15:25 Urine RBC 0-2 /hpf (0-2) 11/05/24 15:25 Urine WBC 0-5 /hpf (0-5) 11/05/24 15:25 Ur Squamous Epith Cells 0-5 /hpf (0-5) 11/05/24 15:25 Amorphous Sediment Not Reportable 11/05/24 15:25 Urine Bacteria None seen /hpf (NONE) 11/05/24 15: Hyaline Casts 2.87 /lpf 11/05/24 15:25 Nasal MRSA (PCR) [place] detected (Not Detecte) A 11/08/24 17:55 Adenovirus (PCR) Not detected (NOT DETECT) 11/06/24 08:25 C. pneumoniae DNA (PCR) Not detected (NOT DETECT) 11/06/24 08:25 Coronavirus 229E (PCR) Not detected (NOT DETECT) 11/06/24 08:25 Hepatitis A IgM Ab Non-reactive (Nonreactive) 11/05/24 10:12 Hep Bs Antigen Non-reactive (Nonreactive) 11/05/24 10:12 Hep B Core IgM Ab Non-reactive (Nonreactive) 11/05/24 10:12 Hepatitis C Antibody Non-reactive (Nonreactive) 11/05/24 10:12 HIV 1&2 Ab & HIV 1 Ag Non-reactive (Non-Reactiv) 11/05/24 10:12 HIV 1&2 Antibody Non-reactive (Non-Reactiv) 11/05/24 10:12 Human Metapneumovir PCR Not detected (NOT DETECT) 11/06/24 08:25 Influenza A (H1) PCR Not detected (NOT DETECT) 11/06/24 08: Influenza A (PCR) Negative (Negative) 11/05/24 11:05 Influ A (H1/09) PCR Not detected (NOT DETECT) 11/06/24 08:25 Influenza A (H3) PCR Not detected (NOT DETECT) 11/06/24 08:25 Influenza Type A (PCR) Not detected (NOT DETECT) 11/06/24 08:25 Influenza Type B (PCR) Not detected (NOT DETECT) 11/06/24 08:25 M. pneumoniae (PCR) Not detected (NOT DETECT) 11/06/24 08:25 Parainfluenza 1 (PCR) Not detected (NOT DETECT) 11/06/24 08:25 Parainfluenza 2 (PCR) Not detected (NOT DETECT) 11/06/24 08:25 Parainfluenza 3 (PCR) Not detected (NOT DETECT) 11/06/24 08:25 Parainfluenza 4 (PCR) Not detected (NOT DETECT) 11/06/24 08:25 RSV (PCR) Negative (Negative) 11/05/24 11:05 RSV Type A (PCR) Not detected (NOT DETECT) 11/06/24 08:25 RSV Type B (PCR) Not detected (NOT DETECT) 11/06/24 08:25 Entero/Rhino (PCR) Not detected (NOT DETECT) 11/06/24 08:25 SARS-CoV-2 (PCR) Not detected (NOT DETECT) 11/06/24 08:25 Vitals Last Vital Signs Temp 98.0 F 11/11/24 11:37 Pulse 74 11/11/24 11:37 Resp 18 11/11/24 11:37 BP 159/93 11/11/24 11:37 Pulse Ox 94 11/11/24 11:37 O2 Del Method Room Air 11/11/24 11:37 O2 Flow Rate 2 11/10/24 08:30 Discharge Plan Discharge Patient Disposition: Home Condition: Stable Prescriptions: New clonidine HCl 0.1 mg Tablet 0.1 mg PO BID 30 Days Qty: 60 0RF ipratropium-albuterol 0.5 mg-3 mg(2.5 mg base)/3 mL Solution For Nebulization 3 ml inhalation Q4H.RESPIRATORY 5 Days Qty: 15 0RF lisinopril 20 mg Tablet 20 mg PO DAILY 30 Days Qty: 30 0RF amlodipine 5 mg Tablet 5 mg PO DAILY 30 Days Qty: 30 0RF carvedilol 3.125 mg Tablet 3.125 mg PO BID 30 Days Qty: 60 0RF levothyroxine 75 mcg Tablet 75 mcg PO QAM 90 Days Qty: 90 0RF citalopram 20 mg Tablet 20 mg PO DAILY 30 Days Qty: 30 0RF guaifenesin [Mucinex] 600 mg Tablet Extended Release 12hr 600 mg PO Q12H PRN (Reason: congestion) 10 Days Qty: 20 0RF azithromycin 500 mg tablet 500 mg PO DAILY 5 Days Qty: 5 0RF methylprednisolone [Medrol (Jeffrey)] 4 mg tablets,dose pack See Rx Instructions .ROUTE .COMPLEX Qty: 21 0RF Rx Instructions: for 6 days Continued albuterol sulfate 90 mcg/actuation HFA aerosol inhaler 1 puff inhalation Q6H PRN (Reason: shortness of breath or wheezing) 30 Days Qty: 8.5 0RF Discontinued guaifenesin 600 mg tablet extended release 12hr 600 mg PO Q12H PRN (Reason: congestion) 7 Days Qty: 14 0RF albuterol sulfate 2.5 mg /3 mL (0.083 %) solution for nebulization 2.5 mg inhalation .Q4-6H PRN (Reason: Shortness Of Breath) Discharge Orders: Discharge Order (Routine); Ordered 11/11/24 Ordered By: Melody Del Rio Referrals: Macarena Zepeda FNP [Nurse Practitioner] - 11/14/24 9:30 am (Hospital follow up and establish care. You will need to bring in bank statements or W2 or paycheck stubs or most recent taxes to see if you qualify for sliding scale. ) Discharge Diet: Cardiac Discharge Activity: Increase activity as tolerated Patient Instructions: Asthma Exacerbation - Adult, Lisinopril (By mouth) (Prinivil, Zestril), Clonidine (By mouth) (Catapres, Kapvay, Kapvay Dose Pack), Levothyroxine (By mouth) (Levothroid, Levoxyl, Synthroid, Tirosint), Azithromycin (By mouth) (Zithromax, Zithromax Tri-Jeffrey, Zithromax..., Methylprednisolone (By mouth) (Medrol, Medrol Dosepak), Amlodipine (By mouth) (Hypertenipine-2.5, Norvasc, Norliqva), Carvedilol (By mouth) (Coreg, Coreg CR, Hypertenevide-12.5), Ipratropium/Albuterol (By breathing) (Combivent, Combivent..., Citalopram (By mouth) (Celexa), Guaifenesin/Phenylephrine (By mouth), Acute Respiratory Failure (ED), Opioid Safety Discharge Attestations Time Spent in Discharge Care*: less than 30 min Quality Metrics Clinical Quality Measures [ No reported AMI, CVA or VTE this stay] Coding Level of Care Code Acute Code for Chg Fwd Diagnoses Acute respiratory failure with hypoxia J96.01 Asthma with exacerbation J45.901 Time Spent (min) 20
== END 2024-11-11 14:38 | disposition home or self-care (01) | DRG 193 ==
LOC: ER 11:45 → ICU 11:48 → MEDSURG 11-06 15:29
PROVIDERS: Admitting Provider Internal Medicine; Emergency Provider Family Medicine; Visit Provider Internal Medicine
DX: J18.9 Pneumonia, unspecified organism (principal); J96.01 Acute respiratory failure with hypoxia; J45.901 Unspecified asthma with (acute) exacerbation; I24.89 Other forms of acute ischemic heart disease; F32.A Depression, unspecified; E03.9 Hypothyroidism, unspecified; R07.89 Other chest pain
CPT/HCPCS: 36415; 36416; 36600; 71045; 71275; 80048; 80051; 80053; 80074; 81001; 82330; 82803; 82805; 82962; 83605; 83735; 84484; 85025; 85378; 87040; 87070; 87205; 87486; 87581; 87633; 87637; 87806; 92523; 92526; 92610; 93005; 93306; 94640; 94760; 96365; 96372; 99285; J0456; J0696; J1100; J1650; J2543; J2919; J3475; J7050; J7512; J7611; J7613; J7626; J9999

== ENCOUNTER 2025-02-20 23:16 | Emergency (ER) | payer MEDICAID, SELFPAY ==
[2025-02-20 23:23] VITALS: BP 128/90; PULSE 90; RESP 18; TEMP 36.7; O2SAT 96; BMI 29.2
--- NOTE | 2025-02-20 23:42 | XRR_ITS ---
PROCEDURE INFORMATION: Exam: XR Chest Exam date and time: 02/21/2025 12:02 AM Age: 49 years old Clinical indication: Dyspnea; Additional info: Shortness of breath TECHNIQUE: Imaging protocol: Radiologic exam of the chest. Views: 1 view. COMPARISON: CT angio chest PE prot [id number] 11/05/2024 4:01 PM FINDINGS: Lungs: Unremarkable. No consolidation. Pleural spaces: Unremarkable. No pleural effusion. No pneumothorax. Heart/Mediastinum: Unremarkable. No cardiomegaly. Bones/joints: Unremarkable. XR/XR chest 1V portable [id number] IMPRESSION: No acute findings.
[2025-02-21 00:30] VITALS: BP 135/90; PULSE 81; RESP 14; O2SAT 96
[2025-02-21] MEDS: methylPREDNISolone sod succ 125 mg/2 mL INJ IVP (00:38)
[2025-02-21 00:46] LABS: Hematocrit 38.5 % (36-47); Hemoglobin 12.60 g/dL (11.27-16.99); Mean Corpuscular HGB Conc 32.7 g/dL (30-55); Mean Corpuscular Hemoglobin 29.6 pg (27-33); Mean Corpuscular Volume 90.4 fl (85-98); Nucleated Red Blood Cells % 0 %; Platelet Count 337 10^3/cmm (157-399); Red Blood Count 4.26 10^6/uL (3.85-5.65); White Blood Count 14.46 10^3/uL (3.29-11.43)
[2025-02-21] MEDS: albuterol 8 gm MDI 2 PUFF INHALATION (00:51)
[2025-02-21 00:52] VITALS: PULSE 79; RESP 18; O2SAT 98
[2025-02-21 01:08] LABS: Lactic Sepsis W/Reflex 0.7 mmol/L (0.5-2.2)
--- NOTE | 2025-02-21 01:30 | ED_ITS ---
HPI - SOB/Dyspnea 2 General: Chief Complaint: Shortness of Breath/Dyspnea Stated Complaint: can't breath Time Seen by Provider: 02/21/25 00:09 History of Present Illness: HPI Narrative: 49-year-old female with a history of hyp othyroidism, hypertension, depression, obesity and asthma who presents to the emergency room with worsening shortness of breath. She has had cough. No fevers. No chest pain. She says she did a 5-day burst of steroids and states she can tell at the end of it that she was not quite over it and then has gotten worse over the last couple of days since. She is not requiring any oxygen on presentation. No altered mental status. No abdominal pain. No vomiting. Related Data Previous Rx's ?Medication ?Instructions ?Recorded albuterol sulfate 90 mcg/actuation 1 puff inhalation Q 6H PRN 05/31/24 aerosol inhaler shortness of breath or wheez ing 30 days #8.5 grams methylprednisolone 4 mg tablets in See Rx Instructions PO .COMPLEX 11/10/24 a dose pack (Medrol (Jeffrey)) #21 ea albuterol sulfate 90 mcg/actuation 2 inh inhalation Q4 H #6.7 grams 02/21/25 aerosol inhaler (Ventolin HFA) doxycycline hyclate 100 mg capsule 100 mg PO BID 7 day s #14 caps 02/21/25 prednisone 20 mg tablet 60 mg (3 x 20 mg) PO DAILY # 20 tabs 02/21/25 Allergies Allergy/AdvReac Type Severity Reaction Status Date / Time No Known Allergies Allergy Verified 07/16/24 19:14 Review of Systems 2 Narrative: Constitutional symptoms: Negative except as documented in HPI. Skin symptoms: Negative except as documented in HPI. Eye symptoms: Negative except as documented in HPI. ENMT symptoms: Negative except as documented in HPI. Respiratory symptoms: Negative except as documented in HPI. Cardiovascular symptoms: Negative except as documented in HPI. Gastrointestinal symptoms: Negative except as documented in HPI. Genitourinary symptoms: Negative except as documented in HPI. Musculoskeletal symptoms: Negative except as documented in HPI. Neurologic symptoms: Negative except as documented in HPI. Psychiatric symptoms: Negative except as documented in HPI. Endocrine symptoms: Negative except as documented in HPI. PFSH ED 2 PFSH: Medical History (Updated 02/21/25 @ 01:36 by Genoveva Lebron MD) RLL pneumonia Oct Hypothyroidism Asthma Hypertension Depression Surgical History H/O thyroidectomy Social History (Updated 11/05/24 @ 15:37 by Liborio Crawford MD) Smoking and tobacco/nicotine status: never used tobacco/nicotine Alcohol intake: never Substance/Drug Use: current Substance/Drug use frequency: few times a month Physical Exam 2 Narrative: EXAM NARRATIVE: General: Alert, no acute distress. Skin: Warm, dry. Head: Normocephalic, atraumatic. Neck: Supple, trachea midline. Eye: Extraocular movements are intact. Ears, nose, mouth and throat: Oral mucosa moist. Cardiovascular: Regular rate and rhythm, Normal peripheral perfusion. Respiratory: coarse, scattered wheeze, mild increased wob. tachypnea, breath sounds are equal, Symmetrical chest wall expansion. Gastrointestinal: Soft, Nontender, Non distended Musculoskeletal: Normal ROM, no deformity. Neurological: Alert and oriented, No focal neurological deficit observed. Psychiatric: Cooperative, appropriate mood & affect. Course 2 Vital Signs: Vital signs: Vital Signs Temperature 98.1 F 02/20/25 23:23 Pulse Rate 79 02/21/25 00:52 Respiratory Rate 18 02/21/25 00:52 Blood Pressure 135/90 02/21/25 00:30 Pulse Oximetry 98 02/21/25 00:52 Oxygen Delivery Me thod Room Air 02/21/25 00:52 MDM - SOB/Dyspnea Medical Decision Making Differential diagnosis for patient with shortness of breath includes but is not limited to and based on the above HPI, review of systems and physical exam: Pneumonia. Bronchitis. Asthma or COPD with acute exacerbation. Acute coronary syndrome / [place]. Pulmonary embolism. Anxiety. Congestive heart failure. Viral infections including influenza and Covid-19. Atrial fibrillation. Anxiety. Pleural effusion. Pneumothorax. Orders placed to evaluate differential diagnosis based on the above differential, HPI and physical exam Chest x-ray: No acute process. No infiltrate. No pneumothorax. This was reviewed and interpreted by myself the emergency room physician. I also reviewed the radiology report. Lab Review: Laboratory results were reviewed and interpreted by myself the emergency room physician. Mild leukocytosis with white count 14,000. No anemia. Platelets are normal. Stable chronic kidney disease. I reviewed the patient's medical record. Reexamination: Some improvement. Patient remained stable. No increased work of breathing. No altered mental status. No focal motor deficits. Assessment and plan: COPD with acute exacerbation ?IV Solu-Medrol and updraft. Also an MDI with spacer training by respiratory therapy. Patient had lots of questions about using the spacer and had not been using the one she has at home because she did not know how - Discharged home - Discussed plan with patient. Answered any questions. - Evaluation and treatment of this problem were appropriate in the emergency setting. Lab Data 02/21/25 00:40 02/21/25 01:40 Labs/Radiology: Radiology Impressions Chest X-Ray 02/20/25 23:42 IMPRESSION: No acute findings. Laboratory Results WBC 14.46 10^3/uL (3.29-11.43) H 02/21/25 00:40 RBC 4.26 10^6/uL (3.85-5.65) 02/21/25 00:40 Hgb 12.60 g/dL (11.27-16.99) 02/21/25 00:40 Hct 38.5 % (36-47) 02/21/25 00:40 MCV 90.4 fl (85-98) 02/21/25 00:40 MCH 29.6 pg (27-33) 02/21/25 00:40 MCHC 32.7 g/dL (30-55) 02/21/25 00:40 RDW 13.0 % (12.1-15.1) 02/21/25 00:40 Plt Count 337 10^3/cmm (157-399) 02/21/25 00:40 MPV 9.5 fL (7.4-10.4) 02/21/25 00:40 Neut % (Auto) 65.4 % 02/21/25 00:40 Lymph % (Auto) 17.8 % 02/21/25 00:40 [place] % (Auto) 6.7 % 02/21/25 00:40 Eos % (Auto) 9.4 % 02/21/25 00:40 Baso % (Auto) 0.3 % 02/21/25 00:40 Neut # (Auto) 9.44 10^3/uL (1.8-7.7) H 02/21/25 00:40 Lymph # (Auto) 2.6 10^3/uL (0.8-4.8) 02/21/25 00:40 [place] # (Auto) 1.0 10^3/uL (0.2-0.9) H 02/21/25 00:40 Eos # (Auto) 1.4 10^3/uL (0.0-0.8) H 02/21/25 00:40 Baso # (Auto) 0.1 10^3/uL (0.0-0.1) 02/21/25 00:40 Nucleated RBC % (auto) 0 % 02/21/25 00:40 Nucleated RBCs # 0.0 /100WBC 02/21/25 00:40 Sodium 137 mmol/L (136-145) 02/21/25 01:40 Potassium 3.7 mmol/L (3.5-5.1) 02/21/25 01:40 Chloride 101 mmol/L (98-107) 02/21/25 01:40 Carbon Dioxide 21 mmol/L (22-29) L 02/21/25 01:40 Anion Gap 18.7 (5-19) 02/21/25 01:40 BUN 37 mg/dL (6-20) H 02/21/25 01:40 Creatinine 1.4 mg/dL (0.5-0.9) H 02/21/25 01:40 GFR Calculation 40.0 mL/min (90-130) L 02/21/25 01:40 Glucose 105 mg/dL (65-115) 02/21/25 01:40 Calculated Osmolality 293 mOsm/kg (285-295) 02/21/25 01:40 Lactic Acid 0.7 mmol/L (0.5-2.2) 02/21/25 00:40 Calcium 9.1 mg/dL (8.5-10.5) 02/21/25 01:40 Total Bilirubin 0.2 mg/dL (0.15-1.2) 02/21/25 01:40 AST 13 U/L (0-32) 02/21/25 01:40 ALT 8 U/L (0-33) 02/21/25 01:40 Alkaline Phosphatase 93 U/L (35-105) 02/21/25 01:40 NT-Pro-B Natriuret Pep 82 pg/mL (0-125) 02/21/25 01:40 Total Protein 6.3 g/dL (6.6-8.7) L 02/21/25 01:40 Albumin 3.7 g/dL (3.5-5.2) 02/21/25 01:40 Globulin 2.6 g/dL (1.3-4.6) 02/21/25 01:40 Influenza A (PCR) Negative (Negative) 02/21/25 00:53 Influenza Type B (PCR) Negative (Negative) 02/21/25 00:53 RSV (PCR) Negative (Negative) 02/21/25 00:53 SARS-CoV-2 (PCR) Negative (Negative) 02/21/25 00:53 All radiology interpretation(s) finalized by discharge Discharge Plan Discharge Patient Disposition: Home Clinical Impression: Asthma with exacerbation Condition: Stable Prescriptions: New albuterol sulfate [Ventolin HFA] 90 mcg/actuation HFA aerosol inhaler 2 inh inhalation Q4H Qty: 6.7 0RF Rx Instructions: Please schedule every 4 hours for the next 3 days with up to every every 2 as needed. Please provide patient with a spacer/AeroChamber doxycycline hyclate 100 mg capsule 100 mg PO BID 7 Days Qty: 14 0RF prednisone 20 mg tablet 60 mg PO DAILY Qty: 20 0RF Rx Instructions: 3 tabs (60 mg) x 3 days. 2 tabs (40 mg) x 3 days. 1 tab (20 mg) x 3 days. 1/2 tab (10 mg) x 4 days No Action albuterol sulfate 90 mcg/actuation HFA aerosol inhaler 1 puff inhalation Q6H PRN (Reason: shortness of breath or wheezing) 30 Days Qty: 8.5 0RF methylprednisolone [Medrol (Jeffrey)] 4 mg tablets,dose pack See Rx Instructions .ROUTE .COMPLEX Qty: 21 0RF Rx Instructions: for 6 days Discharge Orders: Discharge ED (Routine); Ordered 02/21/25 Ordered By: Genoveva Lebron Referrals: Macarena Zepeda FNP [Primary Care Provider, Nurse Practitioner] Discharge Diet: Usual diet Discharge Activity: Increase activity as tolerated Patient Instructions: How to Use a Metered-Dose Inhaler and a Spacer (ED), Opioid Safety, Pain Management, Patient Portal & Camille Instructions Activity Restrictions/Additional Instructions: Thank you for choosing [facility] for your healthcare needs today. You have been screened and evaluated and felt safe for discharge. Health conditions do change or evolve sometimes and as such it is important that you follow up with your Primary Doctor to be re checked, 3-5 days is a general good time frame for follow up. You are always welcome to return to the ED for re assessment if your symptoms are worsening or you have new concerns Print Language: [place] Islander Coding Level of Care Code ED Audiovisual Production Specialist for Roxie Juan
[2025-02-21 01:32] LABS: Respiratory Syncytial Virus Ce NEGATIVE (Negative); SARS-CoV-2 PCR NEGATIVE (Negative)
[2025-02-21 02:14] LABS: Alanine Aminotransferase 8 U/L (0-33); Albumin Level 3.7 g/dL (3.5-5.2); Alkaline Phosphatase 93 U/L (35-105); Anion Gap 18.7 (5-19); Aspartate Amino Transferase 13 U/L (0-32); Blood Urea Nitrogen 37 mg/dL (6-20); Calcium 9.1 mg/dL (8.5-10.5); Carbon Dioxide 21 mmol/L (22-29); Chloride 101 mmol/L (98-107); Creatinine Clr Calc Pharmacy 47.0985; Globulin 2.6 g/dL (1.3-4.6); Glucose 105 mg/dL (65-115); NT Pro B Type Natriuretic Pept 82 pg/mL (0-125); Osmolality Calculated 293 mOsm/kg (285-295); Potassium 3.7 mmol/L (3.5-5.1); Sodium 137 mmol/L (136-145); Total Protein 6.3 g/dL (6.6-8.7)
[2025-02-21 02:27] VITALS: BP 105/70; PULSE 89; RESP 18; O2SAT 97
== END 2025-02-21 02:28 | disposition home or self-care (01) ==
PROVIDERS: Emergency Provider Emergency Medicine; PCP Nurse Practitioner Family
DX: J45.901 Unspecified asthma with (acute) exacerbation (principal); Z11.52 Encounter for screening for COVID-19; I10 Essential (primary) hypertension
CPT/HCPCS: 36415; 71045; 80053; 83605; 83880; 85025; 87637; 94640; 96374; 99284; J2919; J3535; J9999

== ENCOUNTER 2025-05-01 23:23 | Emergency (ER) | payer MEDICAID, SELFPAY ==
[2025-05-01 23:25] VITALS: BP 131/85; PULSE 110; RESP 24; TEMP 36.7; O2SAT 98; BMI 28.5
[2025-05-01 23:42] VITALS: BP 140/89; PULSE 105; RESP 20; O2SAT 97
--- NOTE | 2025-05-01 23:43 | XRR_ITS ---
PROCEDURE INFORMATION: Exam: XR Chest Exam date and time: 05/01/2025 11:48 PM Age: 50 years old Clinical indication: Condition or disease; Other: Asthma; Additional info: Asthma x1 week, congestion, R/O pna TECHNIQUE: Imaging protocol: Radiologic exam of the chest. Views: 1 view. COMPARISON: CR XR chest 1V portable [id number] 02/21/2025 12:02 AM FINDINGS: Lungs: Unremarkable. No consolidation. Pleural spaces: Unremarkable. No pleural effusion. No pneumothorax. Heart/Mediastinum: Unremarkable. No cardiomegaly. Vasculature: Aortic atherosclerosis. Bones/joints: Unremarkable. Single-view. XR/XR chest 1V portable [id number] IMPRESSION: No definite acute infiltrate or effusion.
[2025-05-02] MEDS: methylPREDNISolone sod succ 125 mg/2 mL INJ IVP
[2025-05-02] MEDS: magnesium sulfate premix 1 GM/100 ML PIGGYBACK IV
[2025-05-02 00:09] VITALS: BP 141/84; PULSE 102; RESP 20; O2SAT 96
--- NOTE | 2025-05-02 00:09 | ED_ITS ---
HPI - SOB/Dyspnea 2 General: Chief Complaint: Shortness of Breath/Dyspnea Stated Complaint: SOB, has asthma Time Seen by Provider: 05/01/25 23:26 History of Present Illness: HPI Narrative: 50-year-old female history of asthma, ep isodes of pneumonia in the past, presenting with approximately 1 week history of persistent shortness of breath and wheezing not improved with her breathing treatments at home, also reporting nasal congestion that preceded onset of the shortness of breath by a couple of days, no fevers, positive cough with clear sputum, no chest pain, no abdominal related complaints such as vomiting or diarrhea, no purulent discharge from the nares. No leg swelling or calf tenderness Related Data Previous Rx's ?Medication ?Instructions ?Recorded albuterol sulfate 90 mcg/actuation 1 puff inhalation Q 6H PRN 05/31/24 aerosol inhaler shortness of breath or wheez ing 30 days #8.5 grams albuterol sulfate 90 mcg/actuation 2 inh inhalation Q4 H #6.7 grams 02/21/25 aerosol inhaler (Ventolin HFA) amoxicillin 875 mg-potassium 1 tab PO BID #20 tabs clavulanate 125 mg tablet prednisone 20 mg tablet 60 mg (3 x 20 mg) PO DAILY # 20 tabs 04/08/25 albuterol sulfate 2.5 mg/0.5 mL 2.5 mg (0.5 mL) inhala tion Q4H PRN 05/02/25 solution for nebulization shortness of breath or wheez ing 1 month #30 ea azithromycin 250 mg tablet 250 mg PO DAILY 4 days #4 t abs 05/02/25 prednisone 50 mg tablet 50 mg PO DAILY 7 days #7 tab s 05/02/25 Allergies Allergy/AdvReac Type Severity Reaction Status Date / Time No Known Allergies Allergy Verified 05/01/25 23:34 PFSH ED 2 PFSH: Medical History RLL pneumonia Oct Hypothyroidism Asthma Hypertension Depression Surgical History H/O thyroidectomy Social History Smoking and tobacco/nicotine status: never used tobacco/nicotine Alcohol intake: never Substance/Drug Use: current Substance/Drug use frequency: few times a month Physical Exam 2 Narrative: EXAM NARRATIVE: Gen: A&Ox4, no acute distress, nontoxic appearing HEENT: Normocephalic, atraumatic, no scleral icterus, external ears normal, moist mucous membranes, no purulent rhinorrhea, no swelling or redness or tenderness to palpation of the maxillary sinuses bilateral Neck: Supple, full range of motion, no observable masses Lungs: Patient mildly tachypneic but speaking in full sentences without acute respiratory distress or accessory muscle usage, lungs with diffuse inspiratory and expiratory wheezing symmetric bilaterally, no rhonchi or rales CV: Regular rate and rhythm, no murmur, no pitting edema to lower extremities bilaterally Abdomen: Soft, nondistended, nontender to palpation MSK: No joint swelling, FROM all 4 extremities Skin: No rashes, petechiae, lesions. Normal color per patient. Neuro: Alert and oriented, no slurred speech, sensation and strength grossly intact all 4 extremities Psych: Appropriate for situation. Course 2 Reevaluation(s): Reevaluation #1: Patient reevaluated at this time, repeat pulmonary exam with resolution of inspiratory wheezing, good aeration throughout with minimal residual expiratory wheezing, patient subjectively feels much better, workup showing mild leukocytosis, no pneumonia, will discharge with antibiotics, steroids, nebulizer albuterol solution, PCP follow-up recommended, return precautions discussed. Time: 01:18 Vital Signs: Vital signs: Vital Signs Temperature 98.1 F 05/01/25 23:25 Pulse Rate 101 H 05/02/25 00:40 Respiratory Rate 26 H 05/02/25 00:31 Blood Pressure 153/102 05/02/25 00:40 Pulse Oximetry 96 05/02/25 00:40 Oxygen Delivery Me thod Room Air 05/02/25 00:40 MDM - SOB/Dyspnea Medical Decision Making 50-year-old female history of asthma presenting the emergency department with 1 week history of shortness of breath and wheezing preceded by a couple days of nasal congestion and cough, on arrival to the ER patient has diffuse wheezing without hypoxia but is mildly tachypneic, no acute respiratory distress, suspect primary asthma exacerbation possibly secondary to viral URI, also consider postviral URI bacterial pneumonia, no concern for heart failure, low concern for ACS, EKG without acute ischemia, plan for treatment for asthma, chest x-ray rule out pneumonia, reassess for disposition Lab Data Labs with leukocytosis, borderline creatinine 1.3, VBG without hypercapnia or acidemia 05/02/25 00:03 05/02/25 00:03 Labs/Radiology: Radiology Impressions Chest X-Ray 05/01/25 23:43 IMPRESSION: No definite acute infiltrate or effusion. Laboratory Results WBC 16.18 10^3/uL (3.29-11.43) H 05/02/25 00:03 RBC 4.17 10^6/uL (3.85-5.65) 05/02/25 00:03 Hgb 12.50 g/dL (11.27-16.99) 05/02/25 00:03 Hct 38.9 % (36-47) 05/02/25 00:03 MCV 93.3 fl (85-98) 05/02/25 00:03 MCH 30.0 pg (27-33) 05/02/25 00:03 MCHC 32.1 g/dL (30-55) 05/02/25 00:03 RDW 13.3 % (12.1-15.1) 05/02/25 00:03 Plt Count 272 10^3/cmm (157-399) 05/02/25 00:03 MPV 10.1 fL (7.4-10.4) 05/02/25 00:03 Neut % (Auto) 72.5 % 05/02/25 00:03 Lymph % (Auto) 10.3 % 05/02/25 00:03 [place] % (Auto) 5.9 % 05/02/25 00:03 Eos % (Auto) 10.5 % 05/02/25 00:03 Baso % (Auto) 0.4 % 05/02/25 00:03 Neut # (Auto) 11.73 10^3/uL (1.8-7.7) H 05/02/25 00:03 Lymph # (Auto) 1.7 10^3/uL (0.8-4.8) 05/02/25 00:03 [place] # (Auto) 1.0 10^3/uL (0.2-0.9) H 05/02/25 00:03 Eos # (Auto) 1.7 10^3/uL (0.0-0.8) H 05/02/25 00:03 Baso # (Auto) 0.1 10^3/uL (0.0-0.1) 05/02/25 00:03 Nucleated RBC % (auto) 0 % 05/02/25 00:03 Nucleated RBCs # 0.0 /100WBC 05/02/25 00:03 Specimen Type Venous 05/01/25 00:09 Sean Test N/a 05/01/25 00:09 VBG pH 7.36 (7.32-7.42) 05/01/25 00:09 VBG pCO2 45.3 mmHg (41-51) 05/01/25 00:09 VBG pO2 40.8 mmHg (25-40) H 05/01/25 00:09 VBG HCO3 25.5 mmol/L (24-28) 05/01/25 00:09 VBG Base Excess -0.4 mmol/L (-3.0-3.0) 05/01/25 00:09 VBG Hematocrit 40.2 % (37-47) 05/01/25 00:09 O2 Delivery Device Room air 05/01/25 00:09 FiO2 21.0 % 05/01/25 00:09 Supply Chain Planner ID [email or web address] 05/01/25 00:09 Sodium 138 mmol/L (136-145) 05/02/25 00:03 Potassium 3.6 mmol/L (3.5-5.1) 05/02/25 00:03 Chloride 101 mmol/L (98-107) 05/02/25 00:03 Carbon Dioxide 23 mmol/L (22-29) 05/02/25 00:03 Anion Gap 17.6 (5-19) 05/02/25 00:03 BUN 35 mg/dL (6-20) H 05/02/25 00:03 Creatinine 1.3 mg/dL (0.5-0.9) H 05/02/25 00:03 GFR Calculation 43.4 mL/min (90-130) L 05/02/25 00:03 Glucose 113 mg/dL (65-115) 05/02/25 00:03 Calculated Osmolality 295 mOsm/kg (285-295) 05/02/25 00:03 Calcium 9.0 mg/dL (8.5-10.5) 05/02/25 00:03 Magnesium 1.9 mg/dL (1.7-2.3) 05/02/25 00:03 Influenza A (PCR) Negative (Negative) 05/02/25 00:10 Influenza Type B (PCR) Negative (Negative) 05/02/25 00:10 RSV (PCR) Negative (Negative) 05/02/25 00:10 SARS-CoV-2 (PCR) Negative (Negative) 05/02/25 00:10 All radiology interpretation(s) finalized by discharge ED provider radiology interpretation(s): Chest x-ray negative for pneumonia EKG Data EKG 1: I personally reviewed and interpreted this EKG as follows: EKG Interpretation Date: 05/02/25 EKG interpretation time: 00:00 Interpretation: Sinus tachycardia 109 bpm, no STEMI, no ectopy, QTc 386 ms, normal axis Discharge Plan Discharge Patient Disposition: Home Clinical Impression: Asthma with exacerbation Qualifiers: Asthma severity: mild Asthma persistence: intermittent Qualified Code(s): J 45.21 - Mild intermittent asthma with (acute) exacerbation Condition: Stable Prescriptions: New albuterol sulfate 2.5 mg/0.5 mL solution for nebulization 2.5 mg inhalation Q4H PRN (Reason: shortness of breath or wheezing) 30 Days Qty: 30 0RF prednisone 50 mg tablet 50 mg PO DAILY 7 Days Qty: 7 0RF azithromycin 250 mg tablet 250 mg PO DAILY 4 Days Qty: 4 0RF Rx Instructions: start on day 2 of therapy No Action prednisone 20 mg tablet 60 mg PO DAILY Qty: 20 0RF Rx Instructions: 3 tabs (60 mg) x 3 days. 2 tabs (40 mg) x 3 days. 1 tab (20 mg) x 3 days. 1/2 tab (10 mg) x 4 days amoxicillin-pot clavulanate 875-125 mg tablet 1 tab PO BID Qty: 20 0RF albuterol sulfate 90 mcg/actuation HFA aerosol inhaler 1 puff inhalation Q6H PRN (Reason: shortness of breath or wheezing) 30 Days Qty: 8.5 0RF albuterol sulfate [Ventolin HFA] 90 mcg/actuation HFA aerosol inhaler 2 inh inhalation Q4H Qty: 6.7 0RF Rx Instructions: Please schedule every 4 hours for the next 3 days with up to every every 2 as needed. Please provide patient with a spacer/AeroChamber Discharge Orders: Discharge ED (Routine); Ordered 05/02/25 Ordered By: Tolu Nascimento Referrals: Macarena Zeepda FNP [Primary Care Provider, Nurse Practitioner] Patient Instructions: Patient Portal & Camille Instructions, Asthma Exacerbation - Adult Print Language: Armenian Coding Level of Care Code ED Agricultural Produce Washer for Roxie Juan
[2025-05-02 00:13] LABS: Base Excess VBG -0.4 mmol/L (-3.0-3.0); Blood Gas Operator Identificat gerca; Blood Gas Sample Type Venous; HCO3 VBG 25.5 mmol/L (24-28); PCO2 VBG 45.3 mmHg (41-51); PO2 VBG 40.8 mmHg (25-40); Venous Blood Gas Hematocrit 40.2 % (37-47); pH VBG 7.36 (7.32-7.42)
[2025-05-02 00:17] LABS: Hematocrit 38.9 % (36-47); Hemoglobin 12.50 g/dL (11.27-16.99); Mean Corpuscular HGB Conc 32.1 g/dL (30-55); Mean Corpuscular Hemoglobin 30.0 pg (27-33); Mean Corpuscular Volume 93.3 fl (85-98); Nucleated Red Blood Cells % 0 %; Platelet Count 272 10^3/cmm (157-399); Red Blood Count 4.17 10^6/uL (3.85-5.65); White Blood Count 16.18 10^3/uL (3.29-11.43)
[2025-05-02 00:22] VITALS: PULSE 99; RESP 22; O2SAT 96
[2025-05-02 00:28] LABS: Anion Gap 17.6 (5-19); Blood Urea Nitrogen 35 mg/dL (6-20); Calcium 9.0 mg/dL (8.5-10.5); Carbon Dioxide 23 mmol/L (22-29); Chloride 101 mmol/L (98-107); Creatinine Clr Calc Pharmacy 49.5413; Glucose 113 mg/dL (65-115); Magnesium 1.9 mg/dL (1.7-2.3); Osmolality Calculated 295 mOsm/kg (285-295); Potassium 3.6 mmol/L (3.5-5.1); Sodium 138 mmol/L (136-145)
[2025-05-02 00:31] VITALS: PULSE 96; RESP 26; O2SAT 100
[2025-05-02 00:40] VITALS: BP 153/102; PULSE 101; O2SAT 96
[2025-05-02 00:53] LABS: Respiratory Syncytial Virus Ce NEGATIVE (Negative); SARS-CoV-2 PCR NEGATIVE (Negative)
[2025-05-02 01:30] VITALS: BP 118/88; PULSE 94; RESP 18; O2SAT 94
== END 2025-05-02 01:33 | disposition home or self-care (01) ==
PROVIDERS: Emergency Provider Student in an Organized Health Care Education/Training Program; PCP Nurse Practitioner Family
DX: J45.21 Mild intermittent asthma with (acute) exacerbation (principal); Z11.52 Encounter for screening for COVID-19; I10 Essential (primary) hypertension
CPT/HCPCS: 36415; 36600; 71045; 80048; 82803; 83735; 85025; 87637; 94640; 96365; 96375; 99284; J2919; J3475; J7030; J9999; Q0144

== ENCOUNTER 2025-06-02 18:45 | Emergency (ER) | payer MEDICAID, SELFPAY ==
[2025-06-02 18:48] VITALS: BP 106/64; PULSE 96; RESP 24; TEMP 36.3; O2SAT 97; BMI 28.3
--- NOTE | 2025-06-02 18:50 | XRR_ITS ---
PROCEDURE INFORMATION: Exam: XR Chest Exam date and time: 06/02/2025 6:50 PM Age: 50 years old Clinical indication: Shortness of breath TECHNIQUE: Imaging protocol: Radiologic exam of the chest. Views: 1 view. Total images: 8 COMPARISON: 1. CR (CHEST, ) 05/01/2025 11:48 PM 2. CR XR chest 1V portable [id number] 02/21/2025 12:02 AM FINDINGS: Limitations: The frontal view of the chest is taken in lordotic positioning. Lungs: Unremarkable. No consolidation. No lung consolidation, mass, or acute pulmonary abnormality identified. Pleural spaces: No pathologic pleural thickening, significant pleural effusion or pneumothorax. Heart/Mediastinum: Normal heart size. Vasculature: Mild aortic atherosclerotic calcification. Bones/joints: Mild generalized degenerative changes of the vertebral column characterized primarily by multilevel osteophyte formation, and degenerative facet arthrosis commensurate with patient's age. No intrinsic osseous abnormality identified. XR/XR chest 1V portable [id number] IMPRESSION: 1. No new acute cardiopulmonary disease or adverse interval change radiographically. 2. Mild skeletal degenerative and other chronic/non-acute findings as described above.
--- NOTE | 2025-06-02 18:50 | ED_ITS ---
HPI - SOB/Dyspnea General: Chief Complaint: Asthma Stated Complaint: Asthma Attack Time Seen by Provider: 06/02/25 18:47 History of Present Illness: HPI Narrative: 50-year-old female with a history of pranay gstanding asthma who presents emergency room with an asthma attack. She said she has been quite a bit more short of breath the last couple days. She has had extensive cough. She had some blood- tinged sputum at 1 point. No oxygen requirement on presentation. Mildly tachypneic initially. No altered mental status. No fevers. No abdominal pain. No vomiting. Related Data Previous Rx's ?Medication ?Instructions ?Recorded albuterol sulfate 90 mcg/actuation 1 puff inhalation Q 6H PRN 05/31/24 aerosol inhaler shortness of breath or wheez ing 30 days #8.5 grams albuterol sulfate 90 mcg/actuation 2 inh inhalation Q4 H #6.7 grams 02/21/25 aerosol inhaler (Ventolin HFA) amoxicillin 875 mg-potassium 1 tab PO BID #20 tabs clavulanate 125 mg tablet prednisone 20 mg tablet 60 mg (3 x 20 mg) PO DAILY # 20 tabs 04/08/25 albuterol sulfate 90 mcg/actuation 2 inh inhalation Q4 H #6.7 grams 06/02/25 aerosol inhaler (Ventolin HFA) doxycycline monohydrate 100 mg 100 mg PO BID 10 days # 20 caps 06/02/25 capsule prednisone 20 mg tablet 60 mg (3 x 20 mg) PO DAILY # 20 tabs 06/02/25 Allergies Allergy/AdvReac Type Severity Reaction Status Date / Time No Known Allergies Allergy Verified 05/01/25 23:34 Review of Systems Narrative: Constitutional symptoms: Negative except as documented in HPI. Skin symptoms: Negative except as documented in HPI. Eye symptoms: Negative except as documented in HPI. ENMT symptoms: Negative except as documented in HPI. Respiratory symptoms: Negative except as documented in HPI. Cardiovascular symptoms: Negative except as documented in HPI. Gastrointestinal symptoms: Negative except as documented in HPI. Genitourinary symptoms: Negative except as documented in HPI. Musculoskeletal symptoms: Negative except as documented in HPI. Neurologic symptoms: Negative except as documented in HPI. Psychiatric symptoms: Negative except as documented in HPI. Endocrine symptoms: Negative except as documented in HPI. [facility] ED PFS: Medical History (Updated 06/02/25 @ 19:25 by Genoveva Lebron MD) RLL pneumonia Oct Hypothyroidism Asthma Hypertension Depression Surgical History H/O thyroidectomy Social History Smoking and tobacco/nicotine status: never used tobacco/nicotine Alcohol intake: never Substance/Drug Use: current Substance/Drug use frequency: few times a month Physical Exam Narrative: EXAM NARRATIVE: General: Alert, no acute distress. Skin: Warm, dry. Head: Normocephalic, atraumatic. Neck: Supple, trachea midline. Eye: Extraocular movements are intact. Ears, nose, mouth and throat: Oral mucosa moist. Cardiovascular: Regular rate and rhythm, Normal peripheral perfusion. Respiratory: coarse, scattered wheeze, mild increased wob. tachypnea, breath sounds are equal, Symmetrical chest wall expansion. Gastrointestinal: Soft, Nontender, Non distended Musculoskeletal: Normal ROM, no deformity. Neurological: Alert and oriented, No focal neurological deficit observed. Psychiatric: Cooperative, appropriate mood & affect. Course Vital Signs: Vital signs: Vital Signs Temperature 97.3 F L 06/02/25 18:48 Pulse Rate 100 06/02/25 19:15 Respiratory Rate 18 06/02/25 19:15 Blood Pressure 106/64 06/02/25 18:48 Pulse Oximetry 95 06/02/25 19:15 Oxygen Delivery Me thod Room Air 06/02/25 19:15 MDM - SOB/Dyspnea Medical Decision Making Medical decision making: Patient's reason for coming to the emergency room Social determinants: Patient is unemployed but she is accompanied by her . I reviewed the patient's medical record. Last visit to the emergency room was about a month ago with similar presentation. Asthma exacerbation. I reviewed the patient's current home meds Patient not currently on any chronic home medications. Alternate historians: None needed Differential diagnosis for patient with shortness of breath includes but is not limited to and based on the above HPI, review of systems and physical exam: Pneumonia. Bronchitis. Asthma or COPD with acute exacerbation. Acute coronary syndrome / [place]. Pulmonary embolism. Anxiety. Congestive heart failure. Viral infections including influenza and Covid-19. Atrial fibrillation. Anxiety. Pleural effusion. Pneumothorax. Orders placed to evaluate differential diagno sis based on the above differential, HPI and physical exam Chest x-ray: No acute process. No infiltrate. No pneumothorax. This was reviewed and interpreted by myself the emergency room physician. I also reviewed the radiology report. Lab Review: Laboratory results were reviewed and interpreted by myself the emergency room physician. No lab work indicated today. Patient does not have any evidence of a pneumonia on her x-ray and physical exam is fairly benign other than some wheezing. This seems to be a fairly straightforward COPD exacerbation Assessment of risk: Level of risk: Mild. Hospitalization considerations: No oxygen requirements. Minimal increased work of breathing. No need for admission today. Reexamination: General: Alert, no acute distress. Skin: Warm, dry. Head: Normocephalic, atraumatic. Neck: Supple, trachea midline. Eye: Extraocular movements are intact. Ears, nose, mouth and throat: Oral mucosa moist. Cardiovascular: Regular rate and rhythm, Normal peripheral perfusion. Respiratory: some expiratory wheeze, mild increased wob, breath sounds are equal, Symmetrical chest wall expansion. Gastrointestinal: Soft, Nontender, Non distended Musculoskeletal: Normal ROM, no deformity. Neurological: Alert and oriented, No focal neurological deficit observed. Psychiatric: Cooperative, appropriate mood & affect. Assessment and plan: Asthma exacerbation ?2 updrafts and IV Solu-Medrol in the emergency room. ?I also discussed with her proper use of an inhaler with a spacer and that this should help with her symptoms in a much more effective manner. - Discharged home - Discussed plan with patient. Answered any questions. - Evaluation and treatment of this problem were appropriate in the emergency setting. Lab Data Labs/Radiology: Radiology Impressions Chest X-Ray 06/02/25 18:50 IMPRESSION: 1. No new acute cardiopulmonary disease or adverse interval change radiographically. 2. Mild skeletal degenerative and other chronic/non-acute findings as described above. All radiology interpretation(s) finalized by discharge Discharge Plan Discharge Patient Disposition: Home Clinical Impression: Asthma with acute exacerbation Condition: Stable Prescriptions: New prednisone 20 mg tablet 60 mg PO DAILY Qty: 20 0RF Rx Instructions: 3 tabs (60 mg) x 3 days. 2 tabs (40 mg) x 3 days. 1 tab (20 mg) x 3 days. 1/2 tab (10 mg) x 4 days doxycycline monohydrate 100 mg capsule 100 mg PO BID 10 Days Qty: 20 0RF albuterol sulfate [Ventolin HFA] 90 mcg/actuation HFA aerosol inhaler 2 inh inhalation Q4H Qty: 6.7 0RF Rx Instructions: Please schedule every 4 hours for the next 3 days with up to every every 2 as needed. Please provide patient with a spacer/AeroChamber No Action prednisone 20 mg tablet 60 mg PO DAILY Qty: 20 0RF Rx Instructions: 3 tabs (60 mg) x 3 days. 2 tabs (40 mg) x 3 days. 1 tab (20 mg) x 3 days. 1/2 tab (10 mg) x 4 days amoxicillin-pot clavulanate 875-125 mg tablet 1 tab PO BID Qty: 20 0RF albuterol sulfate 90 mcg/actuation HFA aerosol inhaler 1 puff inhalation Q6H PRN (Reason: shortness of breath or wheezing) 30 Days Qty: 8.5 0RF albuterol sulfate [Ventolin HFA] 90 mcg/actuation HFA aerosol inhaler 2 inh inhalation Q4H Qty: 6.7 0RF Rx Instructions: Please schedule every 4 hours for the next 3 days with up to every every 2 as needed. Please provide patient with a spacer/AeroChamber Discharge Orders: Discharge ED (Routine); Ordered 06/02/25 Ordered By: Genoveva Lebron Referrals: Macarena Zepeda FNP [Primary Care Provider, Nurse Practitioner] Discharge Diet: Usual diet Discharge Activity: Increase activity as tolerated Patient Instructions: How to Use a Metered-Dose Inhaler and a Spacer (ED), Opioid Safety, Pain Management, Patient Portal & Camille Instructions Activity Restrictions/Additional Instructions: Thank you for choosing [facility] for your healthcare needs today. You have been screened and evaluated and felt safe for discharge. Health conditions do change or evolve sometimes and as such it is important that you follow up with your Primary Doctor to be re checked, 3-5 days is a general good time frame for follow up. You are always welcome to return to the ED for re assessment if your symptoms are worsening or you have new concerns Print Language: Angolan Coding Level of Care Code ED Foot Drill Operator for Roxie Juan
[2025-06-02 19:15] VITALS: PULSE 100; RESP 18; O2SAT 95
[2025-06-02] MEDS: methylPREDNISolone sod succ 125 mg/2 mL INJ IVP (19:16)
== END 2025-06-02 19:38 | disposition home or self-care (01) ==
PROVIDERS: Emergency Provider Emergency Medicine; PCP Nurse Practitioner Family
DX: J45.901 Unspecified asthma with (acute) exacerbation (principal); I10 Essential (primary) hypertension
CPT/HCPCS: 71045; 94640; 96374; 99284; J2919; J7613; J9999

== ENCOUNTER 2025-06-28 22:46 | Emergency (ER) | payer MEDICAID, SELFPAY ==
[2025-06-28 22:56] VITALS: BP 172/101; PULSE 95; RESP 17; TEMP 36.7; O2SAT 98; BMI 28.5
--- NOTE | 2025-06-28 23:05 | XRR_ITS ---
PROCEDURE INFORMATION: Exam: XR Chest Exam date and time: 06/28/2025 11:08 PM Age: 50 years old Clinical indication: Shortness of breath; Prior surgery; Surgery date: 6+ months; Surgery type: Thyroidectomy; C/O SOB. History of asthma. TECHNIQUE: Imaging protocol: Radiologic exam of the chest. Views: 1 view. COMPARISON: CR (CHEST, ) 06/02/2025 6:50 PM FINDINGS: Lungs: Unremarkable. No consolidation. Pleural spaces: Unremarkable. No pleural effusion. No pneumothorax. Heart/Mediastinum: Unremarkable. No cardiomegaly. Bones/joints: Unremarkable. XR/XR chest 1V portable [id number] IMPRESSION: No acute findings.
[2025-06-28 23:09] VITALS: BP 127/94; PULSE 95; RESP 23; O2SAT 94
[2025-06-28 23:20] VITALS: PULSE 96; RESP 18; O2SAT 96
[2025-06-28 23:24] VITALS: PULSE 100; RESP 18; O2SAT 100
[2025-06-28 23:42] VITALS: BP 152/88; PULSE 93; RESP 19; O2SAT 95
--- NOTE | 2025-06-28 23:57 | ED_ITS ---
HPI - Asthma General: Chief Complaint: Asthma Stated Complaint: exaserbation of asthma Time Seen by Provider: 06/28/25 22:49 History of Present Illness: Patient is a 50-year-old female who presents with worsening respiratory symptoms over several days with significant exacerbation in the past 24 hours. She reports persistent cough that is non-productive due to chest tightness, stating she feels the need to cough but cannot effectively clear secretions. The patient describes severe shortness of breath, noting she 'can't walk across the room without gasping for air.' She reports chest discomfort which she attributes to a pulled muscle from excessive coughing. The patient has run out of her prescribed inhalers, including both albuterol and a combination inhaler (likely a corticosteroid/LABA combination). She attempted to contact her primary care physician but was unable to secure an appointment until Monday, prompting her emergency visit due to symptom severity. Patient reports she typically requires steroids during similar exacerbations. Related Data Previous Rx's ?Medication ?Instructions ?Recorded albuterol sulfate 90 mcg/actuation 1 puff inhalation Q 6H PRN 05/31/24 aerosol inhaler shortness of breath or wheez ing 30 days #8.5 grams albuterol sulfate 90 mcg/actuation 2 inh inhalation Q4 H #6.7 grams 02/21/25 aerosol inhaler (Ventolin HFA) amoxicillin 875 mg-potassium 1 tab PO BID #20 tabs clavulanate 125 mg tablet albuterol sulfate 90 mcg/actuation 2 inh inhalation Q4 H #6.7 grams 06/02/25 aerosol inhaler (Ventolin HFA) prednisone 20 mg tablet 60 mg (3 x 20 mg) PO DAILY # 20 tabs 06/02/25 ipratropium 0.5 mg-albuterol 3 mg 3 ml inhalation Q4H PRN shortness 06/29/25 (2.5 mg base)/3 mL nebulization of breath #180 mL soln prednisone 20 mg tablet 60 mg (3 x 20 mg) PO DAILY # 15 tabs 06/29/25 Allergies Allergy/AdvReac Type Severity Reaction Status Date / Time No Known Allergies Allergy Verified 06/28/25 23:00 [facility] ED PFSH: Medical History RLL pneumonia Oct Hypothyroidism Asthma Hypertension Depression Surgical History H/O thyroidectomy Social History Smoking and tobacco/nicotine status: never used tobacco/nicotine Alcohol intake: never Substance/Drug Use: current Substance/Drug use frequency: few times a month Physical Exam Const: COMMON NORMALS: no acute distress GENERAL APPEARANCE: cooperative; not ill appearing and not frail appearing HENMT: COMMON NORMALS: normocephalic, atraumatic and Normal external nose present HEAD & SCALP: normocephalic and atraumatic FACE & SINUS: normal facial exam and face symmetric NOSE: Normal external nose present Eye: COMMON NORMALS: Equal, round and reactive pupils present and EOMs intact bilaterally PUPIL: Yes Equal, round and reactive pupils present Neck/C-Spine: GENERAL: Yes trachea midline Chest: CHEST: Yes Symmetrical chest wall rise Resp: EFFORT & INSPECTION: Yes symmetric chest movement, Yes tachypneic and Yes pursed lip breathing AUSCULTATION: wheezes Cardio: COMMON NORMALS: regular rate and regular rhythm RATE: regular rate RHYTHM: regular rhythm GI: COMMON NORMALS: Normal to inspection, nondistended, normoactive bowel sounds present Extremity: COMMON NORMALS: no pedal edema Neuro: HERNESTO COMA SCALE: document GCS findings Cut Off coma scale eye opening: Spontaneous [place] coma scale verbal response: Orientated [place] coma scale motor response: Obey commands [place] coma scale total score: 15 SENSORY EXAM: Yes extremities (intact) Psych: COMMON NORMALS: speech normal SPEECH: Yes normal speech Skin: COMMON NORMALS: no rashes or lesions noted GENERAL SKIN EXAM: no rashes or lesions noted Course Vital Signs: Vital signs: Vital Signs Temperature 98.1 F 06/28/25 22:56 Pulse Rate 83 06/29/25 00:25 Respiratory Rate 25 H 06/29/25 00:25 Blood Pressure 150/96 06/29/25 00:25 Pulse Oximetry 95 06/29/25 00:25 Oxygen Delivery Me thod Room Air 06/28/25 23:24 MDM - Asthma Medical Decision Making Wheezes improved after breathing treatment here. She is 95% on room air. Heart rate is nontachycardic. Chest x-ray is nonacute. She will be dispensed DuoNeb treatments x 2, written prescription. Continue steroids. She received 60 of prednisone here. She has an appointment with PCP on Monday which is appropriate. Return for worsening symptoms. Stable for discharge. Lab Data Radiology Impressions Chest X-Ray 06/28/25 23:05 IMPRESSION: No acute findings. All radiology interpretation(s) finalized by discharge Discharge Plan Discharge Patient Disposition: Home Clinical Impression: Asthma with acute exacerbation Condition: Stable Prescriptions: New ipratropium-albuterol 0.5 mg-3 mg(2.5 mg base)/3 mL solution for nebulization 3 ml inhalation Q4H PRN (Reason: shortness of breath) Qty: 180 0RF Rx Instructions: until breathing returns to target peak flow/parameters Continued prednisone 20 mg tablet 60 mg PO DAILY Qty: 15 0RF Rx Instructions: 3 tabs (60 mg) x 3 days. 2 tabs (40 mg) x 3 days. 1 tab (20 mg) x 3 days. 1/2 tab (10 mg) x 4 days No Action amoxicillin-pot clavulanate 875-125 mg tablet 1 tab PO BID Qty: 20 0RF albuterol sulfate 90 mcg/actuation HFA aerosol inhaler 1 puff inhalation Q6H PRN (Reason: shortness of breath or wheezing) 30 Days Qty: 8.5 0RF albuterol sulfate [Ventolin HFA] 90 mcg/actuation HFA aerosol inhaler 2 inh inhalation Q4H Qty: 6.7 0RF Rx Instructions: Please schedule every 4 hours for the next 3 days with up to every every 2 as needed. Please provide patient with a spacer/AeroChamber prednisone 20 mg tablet 60 mg PO DAILY Qty: 20 0RF Rx Instructions: 3 tabs (60 mg) x 3 days. 2 tabs (40 mg) x 3 days. 1 tab (20 mg) x 3 days. 1/2 tab (10 mg) x 4 days albuterol sulfate [Ventolin HFA] 90 mcg/actuation HFA aerosol inhaler 2 inh inhalation Q4H Qty: 6.7 0RF Rx Instructions: Please schedule every 4 hours for the next 3 days with up to every every 2 as needed. Please provide patient with a spacer/AeroChamber Discharge Orders: Discharge ED (Routine); Ordered 06/29/25 Ordered By: Noel Sumner Referrals: Macarena Zepeda FNP [Primary Care Provider, Nurse Practitioner] - 1-3 days Patient Instructions: Asthma Exacerbation - Adult, Opioid Safety, Pain Management, Patient Portal & Camille Instructions Activity Restrictions/Additional Instructions: Use your breathing treatments every 4 hours while awake scheduled for the first 48 hours, then as needed. Medication as directed. Return for any problems. See your doctor on Monday as scheduled Print Language: Moldovan Coding Level of Care Code ED Garment Liner for Roxie Juan
[2025-06-29 00:17] VITALS: BP 161/100; PULSE 85; RESP 25; O2SAT 94
[2025-06-29 00:25] VITALS: BP 150/96; PULSE 83; RESP 25; O2SAT 95
== END 2025-06-29 00:30 | disposition home or self-care (01) ==
PROVIDERS: Emergency Provider Emergency Medicine; PCP Nurse Practitioner Family
DX: J45.901 Unspecified asthma with (acute) exacerbation (principal); I10 Essential (primary) hypertension
CPT/HCPCS: 71045; 94640; 99283; J7512; J9999

== ENCOUNTER 2025-07-18 17:52 | Emergency (ER) | payer MEDICAID, SELFPAY ==
[2025-07-18] VITALS (13 sets, daily range): BP systolic 141–202; BP diastolic 88–126; PULSE 99–108; RESP 24; TEMP 36.8; O2SAT 95–100; BMI 28.3
--- NOTE | 2025-07-18 18:02 | PC.NURSE ---
ekg done and patient is 94% room air
--- NOTE | 2025-07-18 18:14 | XRR_ITS ---
PROCEDURE INFORMATION: Exam: XR Chest Exam date and time: 07/18/2025 6:20 PM Age: 50 years old Clinical indication: Shortness of breath; C/O SOB. History of asthma. ; Additional info: Dyspnea/cough TECHNIQUE: Imaging protocol: Radiologic exam of the chest. Views: 1 view. COMPARISON: CR XR chest 1V portable [id number] 06/28/2025 11:08 PM FINDINGS: Lungs: Unremarkable. No infiltrate/edema or consolidation. Pleural spaces: Unremarkable. No pleural effusion. No pneumothorax. Heart/Mediastinum: Unremarkable. No cardiomegaly. Bones/joints: Visualized osseous structures show no acute abnormality. Mild old healed rib fracture 6th lateral rib on right. Other findings: No significant change with prior exam. XR/XR chest 1V portable [id number] IMPRESSION: No acute cardiopulmonary abnormality.
[2025-07-18 18:37] LABS: ABG PCO2 37.0 mmHg (35-45); ABG PH Result 7.43 (7.35-7.45); Alveolar-Arterial Oxygen Gradi 4.9 mmHg (5-10); Arterial Blood Gas Hematocrit 39.7 % (37-47); Blood Gas Allen Test Pos; Blood Gas Sample Type Arterial; Carboxyhemoglobin 0.7 %THgb (0.4-20.1); Glucose Level-ABG 138.0 mg/dL (70-115); HCO3 ABG 24.3 mmol/L (22-26); Ionized Calcium Level - ABG 1.2 mmol/L (1.1-1.4); Methemoglobin 0.1 % (0.4-1.5); Oxygen Saturation ABG 93.9; PO2 ABG 65.0 mmHg (80.0-100.0); Potassium Level - ABG 3.8 mmol/L (3.5-5.0); Sodium Level - ABG 139.0 mmol/L (131-143)
[2025-07-18 18:38] LABS: Blood Gas Operator Identificat MONRO; Blood Gas Sample Site Radial, right; PO2 FiO2 Ratio Arterial Blood 309
--- NOTE | 2025-07-18 18:40 | ECG_ITS ---
[facility] Test Date: 2025-07-18 Pat Name: Yen Harding Department: Room: Gender: Female [employer] Technician: : 1975 Requested By: Arnel Cherry Order Number: [id number] Reading MD: SPENSER BAUTISTA Measurements Intervals [place] Rate: 96 P: 42 RI: 146 QRS: 50 QRSD: 70 T: 66 QT: 352 QTc: 445 Interpretive Statements SINUS RHYTHM Compared to ECG 11/07/2024 09:03:25 Sinus tachycardia no longer present Electronically Signed On 07-20-2025 23:00:58 PIPELINE WELDER by SPENSER BAUTISTA [email or web address]
--- NOTE | 2025-07-18 18:45 | W.ED.SOB ---
HPI - SOB/Dyspnea General: Chief Complaint: Shortness of Breath/Dyspnea Stated Complaint: sob Time Seen by Provider: 07/18/25 18:14 History of Present Illness: HPI Narrative: 50-year-old female presents emergency room with complaints of difficulty with breathing. She has a history of asthma her last couple of days she feels like she is having worsening asthma attacks with shortness of breath audible wheezing coughing and tightness in her chest. Brief review of her chart shows that she has been seen in the beginning of every month for the last 4 months. 4 emergency room visits and 1 office visit. Today makes her fifth emergency room visit in the last 4 months. Patient denies any hemoptysis. She does have a nebulizer at home she has been using but it has not been as helpful she is using plain albuterol she noticed an improvement with the DuoNebs given here she denies fever or productive cough. Associated symptoms: Reports chest congestion; Deny abdominal pain, chest pain or fever(s) Related Data Previous Rx's ?Medication ?Instructions ?Recorded albuterol sulfate 90 mcg/actuation 1 puff inhalation Q6H PRN 05/31/24 aerosol inhaler shortness of breath or wheezing 30 days #8.5 grams albuterol sulfate 90 mcg/actuation 2 inh inhalation Q4H #6.7 grams 02/21/25 aerosol inhaler (Ventolin HFA) amoxicillin 875 mg-potassium 1 tab PO BID #20 tabs 04/08/25 clavulanate 125 mg tablet albuterol sulfate 90 mcg/actuation 2 inh inhalation Q4H #6.7 grams 06/02/25 aerosol inhaler (Ventolin HFA) prednisone 20 mg tablet 60 mg (3 x 20 mg) PO DAILY #20 tabs 06/02/25 ipratropium 0.5 mg-albuterol 3 mg 3 ml inhalation Q4H PRN shortness 06/29/25 (2.5 mg base)/3 mL nebulization of breath #180 mL soln prednisone 20 mg tablet 60 mg (3 x 20 mg) PO DAILY #15 tabs 06/29/25 albuterol sulfate 90 mcg/actuation 2 inh inhalation Q4H PRN shortness 07/18/25 aerosol inhaler of breath or wheezing #18 grams budesonide-formoterol HFA 80 2 inh inhalation BID #10.2 grams 07/18/25 mcg-4.5 mcg/actuation aerosol inhaler (Symbicort) prednisone 20 mg tablet 20 mg PO TID #15 tabs 07/18/25 Allergies Allergy/AdvReac Type Severity Reaction Status Date / Time No Known Allergies Allergy Verified 06/28/25 23:00 Review of Systems Const: Denies: fever(s) or chills Card: Denies: chest pain Resp: Reports: dyspnea, non-productive cough, wheezing and chest congestion GI: Denies: abdominal pain : Denies: dysuria, urinary frequency or urinary urgency Musc: Denies: neck pain or back pain Skin/Breast: Denies: rash PFSH ED PFSH: Medical History RLL pneumonia Oct Hypothyroidism Asthma Hypertension Depression Surgical History H/O thyroidectomy Social History Smoking and tobacco/nicotine status: never used tobacco/nicotine Alcohol intake: never Substance/Drug Use: current Substance/Drug use frequency: few times a month Physical Exam Const: GENERAL APPEARANCE: cooperative ORIENTATION/CONSCIOUSNESS: Yes awake, Yes oriented to person, Yes oriented to place and Yes oriented to time HENMT: COMMON NORMALS: normocephalic, atraumatic and hearing grossly normal bilaterally HEAD & SCALP: normocephalic and atraumatic Resp: COMMON NORMALS: normal respiratory effort, No retractions and No use of accessory muscles AUSCULTATION: wheezes Cardio: COMMON NORMALS: regular rate, regular rhythm and No murmurs present (Cardio) RATE: regular rate RHYTHM: regular rhythm GI: COMMON NORMALS: Soft to palpation and No hepatosplenomegaly present AUSCULTATION: Yes normoactive bowel sounds PALPATION: Yes Soft to palpation, No Tenderness to palpation present (GI), No Guarding due to palpation present (GI) and Yes No hepatosplenomegaly present Extremity: COMMON NORMALS: normal to inspection, capillary refill normal, no clubbing, cyanosis or edema, no calf tenderness and no pedal edema Neuro: SENSORIUM/ORIENTATION: Yes oriented to person, Yes oriented to place and Yes oriented to time Skin: COMMON NORMALS: no rashes or lesions noted GENERAL SKIN EXAM: no rashes or lesions noted Course Vital Signs: Vital signs: Vital Signs Temperature 98.3 F 07/18/25 18:20 Pulse Rate 99 07/18/25 18:42 Respiratory Rate 24 H 07/18/25 18:34 Blood Pressure 141/88 07/18/25 19:15 Pulse Oximetry 98 07/18/25 19:45 Oxygen Delivery Me thod Room Air 07/18/25 18:34 Oxygen Flow Rate 2 07/18/25 18:20 MDM - SOB/Dyspnea Medical Decision Making Medical decision making Social determinants: Recently moved is not established with a new PCP lost some of her medications during the move I reviewed the patient's medical record. I reviewed the patient's current home meds. Alternate historians: Significant other accompanies her to the visit Differential diagnosis: Pneumonia, flu, COVID, RSV, asthma exacerbation Lab Review: Mild leukocytosis white count of 12 9. Hemoglobin normal. Blood gas shows pH 743 pCO2 37 pO2 65. Sodium 138 potassium 3.6 anion gap 15.6 BUN 24 creatinine 1.1 liver functions T. bili are normal flu COVID and RSV are negative Imaging:Chest x-ray no acute findings no infiltrates no increased pulmonary vasculature no pneumonia no pneumothorax Assessment of risk Level of risk: Low Hospitalization considerations: No indication for hospitalization Reexamination: Improved Assessment and plan: Discharge home steroid taper start Symbicort 2 puffs twice daily. Continue albuterol as needed. Establish and follow-up with primary care return if has further problems. Reviewed findings with the patient. Avoid irritants such as smoke or allergens. Lab Data 07/18/25 18:46 07/18/25 18:46 Labs/Radiology: Radiology Impressions Chest X-Ray 07/18/25 18:14 IMPRESSION: No acute cardiopulmonary abnormality. Laboratory Results WBC 12.90 10^3/uL (3.29-11.43) H 07/18/25 18:46 RBC 4.20 10^6/uL (3.85-5.65) 07/18/25 18:46 Hgb 12.60 g/dL (11.27-16.99) 07/18/25 18:46 Hct 39.1 % (36-47) 07/18/25 18:46 MCV 93.1 fl (85-98) 07/18/25 18:46 MCH 30.0 pg (27-33) 07/18/25 18:46 MCHC 32.2 g/dL (30-55) 07/18/25 18:46 RDW 13.3 % (12.1-15.1) 07/18/25 18:46 Plt Count 267 10^3/cmm (157-399) 07/18/25 18:46 MPV 9.5 fL (7.4-10.4) 07/18/25 18:46 Neut % (Auto) 65.5 % 07/18/25 18:46 Lymph % (Auto) 11.3 % 07/18/25 18:46 Pine % (Auto) 5.8 % 07/18/25 18:46 Eos % (Auto) 16.4 % 07/18/25 18:46 Baso % (Auto) 0.5 % 07/18/25 18:46 Neut # (Auto) 8.46 10^3/uL (1.8-7.7) H 07/18/25 18:46 Lymph # (Auto) 1.5 10^3/uL (0.8-4.8) 07/18/25 18:46 Pine # (Auto) 0.8 10^3/uL (0.2-0.9) 07/18/25 18:46 Eos # (Auto) 2.1 10^3/uL (0.0-0.8) H 07/18/25 18:46 Baso # (Auto) 0.1 10^3/uL (0.0-0.1) 07/18/25 18:46 Nucleated RBC % (auto) 0 % 07/18/25 18:46 Nucleated RBCs # 0.0 /100WBC 07/18/25 18:46 Specimen Type Arterial 07/18/25 18:25 Sample Site Radial, right 07/18/25 18:25 ABG pH 7.43 (7.35-7.45) 07/18/25 18:25 ABG pCO2 37.0 mmHg (35-45) 07/18/25 18:25 ABG pO2 65.0 mmHg (80.0-100.0) L 07/18/25 18:25 ABG PO2/FiO2 Ratio 309 07/18/25 18:25 ABG HCO3 24.3 mmol/L (22-26) 07/18/25 18:25 ABG O2 Saturation 93.9 07/18/25 18:25 ABG Base Excess 0.1 mmol/L (-2.0-2.0) 07/18/25 18:25 Sean Test Pos 07/18/25 18:25 A-a O2 Gradient 4.9 mmHg (5-10) L 07/18/25 18:25 Hematocrit 39.7 % (37-47) 07/18/25 18:25 Hgb O2 Saturation 93.1 % (95-100) L 07/18/25 18:25 Carboxyhemoglobin 0.7 %THgb (0.4-20.1) 07/18/25 18:25 Methemoglobin 0.1 % (0.4-1.5) L 07/18/25 18:25 Total Hemoglobin 12.9 g/dL (12-16) 07/18/25 18:25 Sodium 139.0 mmol/L (131-143) 07/18/25 18:25 Potassium 3.8 mmol/L (3.5-5.0) 07/18/25 18:25 Glucose 138.0 mg/dL (70-115) H 07/18/25 18:25 Ionized Calcium 1.2 mmol/L (1.1-1.4) 07/18/25 18:25 O2 Delivery Device Room air 07/18/25 18:25 FiO2 21.0 % 07/18/25 18:25 Title Vehicle Service Attendant ID Nasreen 07/18/25 18:25 Sodium 138 mmol/L (136-145) 07/18/25 18:46 Potassium 3.6 mmol/L (3.5-5.1) 07/18/25 18:46 Chloride 102 mmol/L (98-107) 07/18/25 18:46 Carbon Dioxide 24 mmol/L (22-29) 07/18/25 18:46 Anion Gap 15.6 (5-19) 07/18/25 18:46 BUN 24 mg/dL (6-20) H 07/18/25 18:46 Creatinine 1.1 mg/dL (0.5-0.9) H 07/18/25 18:46 GFR Calculation 52.6 mL/min (90-130) L 07/18/25 18:46 Glucose 126 mg/dL (65-115) H 07/18/25 18:46 Calculated Osmolality 292 mOsm/kg (285-295) 07/18/25 18:46 Calcium 9.3 mg/dL (8.5-10.5) 07/18/25 18:46 Magnesium 2.0 mg/dL (1.7-2.3) 07/18/25 18:46 Total Bilirubin 0.3 mg/dL (0.15-1.2) 07/18/25 18:46 AST 25 U/L (0-32) 07/18/25 18:46 ALT 11 U/L (0-33) 07/18/25 18:46 Alkaline Phosphatase 85 U/L (35-105) 07/18/25 18:46 Total Protein 6.5 g/dL (6.6-8.7) L 07/18/25 18:46 Albumin 3.9 g/dL (3.5-5.2) 07/18/25 18:46 Globulin 2.6 g/dL (1.3-4.6) 07/18/25 18:46 Lipase 47 U/L (13-60) 07/18/25 18:46 Influenza A (PCR) Negative (Negative) 07/18/25 18:36 Influenza Type B (PCR) Negative (Negative) 07/18/25 18:36 RSV (PCR) Negative (Negative) 07/18/25 18:36 SARS-CoV-2 (PCR) Negative (Negative) 07/18/25 18:36 All radiology interpretation(s) finalized by discharge EKG Data EKG 1: I personally reviewed and interpreted this EKG as follows: Interpretation: EKG 07/18/2025 1840 sinus rhythm rate of 96. [place] interval 146 QTc 445. Previous EKG 11/07/[address]24 sinus tachycardia no acute ST changes noted on today's EKG Discharge Plan Discharge Patient Disposition: Home Clinical Impression: Asthma with exacerbation Condition: Stable Prescriptions: New budesonide-formoterol [Symbicort] 80-4.5 mcg/actuation HFA aerosol inhaler 2 inh inhalation BID Qty: 10.2 0RF prednisone 20 mg tablet 20 mg PO TID Qty: 15 0RF Rx Instructions: 1 p.o. 3 times daily x3 days, 1 p.o. twice daily x2 days, 1 p.o. daily x2 days albuterol sulfate 90 mcg/actuation HFA aerosol inhaler 2 inh INHALATION Q4H PRN (Reason: shortness of breath or wheezing) Qty: 18 0RF No Action amoxicillin-pot clavulanate 875-125 mg tablet 1 tab PO BID Qty: 20 0RF albuterol sulfate 90 mcg/actuation HFA aerosol inhaler 1 puff inhalation Q6H PRN (Reason: shortness of breath or wheezing) 30 Days Qty: 8.5 0RF ipratropium-albuterol 0.5 mg-3 mg(2.5 mg base)/3 mL solution for nebulization 3 ml inhalation Q4H PRN (Reason: shortness of breath) Qty: 180 0RF Rx Instructions: until breathing returns to target peak flow/parameters prednisone 20 mg tablet 60 mg PO DAILY Qty: 15 0RF Rx Instructions: 3 tabs (60 mg) x 3 days. 2 tabs (40 mg) x 3 days. 1 tab (20 mg) x 3 days. 1/2 tab (10 mg) x 4 days albuterol sulfate [Ventolin HFA] 90 mcg/actuation HFA aerosol inhaler 2 inh inhalation Q4H Qty: 6.7 0RF Rx Instructions: Please schedule every 4 hours for the next 3 days with up to every every 2 as needed. Please provide patient with a spacer/AeroChamber prednisone 20 mg tablet 60 mg PO DAILY Qty: 20 0RF Rx Instructions: 3 tabs (60 mg) x 3 days. 2 tabs (40 mg) x 3 days. 1 tab (20 mg) x 3 days. 1/2 tab (10 mg) x 4 days albuterol sulfate [Ventolin HFA] 90 mcg/actuation HFA aerosol inhaler 2 inh inhalation Q4H Qty: 6.7 0RF Rx Instructions: Please schedule every 4 hours for the next 3 days with up to every every 2 as needed. Please provide patient with a spacer/AeroChamber Discharge Orders: Discharge ED (Routine); Ordered 07/18/25 Ordered By: Arnel Ashby Referrals: Macarena Zepeda FNP [Primary Care Provider, Nurse Practitioner] Discharge Diet: Usual diet Discharge Activity: Increase activity as tolerated Patient Instructions: Opioid Safety, Pain Management, Patient Portal & Camille Instructions Activity Restrictions/Additional Instructions: Thank you for choosing [facility] for your healthcare needs today. It is very important that you follow up as instructed or that you return to the Emergency Department should you have concerns or if your condition changes or worsens in any way. Emergency department visits are focused on emergent conditions, in some cases you may require further evaluation on an outpatient basis. You were seen in the emergency room with complaints of wheezing and congestion. Chest x-ray did not show any infiltrates. Testing for flu COVID and RSV was negative. Recommend a steroid taper additionally we will start you on Symbicort 2 puffs twice a day. If needed follow-up with your primary care doctor or the cook taco next week. Return if you have further problems continue to use albuterol as needed. (Please note that included in your discharge packet is information concerning opioid safety and pain management. This information is given to all patients were discharged from the ER regardless of their discharge diagnosis or the medicines they usually take or are prescribed.) Print Language: Mongolian Coding Level of Care Code ED Financing Analyst for Roxie Juan
[2025-07-18 18:53] LABS: Hematocrit 39.1 % (36-47); Hemoglobin 12.60 g/dL (11.27-16.99); Mean Corpuscular HGB Conc 32.2 g/dL (30-55); Mean Corpuscular Hemoglobin 30.0 pg (27-33); Mean Corpuscular Volume 93.1 fl (85-98); Nucleated Red Blood Cells % 0 %; Platelet Count 267 10^3/cmm (157-399); Red Blood Count 4.20 10^6/uL (3.85-5.65); White Blood Count 12.90 10^3/uL (3.29-11.43)
[2025-07-18 19:15] LABS: Alanine Aminotransferase 11 U/L (0-33); Albumin Level 3.9 g/dL (3.5-5.2); Alkaline Phosphatase 85 U/L (35-105); Anion Gap 15.6 (5-19); Aspartate Amino Transferase 25 U/L (0-32); Blood Urea Nitrogen 24 mg/dL (6-20); Calcium 9.3 mg/dL (8.5-10.5); Carbon Dioxide 24 mmol/L (22-29); Chloride 102 mmol/L (98-107); Globulin 2.6 g/dL (1.3-4.6); Glucose 126 mg/dL (65-115); Lipase 47 U/L (13-60); Magnesium 2.0 mg/dL (1.7-2.3); Osmolality Calculated 292 mOsm/kg (285-295); Potassium 3.6 mmol/L (3.5-5.1); Sodium 138 mmol/L (136-145); Total Protein 6.5 g/dL (6.6-8.7)
[2025-07-18 19:18] LABS: Respiratory Syncytial Virus Ce NEGATIVE (Negative); SARS-CoV-2 PCR NEGATIVE (Negative)
[2025-07-18] MEDS: methylPREDNISolone sod succ 125 mg/2 mL INJ IVP (19:43)
[2025-07-18] MEDS: magnesium sulfate premix 1 GM/100 ML PIGGYBACK IV (19:50)
== END 2025-07-18 21:36 | disposition home or self-care (01) ==
PROVIDERS: Emergency Provider Family Medicine; PCP Nurse Practitioner Family
DX: J45.901 Unspecified asthma with (acute) exacerbation (principal); Z11.52 Encounter for screening for COVID-19; I10 Essential (primary) hypertension
CPT/HCPCS: 36415; 36600; 71045; 80051; 80053; 82330; 82805; 83690; 83735; 85025; 87637; 93005; 94640; 96365; 96375; 99285; J2919; J3475; J7030; J9999